=== PATIENT | male | born 1960 ===

== ENCOUNTER 2020-03-22 06:45 | Outpatient (REF) | payer MEDICARE, MEDICAID, SELFPAY ==
[2020-03-22 07:18] LABS: MANUAL DIFF FLAG NO
[2020-03-22 07:25] LABS: Basophils Absolute Auto 0.1 X10*3/uL (0.0-0.2); Basophils Percent Auto 0.7 % (0-2); Eosinophils Absolute Auto 0.2 X10*3/uL (0.0-0.4); Eosinophils Percent Auto 2.9 % (0-4); Hematocrit 41.3 % (42-52); Hemoglobin 13.8 g/dl (14.0-18.0); Imm Gran Abs Auto 0.01 X10*3/uL (0.00-0.03); Imm Gran Pct Auto 0.1 % (0.0-0.4); Lymphocytes Absolute Auto 2.3 X10*3/uL (1.2-4.9); Mean Corpuscular HGB Conc 33.4 g/dl (31.0-36.0); Mean Corpuscular Hemoglobin 29.9 pg (27.0-33.0); Mean Corpuscular Volume 89.4 fL (80-98); Monocytes Absolute Auto 0.7 X10*3/uL (0.1-1.2); Monocytes Percent Auto 10.1 % (2-11); Neutrophils Absolute Auto 3.6 X10*3/uL (2.0-8.3); Neutrophils Percent Auto 52.2 % (45-73); Platelet Count 192 X10*3/uL (160-400); Red Blood Count 4.62 X10*6/uL (4.60-5.80); Red Cell Distribution Width 12.6 % (11.0-16.0); White Blood Count 6.9 X10*3/uL (4.8-10.8)
[2020-03-22 07:41] LABS: Alanine Aminotransferase 76 U/L (0-40); Albumin Level 4.2 g/dL (3.5-5.0); Alkaline Phosphatase 74 U/L (39-117); Anion Gap 14 (12-20); Aspartate Amino Transferase 35 U/L (5-37); Bilirubin Total 0.3 mg/dL (0.0-1.0); Blood Urea Nitrogen 10 mg/dL (9-16); Calcium 8.9 mg/dL (8.4-10.2); Carbon Dioxide 25 mmol/L (22-29); Chloride 103 mmol/L (96-108); Cholesterol 121 mg/dL; Estimated Glomerular Filt Rate > 60; Glucose Random 142 mg/dL (60-115); HDL Cholesterol 39 mg/dL; LDL Cholesterol Calculated 63 mg/dl; Potassium 3.8 mmol/l (3.3-5.1); Sodium 138 mmol/L (135-145); Total Protein 7.5 g/dL (6.5-8.0); Triglycerides 95 mg/dL
[2020-03-22 08:06] LABS: Folate 13.8 ng/mL (> or = 4.0); Free T4 (Free Thyroxine) 0.82 ng/dL (0.71-1.85); Prostate Specific Antigen Scr 0.05 ng/mL (<0.05-4.0); Thyroid Stimulating Hormone 1.43 uIU/mL (0.32-4.0); Vitamin B12 525 pg/mL (200-900)
[2020-03-22 09:20] LABS: Creatinine Urine 158.94 mg/dL; Microalbum/Creatinine Ratio Ur 13.8 ug/mg cr
== END 2020-03-22 06:46 | disposition home or self-care (01) ==
LOC: HO.LAB 06:45
PROVIDERS: Visit Provider Internal Medicine
DX: E11.65 Type 2 diabetes mellitus with hyperglycemia (principal); E78.00 Pure hypercholesterolemia, unspecified; I10 Essential (primary) hypertension; Z85.46 Personal history of malignant neoplasm of prostate
CPT/HCPCS: 36415; 80053; 80061; 82043; 82607; 82746; 84153; 84439; 84443; 85025

== ENCOUNTER → 2020-09-27 10:48 | Outpatient (BNVA) | payer MEDICARE, MEDICAID, SELFPAY | PROVIDERS: PCP Internal Medicine; Visit Provider Urology | DX: Z13.89 Encounter for screening for other disorder (principal) | CPT/HCPCS: 99212 ==

== ENCOUNTER 2021-10-16 15:46 | Outpatient (REF) | payer MEDICARE, MEDICAID, SELFPAY ==
[2021-10-16 16:13] LABS: MANUAL DIFF FLAG NO
[2021-10-16 16:40] LABS: Basophils Absolute Auto 0.1 X10*3/uL (0.0-0.2); Basophils Percent Auto 0.7 % (0-2); Eosinophils Absolute Auto 0.2 X10*3/uL (0.0-0.4); Eosinophils Percent Auto 2.7 % (0-4); Hematocrit 41.3 % (42.0-52.0); Hemoglobin 13.8 g/dl (14.0-18.0); Imm Gran Abs Auto 0.01 X10*3/uL (0.00-0.03); Imm Gran Pct Auto 0.1 % (0.0-0.4); Lymphocytes Absolute Auto 2.9 X10*3/uL (1.2-4.9); Lymphocytes Percent Auto 42.7 % (20-40); Mean Corpuscular HGB Conc 33.4 g/dl (31.0-36.0); Mean Corpuscular Hemoglobin 29.7 pg (27.0-33.0); Mean Corpuscular Volume 88.8 fL (80.0-98.0); Monocytes Absolute Auto 0.6 X10*3/uL (0.1-1.2); Monocytes Percent Auto 8.7 % (2-11); Neutrophils Percent Auto 45.1 % (45-73); Platelet Count 187 X10*3/uL (160-400); Red Blood Count 4.65 X10*6/uL (4.60-5.80); Red Cell Distribution Width 12.6 % (11.0-16.0); White Blood Count 6.7 X10*3/uL (4.8-10.8)
[2021-10-16 17:27] LABS: Alanine Aminotransferase 62 U/L (0-40); Albumin Level 4.5 g/dL (3.5-5.0); Alkaline Phosphatase 84 U/L (39-117); Anion Gap 15 (12-20); Aspartate Amino Transferase 32 U/L (5-37); Bilirubin Total 0.4 mg/dL (0.0-1.0); Blood Urea Nitrogen 13 mg/dL (9-16); Carbon Dioxide 24 mmol/L (22-29); Chloride 102 mmol/L (96-108); Cholesterol 122 mg/dL; Estimated Glomerular Filt Rate > 60; Glucose Fasting 111 mg/dL (60-99); HDL Cholesterol 36 mg/dL; LDL Cholesterol Calculated 67 mg/dl; Potassium 4.1 mmol/L (3.3-5.1); Sodium 137 mmol/L (135-145); Total Protein 7.9 g/dL (6.5-8.0); Triglycerides 96 mg/dL
[2021-10-16 17:54] LABS: Prostate Specific Antigen < 0.05 ng/mL (<0.05-4.0)
[2021-10-17 05:37] LABS: Estimated Average Glucose 160 mg/dL; Hemoglobin A1c % 7.2 %
== END 2021-10-16 15:47 | disposition home or self-care (01) ==
LOC: HO.LAB 15:46
PROVIDERS: Nurse Practitioner Acute Care; PCP Internal Medicine; Visit Provider Urology
DX: C61 Malignant neoplasm of prostate (principal); E11.65 Type 2 diabetes mellitus with hyperglycemia; Z12.5 Encounter for screening for malignant neoplasm of prostate
CPT/HCPCS: 36415; 80053; 80061; 83036; 84153; 85025

== ENCOUNTER → 2021-12-04 09:08 | Outpatient (BNVA) | payer MEDICARE, MEDICAID, SELFPAY | PROVIDERS: PCP Internal Medicine; Visit Provider Urology | DX: C61 Malignant neoplasm of prostate (principal); R39.15 Urgency of urination; R35.0 Frequency of micturition; R32 Unspecified urinary incontinence; Z79.899 Other long term (current) drug therapy | CPT/HCPCS: 51798; 99212 ==

== ENCOUNTER 2022-06-05 16:15 | Outpatient (REF) | payer MEDICARE, MEDICAID, SELFPAY ==
[2022-06-05 18:15] LABS: Prostate Specific Antigen < 0.10 ng/mL (<0.05-4.0)
== END 2022-06-05 16:16 | disposition home or self-care (01) ==
LOC: HO.LAB 16:15
PROVIDERS: PCP Internal Medicine; Visit Provider Urology
DX: Z12.5 Encounter for screening for malignant neoplasm of prostate (principal); C61 Malignant neoplasm of prostate; N13.8 Other obstructive and reflux uropathy; N40.1 Benign prostatic hyperplasia with lower urinary tract symptoms
CPT/HCPCS: 36415; 84153

== ENCOUNTER → 2022-06-12 11:37 | Outpatient (BNVA) | payer MEDICARE, MEDICAID, SELFPAY | PROVIDERS: PCP Internal Medicine; Visit Provider Urology | DX: R35.0 Frequency of micturition (principal); R39.15 Urgency of urination | CPT/HCPCS: 51798; 99212 ==

== ENCOUNTER 2022-11-06 06:45 | Outpatient (REF) | payer MEDICARE, MEDICAID, SELFPAY ==
[2022-11-06 06:57] LABS: MANUAL DIFF FLAG NO
[2022-11-06 07:32] LABS: Basophils Absolute Auto 0.1 X10*3/uL (0.0-0.2); Basophils Percent Auto 1.4 % (0-2); Eosinophils Absolute Auto 0.1 X10*3/uL (0.0-0.4); Eosinophils Percent Auto 2.7 % (0-4); Hematocrit 41.2 % (42.0-52.0); Hemoglobin 13.6 g/dl (14.0-18.0); Immature Retic Fraction 8.1 % (2.3-13.4); Lymphocytes Percent Auto 44.3 % (20-40); Mean Corpuscular Hemoglobin 29.4 pg (27.0-33.0); Mean Corpuscular Volume 89.2 fL (80.0-98.0); Mean Platelet Volume 11.1 fL (9.4-12.4); Monocytes Absolute Auto 0.5 X10*3/uL (0.1-1.2); Monocytes Percent Auto 12.2 % (2-11); Neutrophils Absolute Auto 1.7 x10*3/uL (2.0-8.3); Neutrophils Percent Auto 39.4 % (45-73); Platelet Count 191 X10*3/uL (160-400); Red Blood Count 4.62 X10*6/uL (4.60-5.80); Red Cell Distribution Width 12.7 % (11.0-16.0); Retic HGB Equivalent 35.7 pg (30.0-35.0); Reticulocyte Percent 1.2 % (0.5-1.8); Reticulocytes Absolute 0.057 X10*6/uL (0.026-0.095); White Blood Count 4.4 X10*3/uL (4.8-10.8)
[2022-11-06 08:24] LABS: Creatinine Urine 83.02 mg/dL
[2022-11-06 08:26] LABS: Alanine Aminotransferase 46 U/L (0-40); Albumin Level 4.1 g/dL (3.5-5.0); Alkaline Phosphatase 74 U/L (39-117); Anion Gap 16 (12-20); Aspartate Amino Transferase 25 U/L (5-37); Bilirubin Total 0.5 mg/dL (0.0-1.0); Blood Urea Nitrogen 10 mg/dL (9-16); Calcium 9.2 mg/dL (8.4-10.2); Carbon Dioxide 23 mmol/L (22-29); Chloride 103 mmol/L (96-108); Cholesterol 114 mg/dL; Estimated Glomerular Filt Rate > 60; Glucose Random 130 mg/dL (60-115); HDL Cholesterol 32 mg/dL; LDL Cholesterol Calculated 67 mg/dl; Potassium 3.7 mmol/L (3.3-5.1); Sodium 138 mmol/L (135-145); Total Protein 7.7 g/dL (6.5-8.0); Triglycerides 76 mg/dL
[2022-11-06 08:35] LABS: PSA,Total (Free>4and<10) < 0.10 ng/mL (0.00-4.00)
[2022-11-06 08:46] LABS: Ferritin 450 ng/mL (20-250); Free T4 (Free Thyroxine) 0.93 ng/dL (0.71-1.85); Thyroid Stimulating Hormone 0.96 uIU/mL (0.32-4.0)
[2022-11-06 08:49] LABS: Folate 12.1 ng/mL (> or = 4.0); Vitamin B12 645 pg/mL (200-900)
== END 2022-11-06 06:46 | disposition home or self-care (01) ==
LOC: HO.LAB 06:45
PROVIDERS: PCP Internal Medicine; Visit Provider Internal Medicine
DX: Z12.5 Encounter for screening for malignant neoplasm of prostate (principal); E11.65 Type 2 diabetes mellitus with hyperglycemia; E78.00 Pure hypercholesterolemia, unspecified; Z85.46 Personal history of malignant neoplasm of prostate
CPT/HCPCS: 36415; 80053; 80061; 82043; 82607; 82728; 82746; 84153; 84439; 84443; 85025; 85045

== ENCOUNTER 2022-11-14 12:22 | Outpatient (AMB) | payer MEDICARE, MEDICAID, SELFPAY ==
[2022-11-14 12:25] VITALS: BP 118/76; PULSE 74; O2SAT 95; BMI 28.9
--- NOTE | 2022-11-14 12:25 | A.OFFPC_ITS ---
Vital Signs 11/14/22 12:25 Height 6 ft Weight 96.615 kg BMI 28.9 BP 118/76 Blood Pressure Location Lt brachial Position Sitting Pulse 74 Pulse Source Pulse Oximeter Pulse Oximetry (%) 95 Oxygen Delivery Method Room Air Intake Visit Reasons: DM Allergies No Known Allergies [No Known Allergies*] Allergy (Verified 11/14/22 12:25) Medication List - Last Reconciled 11/14/22 by Mp Rust MD acetaminophen ER (Mapap Arthritis Pain) 650 mg PO Q8H PRN amlodipine 5 mg PO DAILY ammonium lactate 12% 1 appl topical BID blood sugar diagnostic (Contour Next Test Strips) As directed calcium carbonate 600 mg PO DAILY cholecalciferol (vitamin D3) 50 mcg (2 x 25 mcg (1,000 unit)) PO DAILY clotrimazole 1% 1 appl topical BID [countour NExT test strips check the blood sugar once a day As directed] fluvoxamine 100 mg PO BID hydroxyzine HCl 25 mg PO Q8H PRN lancets (BD Ultra-Fine II Lancets) As directed check the blood sugars once a day lisinopril 10 mg PO DAILY 90 days lorazepam (Ativan) 0.5 mg orally 30 minutes before doctor's appointment; 30 days metformin 1,000 mg PO BID 30 days mineral oil-isopropyl myristat (Hydrocerin lotion) 1 appl topical TID-QID PRN oxybutynin chloride ER 5 mg PO DAILY 90 days [id number] 5-10-100 mg/5 mL (Tussin CF (PE-DM-guaif)) 5 mL PO Q6H PRN risperidone (Risperdal) 1 mg PO DAILY risperidone (Risperdal) 2 mg with 1 mg Q 8 am daily; tamsulosin 0.4 mg PO QPM Tobacco use date assessed: 06/10/22 Fall risk assessment: No Falls in past year Last assessed Fall Risk: 11/14/22 Dental Screening Dental Screen Date: 11/14/22 Did you have a dental visit in the last 12 months?: Yes Did you have a dental problem in the last 6 months where you did not have access to dental care?: No Was dental information given to patient?: Patient has dentist HPI DM HPI Details 62-year-old overweight male with a history of echolalia history of prostate cancer hypertension diabetes mellitus and tubular adenoma coming in for follow-up. Last seen in July 2022 blood work requested [facility] Medical History (Updated 11/14/22 @ 12:54 by Mp Rust MD) Anxiety COVID-19 virus infection Echolalia History of prostate cancer Hypertension Obesity (BMI 30-39.9) Screening for colon cancer Tubular adenoma of colon Type 2 diabetes mellitus with hyperglycemia Urinary incontinence Surgical History History of hemicolectomy Family History Father No problems noted. Mother No problems noted. Social History Housing: Assisted Living Facility Alcohol intake: never Patient Tobacco Use Status: Never used Tobacco e-Cigarette/Vaping Use: Never Used Second Hand Smoke Exposure: No service: No Current occupational status: disabled Current occupational exposures/hazards: No Cognitive needs: Yes Hearing needs: No Vision needs: No Questionnaire PHQ-9 Over the last 2 weeks, how often have you been bothered by any of the following problems? 1. Little interest or pleasure in doing things: nearly every day 2. Feeling down, depressed, or hopeless: nearly every day 3. Trouble falling or staying asleep, or sleeping too much: nearly every day 4. Feeling tired or having little energy: nearly every day 5. Poor appetite or overeating: nearly every day 6. Feeling bad about yourself - or that you are a failure or have let yourself or your family down: nearly every day 7. Trouble concentrating on things, such as reading the newspaper or watching television: nearly every day 8. Moving or speaking so slowly that other people could have noticed. Or the opposite - being so fidgety or restless that you have been moving around a lot more than usual: nearly every day 9. Thoughts that you would be better off or of hurting yourself in some way: not at all Total score: 24 Depression Screening Interpretation: Positive Depression Screening Follow-up: In treatment 99805 - PHQ-9 Billing: Yes Source: Developed by Drs. Mann Jarvis, Karime Fischer, Christian Cabrera and colleagues, with an educational july from [employer]. Thrive Questionnaire Date Thrive assessed: 08/08/22 AUDIT C Alcohol Use Questionnaire (AUDIT-C) 1. How often do you have a drink containing alcohol?: Never 2. How many drinks containing alcohol do you have on a typical day when you are drinking?: 1 or 2 (0) 3. How often do you have six or more drinks on one occasion?: Never Total Score: 0 Score Reviewed/Action Taken: No DEVIN-7 AMB Questionnaire DEVIN-7 Date DEVIN - 7 assessed: 08/08/22 Source: Developed by Drs. Mann Jarvis, Karime Fischer, Christian Cabrera and colleagues, with an educational july from [employer]. Physical exam (Primary Care) Vital Signs: Last Vital Signs Pulse 74 11/14/22 12:25 BP 118/76 11/14/22 12:25 Pulse Ox 95 11/14/22 12:25 Oxygen Delivery Method Room Air 11/14/22 12:25 BMI result Body Mass Index 28.9 Tobacco/Smoking Status: Tobacco use Status Tobacco use date assessed 06/10/22 11/14/22 12:26 Patient Tobacco Use Status Never used Tobacco 11/14/22 12:26 e-Cigarette/Vaping Use Never Used 11/14/22 12:26 PHQ-9: PHQ-9 Score PHQ-9: Total score 24 11/14/22 12:44 Depression Screening Interpretation: Positive Depression Screening Follow-up: In treatment Thrive Assessment: Date of Thrive Assessment Date Thrive assessed 08/08/22 11/14/22 12:26 Const General: alert; No acute distress Eyes Conjunctivae: conjunctivae normal Resp Auscultation: clear to auscultation bilaterally Cardio Rate: regular rate Rhythm: regular rhythm GI Inspection: Yes normal to inspection Extrem General: Yes normal to inspection and No edema Results AMB Hemoglobin A1c AMB Hemoglobin A1c 6.4 % Last Edit by Jossie Butt CMA on 11/14/22 12 :45 Immunizations tetanus-diphtheria toxoids-Td Performing Provider: Mp Rust MD Administered by: Jossie Butt CMA on 11/14/22 13:02 Dose Route Admin Location Lot Number Expiration Date NDC Senior Asset Manager 0.5 mL IM Left Deltoid [id number] 08/17/23 [id number] [employer] VIS Given Date VIS Provided VIS Publication Date 11/14/22 Single Vaccine 20 Eligibility Eligibility Date Funding Source Not VFC Eligible 11/14/22 State funds Results Reviewed Results Reviewed: Laboratory Last Values Hgb A1c (Clinic) 6.4 % (4.0-6.0) H 11/14/22 12:26 Assessment and Plan Assessment & Plan (1) Type 2 diabetes mellitus with hyperglycemia: Comment: Dr. Sanchez Code(s): E11.65 - Type 2 diabetes mellitus with hyperglycemia Qualifiers: Diabetes mellitus residential insulin use: without terminal operations supervisor use Qualified Code(s): E11.65 - Type 2 diabetes mellitus with hyperglycemia Plan: Decrease the amount of carbohydrate intake, pasta, bread, rice and potatoes are all sugar and that is aside from all the sweet stuff, remember that fruits are good but they are Sweet also. Hemoglobin A1c goal of less than 6.5 patient is presently on metformin 1000 mg twice a day (2) Hypertension: Code(s): I10 - Essential (primary) hypertension Qualifiers: Hypertension type: essential hypertension Qualified Code(s): I10 - Essential (primary) hypertension Plan: Continue with blood pressure medication. Decrease salt intake and exercise patient is taking lisinopril 10 mg once a day and amlodipine 5 mg once a day (3) History of prostate cancer: Comment: Two thousand fourteen seed implant Maria R March 2014Dr. Barker Code(s): Z85.46 - Personal history of malignant neoplasm of prostate Plan: Patient is on tamsulosin prostate number is less than 0.1 (4) Overweight (BMI 25.0-29.9): Code(s): E66.3 - Overweight Plan: Continue with diet and exercise (5) Tubular adenoma of colon: Comment: February 2012 tubular adenoma 3 years February 2016 Code(s): D12.6 - Benign neoplasm of colon, unspecified Plan: Reminded about colon cancer screening (6) Echolalia: Code(s): R48.8 - Other symbolic dysfunctions Plan: Continue to follow-up with psychiatry and counseling (7) Contact dermatitis and other eczema due to other specified agent: Code(s): L25.8 - Unspecified contact dermatitis due to other agents Orders: Orders Td State Immunization Today Z23 - Encounter for immunization AMB Hemoglobin A1c Today Z13.9 - Encounter for screening, unspecified Referrals Gastroenterology Referral D12.6 - Benign neoplasm of colon, unspecified Medications: New triamcinolone acetonide 0.5% apply to posterior neck rash 1 appl topical BID 15 grams 0RF 1 week L25.8 - Unspecified contact dermatitis due to other agents Coding Level of Care Code Est Pt Level 4 (19299) Diagnoses Type 2 diabetes mellitus with hyperglycemia E11.65 Diabetes mellitus terminal operations supervisor insulin use: without terminal operations supervisor use Hypertension I10 Hypertension type: essential hypertension History of prostate cancer Z85.46 Overweight (BMI 25.0-29.9) E66.3 Tubular adenoma of colon D12.6 Echolalia R48.8 Contact dermatitis and other eczema due to other specified agent L25.8
== END 2022-11-14 13:09 | disposition home or self-care (01) ==
PROVIDERS: Visit Provider Internal Medicine
DX: E11.65 Type 2 diabetes mellitus with hyperglycemia (principal); I10 Essential (primary) hypertension; Z85.46 Personal history of malignant neoplasm of prostate; Z23 Encounter for immunization; E66.3 Overweight; D12.6 Benign neoplasm of colon, unspecified; R48.8 Other symbolic dysfunctions; L25.8 Unspecified contact dermatitis due to other agents; Z13.9 Encounter for screening, unspecified
CPT/HCPCS: 83036; 90471; 90714; 99214

== ENCOUNTER 2022-12-04 08:57 | Outpatient (AMB) | payer MEDICARE, MEDICAID, SELFPAY ==
[2022-12-04 09:03] VITALS: BMI 28.4
--- NOTE | 2022-12-04 09:03 | A.OFFVIS_ITS ---
Intake Vital Signs 12/04/22 09:03 Height 6 ft Weight 209 lb 7.026 oz BMI 28.4 Blood Pressure Location Lt brachial Position Sitting Intake Visit Reasons: Colonoscopy Screening Intake Note: Javed presents in the office as a new patient colonoscopy screening. CC: No concerns today! Auto Body Shop Manager Required: No Allergies No Known Allergies [No Known Allergies*] Allergy (Verified 12/04/22 09:06) Medication List - Last Reconciled 12/04/22 by Ivett Chatterjee PA-C acetaminophen ER (Mapap Arthritis Pain) 650 mg PO Q8H PRN amlodipine 5 mg PO DAILY ammonium lactate 12% 1 appl topical BID blood sugar diagnostic (Contour Next Test Strips) As directed calcium carbonate 600 mg PO DAILY cholecalciferol (vitamin D3) 50 mcg (2 x 25 mcg (1,000 unit)) PO DAILY clotrimazole 1% 1 appl topical BID [countour NExT test strips check the blood sugar once a day As directed] fluvoxamine 100 mg PO BID hydroxyzine HCl 25 mg PO Q8H PRN lancets (BD Ultra-Fine II Lancets) As directed check the blood sugars once a day lisinopril 10 mg PO DAILY 90 days lorazepam (Ativan) 0.5 mg orally 30 minutes before doctor's appointment; 30 days metformin 1,000 mg PO BID 30 days mineral oil-isopropyl myristat (Hydrocerin lotion) 1 appl topical TID-QID PRN oxybutynin chloride ER 5 mg PO DAILY 90 days [id number]-[id number] 5-10-100 mg/5 mL (Tussin CF (PE-DM-guaif)) 5 mL PO Q6H PRN risperidone (Risperdal) 1 mg PO DAILY risperidone (Risperdal) 2 mg with 1 mg Q 8 am daily; tamsulosin 0.4 mg PO QPM triamcinolone acetonide 0.5% 1 appl topical BID 1 week HPI HPI Comments History of Present Illness Details A 62 y/o male history of colon polyps-due for repeat colonoscopy here today with patient advocate-she speaks for him Is not communicative-he is cooperative He has good appetite normal bowels no GI complaints Takes metformin for diabetes no insulin. Lives in a intermediate No nausea, vomiting, hematemesis, hematochezia fever chills PFSH Medical History Anxiety COVID-19 virus infection Echolalia History of prostate cancer Hypertension Obesity (BMI 30-39.9) Screening for colon cancer Tubular adenoma of colon Type 2 diabetes mellitus with hyperglycemia Urinary incontinence Surgical History History of hemicolectomy Family History Father No problems noted. Mother No problems noted. Social History Housing: Assisted Living Facility Alcohol intake: never Patient Tobacco Use Status: Never used Tobacco e-Cigarette/Vaping Use: Never Used Second Hand Smoke Exposure: No service: No Current occupational status: disabled Current occupational exposures/hazards: No Cognitive needs: Yes Hearing needs: No Vision needs: No Review of Systems Const All systems reviewed & are unremarkable except as noted in HPI and below Card Denies chest pain and Denies dyspnea Resp Denies dyspnea GI Reports no additional complaints, Denies nausea and Denies vomiting Physical Exam Vital Signs: BMI result Body Mass Index 28.4 Const General: cooperative, healthy appearing and comfortable Limitations: altered mental status and language barrier Eyes Sclerae: sclerae normal Resp Effort & Inspection: normal respiratory effort Auscultation: clear to auscultation bilaterally, no rales, no rhonchi and no wheezes Cardio Rate: regular rate Rhythm: regular rhythm Heart sounds: S1 normal heart sound present and S2 normal heart sound present GI Palpation (GI): Soft to palpation and nontender Auscultation: normal bowel sounds Skin General skin exam: no rashes or lesions noted Extrem Right upper extremity: Extremity exam: right hand Details: other Psych Appearance: well kempt Attitude: cooperative Results Reviewed Results Reviewed: Impression and Post Procedure Diagnosis: Colonoscopy Findings: Polyp removed internal Hemorrhoids on retroflexed exam. Plan: Await pathology results high fiber diet Repeat Colonoscopy in 3 yrs due to prior history Assessment & Plan Assessment & Plan (1) Tubular adenoma of colon: Comment: 2010-Dr. Mehta-lap hemicolectomy for tubular adenoma with high-grade dysplasia February 2012 tubular adenoma 3 years February 2016 and 2019- Dr. Jhaveri Code(s): D12.6 - Benign neoplasm of colon, unspecified Plan: 2019-Impression and Post Procedure Diagnosis: Colonoscopy Findings: Polyp removed internal Hemorrhoids on retroflexed exam. Plan: Await pathology results high fiber diet Repeat Colonoscopy in 3 yrs due to prior history Orders: Orders Colonoscopy - GI Use Only Today D12.6 - Benign neoplasm of colon, unspecified Medications: New bisacodyl (Dulcolax (bisacodyl)) Take 4 tablets by mouth at 12:00pm the day before your procedure. 20 mg (4 x 5 mg) PO ONCE 1 day 4 tabs 0RF colonoscopy prep Z12.11 - Encounter for screening for malignant neoplasm of colon polyethylene glycol 3350 (Miralax) Take as directed by mouth the day before your procedure. 238 grams PO ONCE 1 day PRN 238 grams 0RF laxative effect Patient Instructions: 62-year-old male s/p hemicolectomy for tubular adenoma with high-grade dysplasia, further history of colon adenomas - today with patient advocate-no GI concerns Due for polyp surveillance colonoscopy-MiraLax Gatorade split prep literature given Omit metformin evening before procedure, no diabetes medications morning of procedure Encouraged to call questions or concerns Coding Level of Care Code New Pt Level 3 (95940) Diagnoses Tubular adenoma of colon D12.6 Time Spent (min) 30 Comment Patient advocate present
== END 2022-12-04 09:41 | disposition home or self-care (01) ==
PROVIDERS: PCP Internal Medicine; Visit Provider Physician Assistant
DX: D12.6 Benign neoplasm of colon, unspecified (principal)
CPT/HCPCS: 99203

== ENCOUNTER → 2022-12-04 08:57 | Outpatient (BNVA) | payer MEDICARE, MEDICAID, SELFPAY | PROVIDERS: PCP Internal Medicine; Visit Provider Physician Assistant | DX: Z86.010 Personal history of colon polyps (principal) | CPT/HCPCS: 99202 ==

== ENCOUNTER 2023-02-17 09:07 | Outpatient (AMB) | payer MEDICARE, MEDICAID, SELFPAY ==
[2023-02-17 09:09] VITALS: BP 154/82; PULSE 80; O2SAT 98; BMI 28.2
--- NOTE | 2023-02-17 09:09 | A.OFFPC_ITS ---
Vital Signs 02/17/23 09:09 02/17/23 09:46 Height 6 ft Weight 208 lb BMI 28.2 BP 154/82 H 140/80 H Blood Pressure Location Lt brachial Lt brachial Position Sitting Sitting Pulse 80 Pulse Source Pulse Oximeter Pulse Oximetry (%) 98 Oxygen Delivery Method Room Air Intake Visit Reasons: 3 mon f/u Allergies No Known Allergies [No Known Allergies*] Allergy (Verified 02/17/23 09:10) Tobacco use date assessed: 06/10/22 Fall risk assessment: No Falls in past year Last assessed Fall Risk: 02/17/23 Dental Screening Dental Screen Date: 02/17/23 Did you have a dental visit in the last 12 months?: Yes Did you have a dental problem in the last 6 months where you did not have access to dental care?: No Was dental information given to patient?: Patient has dentist HPI 3 mon f/u HPI Details 62-year-old overweight male with a histo ry of cognitive and behavioral problem with echolalia controlled diabetes mellitus hypertension history of prostate cancer coming in for follow-up patient was last seen in November 2022 flu shot 01/2023. Otherwise patient has been doing fine with no nausea no vomiting no chest pains no shortness of breath no bowel bladder symptoms PFSH Medical History Anxiety COVID-19 virus infection Echolalia History of prostate cancer Hypertension Obesity (BMI 30-39.9) Screening for colon cancer Tubular adenoma of colon Type 2 diabetes mellitus with hyperglycemia Urinary incontinence Surgical History History of hemicolectomy Family History (Updated 02/17/23 @ 09:11 by Jossie Butt CMA) Father No problems noted. Mother No problems noted. Social History Housing: Assisted Living Facility Alcohol intake: never Patient Tobacco Use Status: Never used Tobacco e-Cigarette/Vaping Use: Never Used Second Hand Smoke Exposure: No service: No Current occupational status: disabled Current occupational exposures/hazards: No Cognitive needs: Yes Hearing needs: No Vision needs: No Questionnaire PHQ-9 Over the last 2 weeks, how often have you been bothered by any of the following problems? 1. Little interest or pleasure in doing things: nearly every day 2. Feeling down, depressed, or hopeless: nearly every day 3. Trouble falling or staying asleep, or sleeping too much: nearly every day 4. Feeling tired or having little energy: nearly every day 5. Poor appetite or overeating: nearly every day 6. Feeling bad about yourself - or that you are a failure or have let yourself or your family down: nearly every day 7. Trouble concentrating on things, such as reading the newspaper or watching television: nearly every day 8. Moving or speaking so slowly that other people could have noticed. Or the opposite - being so fidgety or restless that you have been moving around a lot more than usual: nearly every day 9. Thoughts that you would be better off or of hurting yourself in some way: not at all Total score: 24 Depression Screening Interpretation: Positive Depression Screening Follow-up: In treatment Depression Screening Done: Yes 71525 - PHQ-9 Billing: Yes Source: Developed by Drs. Mann Jarvis, Christian Luna and colleagues, with an educational july from [employer]. Thrive Questionnaire Date Thrive assessed: 08/08/22 AUDIT C Alcohol Use Questionnaire (AUDIT-C) 1. How often do you have a drink containing alcohol?: Never 2. How many drinks containing alcohol do you have on a typical day when you are drinking?: 1 or 2 (0) 3. How often do you have six or more drinks on one occasion?: Never Total Score: 0 Score Reviewed/Action Taken: No DEVIN-7 AMB Questionnaire DEVIN-7 Date DEVIN - 7 assessed: 08/08/22 Source: Developed by Drs. Mann Jarvis, Christian Luna and colleagues, with an educational july from [employer]. Physical exam (Primary Care) Vital Signs: Last Vital Signs Pulse 80 02/17/23 09:09 BP 140/80 H 02/17/23 09:46 Pulse Ox 98 02/17/23 09:09 Oxygen Delivery Method Room Air 02/17/23 09:09 BMI result Body Mass Index 28.2 Tobacco/Smoking Status: Tobacco use Status Tobacco use date assessed 06/10/22 02/17/23 09:12 Patient Tobacco Use Status Never used Tobacco 02/17/23 09:12 e-Cigarette/Vaping Use Never Used 02/17/23 09:12 PHQ-9: PHQ-9 Score PHQ-9: Total score 24 02/17/23 09:41 Depression Screening Interpretation: Positive Depression Screening Follow-up: In treatment Thrive Assessment: Date of Thrive Assessment Date Thrive assessed 08/08/22 02/17/23 09:12 Const General: alert; No acute distress Eyes Conjunctivae: conjunctivae normal Resp Auscultation: clear to auscultation bilaterally Cardio Rate: regular rate Rhythm: regular rhythm GI Inspection: Yes normal to inspection Extrem General: Yes normal to inspection and No edema Results AMB Hemoglobin A1c AMB Hemoglobin A1c 6.4 % Last Edit by Jossie Butt CMA on 02/17/23 09 :36 Results Reviewed Results Reviewed: Laboratory Last Values Hgb A1c (Clinic) 6.4 % (4.0-6.0) H 02/17/23 09:13 Assessment and Plan Assessment & Plan (1) Type 2 diabetes mellitus with hyperglycemia: Comment: Dr. Sanchez Code(s): E11.65 - Type 2 diabetes mellitus with hyperglycemia Qualifiers: Diabetes mellitus extermination supervisor insulin use: without extermination supervisor use Qualified Code(s): E11.65 - Type 2 diabetes mellitus with hyperglycemia Plan: Decrease the amount of carbohydrate intake, pasta, bread, rice and potatoes are all sugar and that is aside from all the sweet stuff, remember that fruits are good but they are Sweet also. Hemoglobin A1c goal of less than 6.5. Patient on metformin a 1000 mg twice a day (2) Hypertension: Code(s): I10 - Essential (primary) hypertension Qualifiers: Hypertension type: essential hypertension Qualified Code(s): I10 - Essential (primary) hypertension Plan: Continue with blood pressure medication. Decrease salt intake and exercise patient is on lisinopril 10 mg once a day and amlodipine 5 mg once a day (3) History of prostate cancer: Comment: Two thousand fourteen seed implant Maria R March 2014Dr. Barker Code(s): Z85.46 - Personal history of malignant neoplasm of prostate Plan: Continue to follow-up with Urology. (4) Overweight (BMI 25.0-29.9): Code(s): E66.3 - Overweight Plan: Continue with diet and exercise (5) Tubular adenoma of colon: Comment: 2010-Dr. Mehta-lap hemicolectomy for tubular adenoma with high-grade dysplasia February 2012 tubular adenoma 3 years February 2016 and 2019- Dr. Jhaveri Code(s): D12.6 - Benign neoplasm of colon, unspecified Plan: Colonoscopy planned March 2020 Orders: Orders AMB Hemoglobin A1c Today Z13.9 - Encounter for screening, unspecified Coding Level of Care Code Est Pt Level 4 (48264) Diagnoses Type 2 diabetes mellitus with hyperglycemia, without long-term current use of insulin E11.65 Diabetes mellitus detention insulin use: without extermination supervisor use Essential hypertension I10 Hypertension type: essential hypertension History of prostate cancer Z85.46 Overweight (BMI 25.0-29.9) E66.3 Tubular adenoma of colon D12.6
[2023-02-17 09:46] VITALS: BP 140/80
== END 2023-02-17 11:36 | disposition home or self-care (01) ==
PROVIDERS: PCP Internal Medicine; Visit Provider Internal Medicine
DX: E11.65 Type 2 diabetes mellitus with hyperglycemia (principal); I10 Essential (primary) hypertension; Z85.46 Personal history of malignant neoplasm of prostate; E66.3 Overweight; D12.6 Benign neoplasm of colon, unspecified
CPT/HCPCS: 83036; 99214

== ENCOUNTER 2023-03-16 09:04 | Day surgery (SDC) | payer MEDICARE, MEDICAID, SELFPAY ==
[2023-03-16 10:04] VITALS: BMI 28.0
[2023-03-16 10:15] VITALS: BP 125/80; PULSE 61; RESP 16; TEMP 36.4; O2SAT 97
[2023-03-16 10:32] LABS: Glucose, Whole Blood 111 mg/dL (60-115)
--- NOTE | 2023-03-16 11:05 | P.CONAN_ITS ---
[facility]LY [facility] Active Problems Active Problems: All Active Problems (Updated 12/04/22 @ 09:40 by Ivett Chatterjee PA-C) Contact dermatitis and other eczema due to other specified agent (Acute) Tubular adenoma of colon (Acute) Overweight (BMI 25.0-29.9) (Acute) Cough (Acute) Rhinitis (Acute) Foot fracture (Acute) Urinary frequency (Acute) Urinary urgency (Acute) Skin tag (Acute) Medicare annual wellness visit, subsequent (Acute) Urinary incontinence (Acute) Prostate cancer (Acute) Fatty liver (Acute) Mild anemia (Acute) History of prostate cancer (Acute) Echolalia (Acute) Hypertension (Acute) Type 2 diabetes mellitus with hyperglycemia (Acute) Past Medical History Medical History Anxiety COVID-19 virus infection Echolalia History of prostate cancer Hypertension Obesity (BMI 30-39.9) Screening for colon cancer Tubular adenoma of colon Type 2 diabetes mellitus with hyperglycemia Urinary incontinence Family History Family History (Updated 02/17/23 @ 09:11 by Jossie Butt [facility]) Father No problems noted. Mother No problems noted. Family history of problems with anesthesia: No Surgical History Surgical History History of hemicolectomy History of Problems with Anesthesia: No Social History Social History Housing: Assisted Living Facility Alcohol intake: never Patient Tobacco Use Status: Never used Tobacco e-Cigarette/Vaping Use: Never Used Second Hand Smoke Exposure: No Use of substances other than those prescribed or required for medical reasons: No Are you DNR?: No Advance Directives: No Advance Directives Information Provided: Yes Advance Directives on File: Yes service: No Current occupational status: disabled Current occupational exposures/hazards: No Cognitive needs: Yes Hearing needs: No Vision needs: No Meds Allergies Allergy/AdvReac Type Severity Reaction Status Date / Time No Known Allergies Allergy Verified 02/17/23 09:10 [No Known Allergies*] Home Medications Medication Instructions Recorded Confirmed Last Taken Type fluvoxamine 100 mg tablet 100 mg PO BID 03/19/20 03/16/23 03/16/23 History mineral oil-isopropyl myristat 1 appl topical TID-QID PRN Itching 03/19/20 03/16/23 03/16/23 History lotion (Hydrocerin lotion) risperidone 1 mg tablet (Risperdal) 1 mg PO DAILY 03/19/20 03/16/23 03/16/23 History risperidone 2 mg tablet (Risperdal) See Rx Instructions .Route DAILY 03/19/20 03/16/23 Unknown History Exam Height,Weight and Vital Signs: Height 6 ft Weight 93.553 kg Last Vital Signs Temp 97.6 F 03/16/23 10:15 Pulse 61 03/16/23 10:15 Resp 16 03/16/23 10:15 BP 125/80 03/16/23 10:15 Pulse Ox 97 03/16/23 10:15 O2 Del Method Room Air 03/16/23 10:15 Pertinent Lab Results Pertinent Lab Results: Laboratory Tests 03/16/23 10:25 POC Glucose 111 Airway Mallampati Class: Patient Non-Cooperative TM Dist: >3cm Neck ROM: Full Heart: rrr Lungs: cta Assessment and Plan Assessment Anesthesia Assessment: Anesthesia Plan Discussed and Chart Reviewed Final Anesthetic Review Family History of Problems with Anesthesia: No History of Problems with Anesthesia: No NPO: Yes ASA Class: III Final Preanesthetic Review: No Changes in Pt Med Stat, Meds/Allgs Chart Reviewed and Consent Obtained/Reviewed Patient Risk: Intermediate Procedure Risk: Intermediate Anesthetic Plan Anesthetic Plan: MAC: Disposition: Standard PACU
--- NOTE | 2023-03-16 11:14 | MHC.SHP ---
Pre-Procedural Eval Section A Date of Service: 03/16/23 The patient is an INPATIENT: No The History & Physical has been completed within 30 days and I have reviewed it.: No Section B Chief Complaint: Surveillance for colon polyps Relevant Family History (Specify if Yes): No Relevant Social History: None Present Medications: see Short Stay Collaborative assessment Medical History: Significant History (COVID-19 virus infection Echolalia History of prostate cancer Hypertension Obesity (BMI 30-39.9) Screening for colon cancer Tubular adenoma of colon Type 2 diabetes mellitus with hyperglycemia Urinary incontinence) History of Previous Operations: Relevant previous surgery/procedure and date(s) (Status post Right hemicolectomy) Allergies: Allergies Allergy/AdvReac Type Severity Reaction Status Date / Time No Known Allergies Allergy Verified 02/17/23 09:10 [No Known Allergies*] Review of Systems Sugical H&P ROS: Negative: Constitution, Cardiovascular, Respiratory and Gastrointestinal Exam Surgical H&P Exam: Normal: Heart, Normal: Lungs, Normal: Extremities and Normal: Abdomen Plan Diagnosis/Plan: Unchanged I have reviewed the history and physical and performed a pertinent physical examination on my patient. No changes have occurred unless specified. Time Spent With Patient Time: Total time managing care of this patient today ____ minutes.
--- NOTE | 2023-03-16 12:22 | W.PM.OPN ---
Operative Note Operative Note Date of Service: 03/16/23 Narrative: COLONOSCOPY TILL NEOTERMINAL ILEUM WITH SNARE POLYPECTOMY Pre-op diagnosis: Surveillance for colon polyps, patient is status post right hemicolectomy for large cecal polyp with high-grade dysplasia Post-op diagnosis:? Colon polyps, diverticulosis, hemorrhoids Endoscopist:? Marilyn Riggins MD Anesthesia:?MAC Consent: Indications for the procedure and potential complications of bleeding, perforation, reaction to medications and missed diagnosis were discussed with the Tomy Arita (pt's brother and HCP) and informed verbal consent was obtained. Instrument: Olympus CF H 190 L variable stiffness adult colonoscope Monitoring: Vital signs and clinical assessment, intermittent blood pressure monitoring, continuous EKG monitoring, Pulse oximetry and Carbon Dioxide monitoring were done throughout the procedure. Please see anesthesia flowsheet. Colon withdrawl time was 26 minutes. Procedure: The patient was placed in the left lateral decubitis position and pre-procedure medications were administered. After a digital rectal examination of the ano-rectum, the video colonoscope was inserted into the rectum and advanced through the colon to the ileo-colic anastomosis at 85 cms. The colonoscope was slowly withdrawn in a retrograde panoramic fashion and the colon mucosa was carefully examined including a retroflexed view of the rectum. Findings and interventions are described below. Procedure Difficulty: Without difficulty Findings: Terminal Ileum: Guerrero-terminal ileum appeared normal Transverse Colon: Normal Ileo-colic anastomosis at 85 cms. A 5-6 mm sessile polyp in the proximal TC - removed with a cold snare. Polyp was not retrieved Descending Colon: Normal Sigmoid Colon: A 4-5 mm sessile polyp - removed with a cold snare. Moderate diverticulosis Rectum: A 10-12 mm sessile polyp just inside the anal verge - seen on retroflexed exam. Polyp was removed with a cold snare. Residual polyp was ablated with a hot snare. Ano-rectum: Small internal hemorrhoids Colon preparation: Good after some irrigation Impression and Post Procedure Diagnosis: Colonoscopy Findings: Two small and one medium sized polyps removed - 1 polyp was not retrieved Moderate diverticulosis seen in the sigmoid colon Small hemorrhoids on retroflexed exam. Plan: Await pathology results Patient has an appointment on 03/30/23 in the GI Clinic with LEILA Patrick. Repeat Colonoscopy interval based on path results - in 3-5 years if polyps are adenomatous and due to a history of adenomatous colon polyps. Colon polyps and diverticulosis handouts were given in the discharge area
[2023-03-16 13:07] VITALS: BP 139/80; PULSE 78; RESP 16; TEMP 36.1; O2SAT 99
[2023-03-16 13:23] VITALS: BP 156/94; PULSE 77; RESP 18; TEMP 36.2; O2SAT 99
[2023-03-16 13:38] VITALS: BP 140/79; PULSE 92; RESP 18; O2SAT 98
[2023-03-16 13:46] VITALS: TEMP 36.4
== END 2023-03-16 14:02 | disposition home or self-care (01) ==
PROVIDERS: PCP Internal Medicine; Visit Provider Internal Medicine Gastroenterology
PROC: 0DJD8ZZ Inspection of Lower Intestinal Tract, Via Natural or Artificial Opening Endoscopic (ICD-10-PCS; CPT 45378; principal; 2023-03-16 11:00)
DX: Z12.11 Encounter for screening for malignant neoplasm of colon (principal); D12.5 Benign neoplasm of sigmoid colon; K63.89 Other specified diseases of intestine; K57.30 Diverticulosis of large intestine without perforation or abscess without bleeding; K64.8 Other hemorrhoids; Z86.010 Personal history of colon polyps; I10 Essential (primary) hypertension; E11.9 Type 2 diabetes mellitus without complications; F41.9 Anxiety disorder, unspecified; Z85.46 Personal history of malignant neoplasm of prostate; Z79.84 Long term (current) use of oral hypoglycemic drugs; Z79.899 Other long term (current) drug therapy
CPT/HCPCS: 45385; 82947; 88305; J2704

== ENCOUNTER → 2023-03-16 09:04 | Outpatient (BNV) | payer MEDICARE, MEDICAID, SELFPAY | PROVIDERS: PCP Internal Medicine; Visit Provider Internal Medicine Gastroenterology | DX: Z12.11 Encounter for screening for malignant neoplasm of colon (principal); Z86.010 Personal history of colon polyps; Z90.49 Acquired absence of other specified parts of digestive tract; D12.5 Benign neoplasm of sigmoid colon | CPT/HCPCS: 45385 ==

== ENCOUNTER 2023-04-08 14:25 | Outpatient (AMB) | payer MEDICARE, MEDICAID, SELFPAY ==
--- NOTE | 2023-04-08 14:35 | A.OFFVIS_ITS ---
Intake Vital Signs 04/08/23 14:38 BP 118/66 Blood Pressure Location Lt brachial Position Sitting Pulse 74 Intake Visit Reasons: colo results Intake Note: Patient follow up for Colonoscopy results. Patient cc: diarrhea and denies any other GI issues. Electronic Train Control Technician Required: No Accompanied by: Employee Allergies No Known Allergies [No Known Allergies*] Allergy (Verified 04/08/23 14:31) Medication List - Last Reconciled 04/08/23 by Ivett Chatterjee PA-C acetaminophen ER (Mapap Arthritis Pain) 650 mg PO Q8H PRN amlodipine 5 mg PO DAILY ammonium lactate 12% 1 appl topical BID blood sugar diagnostic (Contour Next Test Strips) As directed calcium carbonate 600 mg PO DAILY cholecalciferol (vitamin D3) 50 mcg (2 x 25 mcg (1,000 unit)) PO DAILY clotrimazole 1% 1 appl topical BID [countour NExT test strips check the blood sugar once a day As directed] fluvoxamine 100 mg PO BID hydroxyzine HCl 25 mg PO Q8H PRN lancets (BD Ultra-Fine II Lancets) As directed check the blood sugars once a day lisinopril 10 mg PO DAILY 90 days lorazepam (Ativan) 0.5 mg orally 30 minutes before doctor's appointment; 30 days metformin 1,000 mg PO BID 30 days mineral oil-isopropyl myristat (Hydrocerin lotion) 1 appl topical TID-QID PRN oxybutynin chloride ER 5 mg PO DAILY 90 days [id number] 5-10-100 mg/5 mL (Tussin CF (PE-DM-guaif)) 5 mL PO Q6H PRN risperidone (Risperdal) 1 mg PO DAILY risperidone (Risperdal) 2 mg with 1 mg Q 8 am daily; tamsulosin 0.4 mg PO QPM triamcinolone acetonide 0.5% 1 appl topical BID 1 week HPI HPI Comments History of Present Illness Details A 62-year-old male with personal history of colon polyps follows up after recent colonoscopy with polypectomy. He is accompanied by patient advocate. He has intermittent diarrhea- with urgency- lives in halfway with 4 other clients- no others w/ diarrhea Metformin-unable to quantify No abdominal pain, rectal bleeding fever chills PFSH Medical History (Updated 04/14/23 @ 10:59 by Ivett Chatterjee PA-C) Screening for colon cancer COVID-19 virus infection Anxiety Echolalia Tubular adenoma of colon Urinary incontinence Obesity (BMI 30-39.9) History of prostate cancer Hypertension Type 2 diabetes mellitus with hyperglycemia Surgical History Hx of colonoscopy History of hemicolectomy Family History Father No problems noted. Mother No problems noted. Social History Housing: Assisted Living Facility Alcohol intake: never Patient Tobacco Use Status: Never used Tobacco e-Cigarette/Vaping Use: Never Used Second Hand Smoke Exposure: No service: No Current occupational status: disabled Current occupational exposures/hazards: No Cognitive needs: Yes Hearing needs: No Vision needs: No Review of Systems Const All systems reviewed & are unremarkable except as noted in HPI and below Card Denies chest pain and Denies dyspnea Resp Denies dyspnea GI Denies abdominal pain, Denies hematochezia, Denies heartburn, Reports loose stools, Denies nausea and Denies vomiting Physical Exam Vital Signs: Last Vital Signs Pulse 74 04/08/23 14:38 BP 118/66 04/08/23 14:38 Const General: cooperative, healthy appearing, comfortable and no acute distress Resp Effort & Inspection: normal respiratory effort and able to speak in complete sentences Extrem General: Yes full ROM Psych Appearance: well kempt Attitude: cooperative Results Reviewed Results Reviewed: Findings: Terminal Ileum: Guerrero-terminal ileum appeared normal Transverse Colon: Normal Ileo-colic anastomosis at 85 cms. A 5-6 mm sessile polyp in the proximal TC - removed with a cold snare. Polyp was not retrieved Descending Colon: Normal Sigmoid Colon: A 4-5 mm sessile polyp - removed with a cold snare. Moderate diverticulosis Rectum: A 10-12 mm sessile polyp just inside the anal verge - seen on retroflexed exam. Polyp was removed with a cold snare. Residual polyp was ablated with a hot snare. Ano-rectum: Small internal hemorrhoids Colon preparation: Good after some irrigation Impression and Post Procedure Diagnosis: Colonoscopy Findings: Two small and one medium sized polyps removed - 1 polyp was not retrieved Moderate diverticulosis seen in the sigmoid colon Small hemorrhoids on retroflexed exam. Plan: Await pathology results Patient has an appointment on 03/30/23 in the GI Clinic with LEILA Patrick. Repeat Colonoscopy interval based on path results - in 3-5 years if polyps are adenomatous and due to a history of adenomatous colon polyps. Colon polyps and diverticulosis handouts were given in the discharge area Dictated By: Marilyn Riggins MD Signed By: <Electronically signed by Marilyn Riggins MD> 03/18/23 1814 DD/ 1222 TD/TT: 03/16/23 1222 Remote Sensing Surveyor: Assessment & Plan Assessment & Plan (1) Tubular adenoma of colon: Comment: Crescencio Hunt-advocate present 2010-Dr. Mehta-lap hemicolectomy for tubular adenoma with high-grade dysplasia February 2012 tubular adenoma 3 years February 2016 and 2019- Dr. Jhaveri-2022 Code(s): D12.6 - Benign neoplasm of colon, unspecified Plan: Repeat colonoscopy 5 years (2) Diverticulosis of colon: Code(s): K57.30 - Diverticulosis of large intestine without perforation or abscess without bleeding Plan: Maintain high-fiber diet Diverticulosis/diverticulitis er protocol (3) Diarrhea: Comment: Unable to quantify Code(s): R19.7 - Diarrhea, unspecified Plan: Monitor symptoms Fiber may bulk up stool Patient Instructions: Monitor symptoms/diarrhea/loose stool Repeat asymptomatic colonoscopy in 5 years years Maintain high-fiber diet ER protocol Encouraged to call with any questions or concerns Coding Level of Care Code Est Pt Level 3 (30291) Diagnoses Tubular adenoma of colon D12.6 Diverticulosis of colon K57.30 Diarrhea R19.7 Time Spent (min) 30 Comment Advocate present
[2023-04-08 14:38] VITALS: BP 118/66; PULSE 74
== END 2023-04-08 15:38 | disposition home or self-care (01) ==
PROVIDERS: PCP Internal Medicine; Visit Provider Physician Assistant
DX: D12.6 Benign neoplasm of colon, unspecified (principal); K57.30 Diverticulosis of large intestine without perforation or abscess without bleeding; R19.7 Diarrhea, unspecified
CPT/HCPCS: 99213

== ENCOUNTER → 2023-04-08 14:25 | Outpatient (BNVA) | payer MEDICARE, MEDICAID, SELFPAY | PROVIDERS: PCP Internal Medicine; Visit Provider Physician Assistant | DX: D12.6 Benign neoplasm of colon, unspecified (principal); K57.30 Diverticulosis of large intestine without perforation or abscess without bleeding; R19.7 Diarrhea, unspecified | CPT/HCPCS: 99212 ==

== ENCOUNTER 2023-06-08 06:47 | Outpatient (REF) | payer MEDICARE, MEDICAID, SELFPAY ==
[2023-06-08 07:00] LABS: MANUAL DIFF FLAG NO
[2023-06-08 07:10] LABS: Basophils Absolute Auto 0.1 X10*3/uL (0.0-0.2); Eosinophils Absolute Auto 0.2 X10*3/uL (0.0-0.4); Eosinophils Percent Auto 3.8 % (0-4); Hematocrit 41.9 % (42.0-52.0); Hemoglobin 14.2 g/dl (14.0-18.0); Lymphocytes Absolute Auto 2.3 X10*3/uL (1.2-4.9); Lymphocytes Percent Auto 47.1 % (20-40); Mean Corpuscular HGB Conc 33.9 g/dl (31.0-36.0); Mean Corpuscular Hemoglobin 29.6 pg (27.0-33.0); Mean Corpuscular Volume 87.5 fL (80.0-98.0); Mean Platelet Volume 10.5 fL (9.4-12.4); Monocytes Absolute Auto 0.4 X10*3/uL (0.1-1.2); Monocytes Percent Auto 8.5 % (2-11); Neutrophils Percent Auto 39.6 % (45-73); Platelet Count 188 X10*3/uL (160-400); Red Blood Count 4.79 X10*6/uL (4.60-5.80); Red Cell Distribution Width 12.7 % (11.0-16.0)
[2023-06-08 07:30] LABS: Estimated Average Glucose 128 mg/dL; Hemoglobin A1c % 6.1 % (<6.0)
[2023-06-08 07:38] LABS: Alanine Aminotransferase 29 U/L (0-40); Albumin Level 4.3 g/dL (3.5-5.0); Alkaline Phosphatase 86 U/L (39-117); Anion Gap 12 (12-20); Aspartate Amino Transferase 15 U/L (5-37); Bilirubin Total 0.5 mg/dL (0.0-1.0); Blood Urea Nitrogen 10 mg/dL (9-16); Calcium 9.5 mg/dL (8.4-10.2); Carbon Dioxide 28 mmol/L (22-29); Chloride 105 mmol/L (96-108); Cholesterol 105 mg/dL (<200); Estimated Glomerular Filt Rate > 60; Glucose Random 138 mg/dL (60-115); HDL Cholesterol 34 mg/dL (>40); LDL Cholesterol Calculated 58 mg/dL (<100); Potassium 3.8 mmol/L (3.3-5.1); Sodium 141 mmol/L (135-145); Total Protein 7.8 g/dL (6.5-8.0); Triglycerides 65 mg/dL (<150)
[2023-06-08 07:56] LABS: Free T4 (Free Thyroxine) 0.88 ng/dL (0.71-1.85)
[2023-06-08 07:59] LABS: Prostate Specific Antigen Scr < 0.10 ng/mL (<0.05-4.0)
[2023-06-08 08:08] LABS: Folate 9.6 ng/mL (> or = 4.0); Vitamin B12 533 pg/mL (200-900)
[2023-06-08 09:27] LABS: Creatinine Urine 244.03 mg/dL
[2023-06-08 09:29] LABS: Creatinine Urine 245.04 mg/dL; Microalbum/Creatinine Ratio Ur 23.2 ug/mg cr (<30)
== END 2023-06-08 06:48 | disposition home or self-care (01) ==
LOC: HO.LAB 06:47
PROVIDERS: Urology; PCP Internal Medicine; Visit Provider Internal Medicine
DX: E11.65 Type 2 diabetes mellitus with hyperglycemia (principal); E78.00 Pure hypercholesterolemia, unspecified; Z12.5 Encounter for screening for malignant neoplasm of prostate
CPT/HCPCS: 36415; 80053; 80061; 82043; 82570; 82607; 82746; 83036; 84153; 84439; 84443; 85025

== ENCOUNTER 2023-06-19 10:34 | Outpatient (AMB) | payer MEDICARE, MEDICAID, SELFPAY ==
--- NOTE | 2023-06-19 11:01 | MHC.OFFVIS ---
Intake Intake Visit Reasons: 1Y PSA(set) Confirmed Intake Note: Patient is Present for Follow Up PSA Urology Medication:Oxybutynin, Tamsulosin Antibiotic Allergies: None Blood Thinners: none Allergies No Known Allergies [No Known Allergies*] Allergy (Verified 06/19/23 11:03) Medication List - Last Reconciled 06/19/23 by Ronen Leonardo MD acetaminophen ER (Mapap Arthritis Pain) 650 mg PO Q8H PRN amlodipine 5 mg PO DAILY ammonium lactate 12% 1 appl topical BID blood sugar diagnostic (Contour Next Test Strips) As directed calcium carbonate 600 mg PO DAILY cholecalciferol (vitamin D3) 50 mcg (2 x 25 mcg (1,000 unit)) PO DAILY clotrimazole 1% 1 appl topical BID [countour NExT test strips check the blood sugar once a day As directed] fluvoxamine 100 mg PO BID hydroxyzine HCl 25 mg PO Q8H PRN lancets As directed check the blood sugars once a day lisinopril 10 mg PO DAILY 90 days lorazepam (Ativan) 0.5 mg orally 30 minutes before doctor's appointment; 30 days metformin 1,000 mg PO BID 30 days mineral oil-isopropyl myristat (Hydrocerin lotion) 1 appl topical TID-QID PRN oxybutynin chloride ER 5 mg PO DAILY 90 days [id number] 5-10-100 mg/5 mL (Tussin CF (PE-DM-guaif)) 5 mL PO Q6H PRN risperidone (Risperdal) 1 mg PO DAILY risperidone (Risperdal) 2 mg with 1 mg Q 8 am daily; tamsulosin 0.4 mg PO QPM triamcinolone acetonide 0.5% 1 appl topical BID 1 week HPI HPI Comments History of Present Illness Details Javed is a pleasant male. He is a patient of Dr. Rust. He is seen for the following urologic conditions - prostate cancer - lower urinary tract symptoms with overactive bladder Accompanied by case assistant. long-term. PSA stable Remains on oxybutynin with tamsulosin for urinary urgency Background of antipsychotic medications No accidents Continue yearly review Prostate cancer - initial brachytherapy performed 2013 Stable PSA PSA 04/01 <0.1, 11/01 <0.1, 06/06 <0.1 Does have associated urgency and frequency - responsive to tamsulosin on oxybutynin Continue PSA surveillance [facility] Medical History Screening for colon cancer COVID-19 virus infection Anxiety Echolalia Tubular adenoma of colon Urinary incontinence Obesity (BMI 30-39.9) History of prostate cancer Hypertension Type 2 diabetes mellitus with hyperglycemia Surgical History Hx of colonoscopy History of hemicolectomy Family History Father No problems noted. Mother No problems noted. Social History Housing: Assisted Living Facility Alcohol intake: never Patient Tobacco Use Status: Never used Tobacco e-Cigarette/Vaping Use: Never Used Second Hand Smoke Exposure: No service: No Current occupational status: disabled Current occupational exposures/hazards: No Cognitive needs: Yes Hearing needs: No Vision needs: No Review of Systems Const Denies chills and Denies fever(s) Card Reports no additional complaints and Denies syncope Resp Denies cough GI Denies abdominal pain and Denies heartburn Reports as per HPI and Denies change in libido Neuro Denies syncope Psych Denies change in libido Endo Denies change in libido Physical Exam Const General: cooperative, healthy appearing, comfortable and no acute distress Orientation/consciousness: patient oriented x3 HEENT Face and sinus: Yes normal facial exam Mouth: moist mucous membranes Neck Neck: Yes normal visual inspection, Yes full ROM and Yes trachea midline Chest Chest palpation & inspection: normal inspection of the chest Resp Effort & Inspection: normal respiratory effort, able to speak in complete sentences and no respiratory distress GI Inspection: Yes normal to inspection Back/Spine/Pelvis Cervical Spine: normal cervical lordosis Thoracic/Lumbar Spine: thoracic and lumbar spine normal to inspection Skin General skin exam: no rashes or lesions noted Neuro General: patient oriented x3, gait normal, tone normal and moves all extremities Extrem General: Yes normal to inspection and Yes capillary refill normal Assessment & Plan Assessment & Plan (1) Urinary frequency: Code(s): R35.0 - Frequency of micturition (2) Urinary urgency: Code(s): R39.15 - Urgency of urination Plan Twelve month follow-up Orders: Orders Prostate Specific Antigen Scr 06/08/23 E11.65 - Type 2 diabetes mellitus with hyperglycemia Medications: Refilled oxybutynin chloride ER 5 mg PO DAILY 90 tabs 1RF 90 days R35.0 - Frequency of micturition, R39.15 - Urgency of urination tamsulosin 0.4 mg PO QPM 90 caps 3RF R35.0 - Frequency of micturition Patient Instructions: Imaging studies, laboratory and physical exam results were discussed and reviewed in detail. No major barriers to patient understanding were identified. An opportunity to ask questions regarding the treatment plan was provided. All questions were answered. The patient expressed understanding and agreement with the above treatment plan. The patient is aware they should contact our office by phone for worsening of their current condition or the appearance of new urologic symptoms. Compliance is encouraged with any medications and followup testing that is ordered. It is a privilege to participate in the urologic care of your patient. If you have any questions or concerns regarding treatment for the above conditions, or other urologic issues, please do not hesitate to contact me. The office telephone contact is [phone]. This note is constructed using voice recognition software. While every effort has been made to ensure accuracy armature varnisher errors may have been included. Yours sincerely, Dr Ronen Leonardo MD, [place] [facility] - Urology Providers of Expert, Compassionate Care for the Genitourinary System Coding Level of Care Code Est Pt Level 4 (91940) Diagnoses Urinary frequency R35.0 Urinary urgency R39.15
== END 2023-06-19 11:21 | disposition home or self-care (01) ==
PROVIDERS: Visit Provider Urology
DX: R35.0 Frequency of micturition (principal); R39.15 Urgency of urination
CPT/HCPCS: 99213

== ENCOUNTER → 2023-06-19 10:34 | Outpatient (BNVA) | payer MEDICARE, MEDICAID, SELFPAY | PROVIDERS: Visit Provider Urology | DX: R35.0 Frequency of micturition (principal); R39.15 Urgency of urination | CPT/HCPCS: 99212 ==

== ENCOUNTER 2023-08-18 13:28 | Outpatient (AMB) | payer MEDICARE, MEDICAID, SELFPAY ==
--- NOTE | 2023-08-18 13:36 | AM.OFFVISMDC ---
Intake Vital Signs 08/18/23 13:37 08/18/23 14:07 Height 6 ft Weight 207 lb BMI 28.1 BP 152/92 H 132/80 Blood Pressure Location Lt brachial Lt brachial Position Sitting Sitting Pulse 80 Pulse Source Pulse Oximeter Pulse Oximetry (%) 97 Oxygen Delivery Method Room Air Intake Visit Reasons: SWV Allergies No Known Allergies [No Known Allergies*] Allergy (Verified 08/18/23 13:37) Medication List - Last Reconciled 08/18/23 by Mp uRst MD acetaminophen ER (Mapap Arthritis Pain) 650 mg PO Q8H PRN amlodipine 5 mg PO DAILY ammonium lactate 12% 1 appl topical BID blood sugar diagnostic (Contour Next Test Strips) As directed calcium carbonate 600 mg PO DAILY cholecalciferol (vitamin D3) 50 mcg (2 x 25 mcg (1,000 unit)) PO DAILY clotrimazole 1% 1 appl topical BID [countour NExT test strips check the blood sugar once a day As directed] [DIABETIC SHOES As directed] fluvoxamine 100 mg PO BID hydroxyzine HCl 25 mg PO Q8H PRN lancets As directed check the blood sugars once a day lisinopril 10 mg PO DAILY 90 days lorazepam (Ativan) 0.5 mg orally 30 minutes before doctor's appointment; 30 days metformin 1,000 mg PO BID 30 days mineral oil-isopropyl myristat (Hydrocerin lotion) 1 appl topical TID-QID PRN oxybutynin chloride ER 5 mg PO DAILY 90 days [id number]-[id number]-edvdkwauymg 5-10-100 mg/5 mL (Tussin CF (PE-DM-guaif)) 5 mL PO Q6H PRN risperidone (Risperdal) 1 mg PO DAILY risperidone (Risperdal) 2 mg with 1 mg Q 8 am daily; tamsulosin 0.4 mg PO QPM triamcinolone acetonide 0.5% 1 appl topical BID 1 week HPI SWV HPI Details 63-year-old overweight male with a mental and behavioral problem echolalia diabetes mellitus hypertension history of prostate cancer fatty liver coming in for annual well visit. Last seen in February 2023. Patient is colon test up-to-date March 2023. Follows up with urology for the lower urinary tract symptoms PSA stable on oxybutynin and tamsulosin [facility] [place] Medical History (Updated 08/18/23 @ 14:00 by Mp Rust MD) Urinary incontinence Skin tag Urinary urgency Urinary frequency Rhinitis Cough Contact dermatitis and other eczema due to other specified agent Diverticulosis of colon Diarrhea Screening for colon cancer COVID-19 virus infection Anxiety Echolalia Tubular adenoma of colon Obesity (BMI 30-39.9) History of prostate cancer Hypertension Type 2 diabetes mellitus with hyperglycemia Surgical History Hx of colonoscopy History of hemicolectomy Family History Father No problems noted. Mother No problems noted. Social History Housing: Assisted Living Facility Alcohol intake: never Patient Tobacco Use Status: Never used Tobacco e-Cigarette/Vaping Use: Never Used Second Hand Smoke Exposure: No service: No Current occupational status: disabled Current occupational exposures/hazards: No Cognitive needs: Yes Hearing needs: No Vision needs: No Questionnaire Medicare Wellness Checkup [age] What gender do you identify with?: male During the past 4 weeks, how much have you been bothered by emotional problems such as feeling anxious, depressed, irritable, sad or downhearted, and blue?: not at all During the past 4 weeks, has your physical & emotional health limited your social activities with family, friends, neighbors, or groups?: not at all During the past 4 weeks, how much bodily pain have you generally had?: no pain During the past 4 weeks, was someone available to help you if you needed & wanted help?: yes, as much as I wanted During the past 4 weeks, what was the hardest physical activity you could do for at least 2 minutes?: moderate Can you get to places out of walking distance without help? (For eg., can you travel alone on buses, taxis or drive your car?): No Can you go shopping for groceries or clothes without someone's help?: No Can you prepare your own meals?: No Can you do your housework without help?: No Because of any health problems, do you need the help of another person with your personal care needs such as eating, bathing, dressing or getting around the house?: No Can you handle your own money without help?: No During the past 4 weeks, how would you rate your health in general?: good During the past 4 weeks how have things been going for you?: pretty well Are you having difficulties driving your car?: not applicable, I don't use a car Do you always fasten your seat belt when you are in a car?: yes, usually During past 4 weeks, have you been bothered by the following: never: Falling or dizzy when standing up, Sexual problems?, Trouble eating well?, Teeth or denture problems? and Problems using the telephone? and sometimes: Tiredness or fatigue? Have you fallen 2 or more times in the past year?: No Are you afraid of falling?: No Are you a smoker?: no During the past 4 weeks, how many drinks of wine, beer, or other alcoholic beverages did you have?: no alcohol at all Do you exercise for about 20 minutes 3 or more times a week?: yes, some of the time Have you been given information to help with the following?: yes: Hazards in your house that might hurt you? and yes: Keeping track of your medications? How often do you have trouble taking medicines the way you have been told to take them?: I always take medicine as prescribed How confident are you that you can control & manage most of your health problems?: very confident What is your race?: Black or PHQ-9 Over the last 2 weeks, how often have you been bothered by any of the following problems? 1. Little interest or pleasure in doing things: more than half the days 2. Feeling down, depressed, or hopeless: not at all 3. Trouble falling or staying asleep, or sleeping too much: not at all 4. Feeling tired or having little energy: nearly every day 5. Poor appetite or overeating: not at all 6. Feeling bad about yourself - or that you are a failure or have let yourself or your family down: not at all 7. Trouble concentrating on things, such as reading the newspaper or watching television: not at all 8. Moving or speaking so slowly that other people could have noticed. Or the opposite - being so fidgety or restless that you have been moving around a lot more than usual: not at all 9. Thoughts that you would be better off or of hurting yourself in some way: not at all Total score: 5 Depression Screening Interpretation: Positive Depression Screening Done: Yes 14313 - PHQ-9 Billing: Yes Source: Developed by Drs. Mann Jarvis, Christian Luna and colleagues, with an educational july from [employer]. Thrive Questionnaire Date Thrive assessed: 08/18/23 I am a: Parent/Caregiver What is your living situation today?: I have a steady place to live Within the past 12 months, did the food you bought not last and you didn't have the money to get more?: Never true Within the past 12 months, did you worry whether your food would run out before you got money to buy more?: Never true Do you have trouble paying for medicines?: No Do you have trouble getting transportation to medical appointments?: No Do you have trouble paying your heating and electricity bill?: No Do you have trouble taking care of your child, family member or friend?: No Do you have trouble with day-to-day activities such as bathing, preparing meals, shopping, managing finances, etc.?: No Are you currently unemployed and looking for a job?: No Are you interested in more education?: No Currently or been in a relationship where the following occur: no concerns reported THRIVE Score: 0 DEVIN-7 AMB Questionnaire DEVIN-7 Date DEVIN - 7 assessed: 08/18/23 Feeling nervous, anxious, or on edge: 0 = Not at all Not being able to stop or control worryin = Not at all Worrying too much about different things: 0 = Not at all Trouble relaxin = Not at all Being so restless that it is hard to sit still: 0 = Not at all Becoming easily annoyed or irritable: 0 = Not at all Feeling afraid as if something awful might happen: 0 = Not at all Total DEVIN-7 score (0-4 normal; 5-9 mild; 10-14 moderate; 15-21 severe): 0 Source: Developed by Drs. Mann Jarvis, Christian Luna and colleagues, with an educational july from [employer]. Review of Systems Const Denies poor appetite and Denies weakness Eyes Denies no additional complaints ENT Reports Normal hearing present, Denies dizziness, Denies nasal congestion, Denies tinnitus and Denies sore throat Card Denies chest pain, Denies syncope, Denies rapid heart rate and Denies dyspnea Resp Denies cough and Denies dyspnea GI Denies change in stool character, Reports constipation, Denies diarrhea, Denies nausea and Denies vomiting Denies dysuria and Denies urinary frequency Neuro Reports Normal hearing present, Denies confusion, Denies dizziness, Denies syncope and Denies weakness Psych Denies confusion Physical Exam Vital Signs: Last Vital Signs Pulse 80 08/18/23 13:37 BP 132/80 08/18/23 14:07 Pulse Ox 97 08/18/23 13:37 Oxygen Delivery Method Room Air 08/18/23 13:37 BMI result Body Mass Index 28.1 Const General: No confusion Orientation/consciousness: No confusion HEENT Head: Yes normocephalic Ears: external ears normal and TM's normal bilaterally Face and sinus: Yes normal facial exam Mouth: moist mucous membranes Throat: Yes tonsils normal Eyes Conjunctivae: conjunctivae normal Pupils: Equal, round and reactive pupils present and Pupil accommodation reflex normal Direct Ophthalmoscopy: normal light reflex Neck Neck: No lymphadenopathy Thyroid: Thyroid normal Chest Chest palpation & inspection: normal inspection of the chest Resp Effort & Inspection: normal respiratory effort and no audible wheezes Auscultation: clear to auscultation bilaterally, no crackles, no wheezes and lung sounds not diminished Cardio Rate: regular rate Rhythm: regular rhythm Peripheral pulses: radial pulses present and dorsalis pedis present GI Other: colon test 03/2023 Palpation (GI): no masses Auscultation: normal bowel sounds and normoactive bowel sounds Rectal Exam - Male: Yes deferred Other: mild bulging inguinal area Skin General skin exam: no rashes or lesions noted Rashes: no rashes Neuro General: No confusion Cranial nerves: Yes Equal, round and reactive pupils present and Yes Normal hearing present Cognition (Neuro): normal cognition Gait exam (Neuro): Normal gait present Motor exam (neuro): 5/5 motor strength present throughout Deep tendon reflexes (DTR's): Right brachioradialis reflex intensity grade: 2+, Left brachioradialis reflex intensity grade: 2+, Right patellar reflex intensity grade: 2+ and Left patellar reflex intensity grade: 2+ Extrem General: No edema Results AMB Hemoglobin A1c AMB Hemoglobin A1c 6.7 % Last Edit by Jossie Butt CMA on 08/18/23 13:59 Immunizations pneumoc 20-trisha conj-dip cr(PF) 0.5 mL IM syringe Performing Provider: Mp Rust MD [facility] Administered by: VINCENT Page on 08/18/23 14:34 Dose Route Admin Location Dispensed Lot Number Expiration Date NDC Boring Machine Set Up Operator Jig 0.5 mL IM Left Deltoid 0.5 mL [id number] 08/11/24 [id number] Player [email or web address] VIS Given Date VIS Provided VIS Publication Date 08/18/23 Single Vaccine 21 Eligibility Eligibility Date Funding Source Not [facility] Eligible 08/18/23 Private Results Reviewed Results Reviewed: Laboratory Last Values Hgb A1c (Clinic) 6.7 % (4.0-6.0) H 08/18/23 13:40 Assessment & Plan Assessment & Plan (1) Medicare annual wellness visit, subsequent: Code(s): Z00.00 - Encounter for general adult medical examination without abnormal findings Plan: Keep well hydrated, eat healthy keep active and have adequate sleep. (2) Tubular adenoma of colon: Comment: Crescencio Hunt-advocate present 2010-Dr. Mehta-lap hemicolectomy for tubular adenoma with high-grade dysplasia February 2012 tubular adenoma 3 years February 2016 and 2019- Dr. Jhaveri-2022 Code(s): D12.6 - Benign neoplasm of colon, unspecified Plan: Patient is being followed up by Gastroenterology (3) Overweight (BMI 25.0-29.9): Code(s): E66.3 - Overweight Plan: Diet and exercise (4) Prostate cancer: Comment: 2013 Maria R seeds Code(s): C61 - Malignant neoplasm of prostate Plan: Patient being followed up by Urology on oxybutynin and tamsulosin (5) Type 2 diabetes mellitus with hyperglycemia: Comment: Dr. Sanchez Code(s): E11.65 - Type 2 diabetes mellitus with hyperglycemia Qualifiers: Diabetes mellitus jail insulin use: without jail use Qualified Code(s): E11.65 - Type 2 diabetes mellitus with hyperglycemia Plan: Decrease the amount of carbohydrate intake, pasta, bread, rice and potatoes are all sugar and that is aside from all the sweet stuff, remember that fruits are good but they are Sweet also. Hemoglobin A1c goal of less than 7.0. On metformin a 1000 mg twice a day (6) Hypertension: Code(s): I10 - Essential (primary) hypertension Qualifiers: Hypertension type: essential hypertension Qualified Code(s): I10 - Essential (primary) hypertension Plan: Continue with blood pressure medication. Decrease salt intake and exercise takes amlodipine 5 mg once a day lisinopril 10 mg once a day (7) Echolalia: Code(s): R48.8 - Other symbolic dysfunctions Plan: Continue to follow-up with psychiatry Orders: Orders Pneumococcal 20 Immunization Today Z23 - Encounter for immunization AMB Hemoglobin A1c Today Z13.9 - Encounter for screening, unspecified Medications: New pneumoc 20-trisha conj-dip cr(PF) 0.5 mL IM ONCE 0.5 mL 0RF Z23 - Encounter for immunization [DIABETIC SHOES] As directed 1 ea 0RF E11.65 - Type 2 diabetes mellitus with hyperglycemia Quality Reporting (2019) Depression/Bipolar (159/160/161/177) PHQ-9: Total score: 5 Coding Level of Care Code Medicare Subsequent (G0439) Diagnoses Medicare annual wellness visit, subsequent Z00.00 Tubular adenoma of colon D12.6 Overweight (BMI 25.0-29.9) E66.3 Prostate cancer C61 Type 2 diabetes mellitus with hyperglycemia, without long-term current use of insulin E11.65 Diabetes mellitus jail insulin use: without bed bug exterminator use Essential hypertension I10 Hypertension type: essential hypertension Echolalia R48.8
[2023-08-18 13:37] VITALS: BP 152/92; PULSE 80; O2SAT 97; BMI 28.1
[2023-08-18 14:07] VITALS: BP 132/80
== END 2023-08-18 14:38 | disposition home or self-care (01) ==
PROVIDERS: PCP Internal Medicine; Visit Provider Internal Medicine
DX: Z23 Encounter for immunization (principal); Z00.00 Encounter for general adult medical examination without abnormal findings; D12.6 Benign neoplasm of colon, unspecified; C61 Malignant neoplasm of prostate; E11.65 Type 2 diabetes mellitus with hyperglycemia; I10 Essential (primary) hypertension; R48.8 Other symbolic dysfunctions
CPT/HCPCS: 83036; 90471; 90677; G0439

== ENCOUNTER 2023-11-30 09:46 | Emergency (ER) | payer MEDICARE, MEDICAID, SELFPAY ==
[2023-11-30] VITALS (13 sets, daily range): BP systolic 86–138; BP diastolic 50–90; PULSE 53–76; RESP 13–20; TEMP 35.8–36; O2SAT 95–99; BMI 27.8
--- NOTE | 2023-11-30 10:03 | PC.NURSE ---
Pt presents today from senior care setting. Per EMS and confirmed by senior care staff, Pt took the morning medications of another senior care member today in addition to his own. Per EMS, the medications taken were: Metformin 750 mg Sertraline 150mg Guafacine 4mg control Chlorpromazine 100mg Senior Living staff present at bedside, reporting Pt did eat breakfast today. Pt is also on 1000mg of Metformin. VSS, Pt is non-verbal at baseline. Facial asymmetry noted, per EMS and Senior Living staff this a baseline.
[2023-11-30 10:14] LABS: Glucose, Whole Blood 119 mg/dL (60-115)
--- NOTE | 2023-11-30 10:21 | ECG_ITS ---
Test Reason : ACCIDENTAL INGESTION Blood Pressure : / mmHG Vent. Rate : 069 BPM Atrial Rate : 069 BPM P-R Int : 136 ms QRS Dur : 086 ms QT Int : 402 ms P-R-T Axes : 050 037 016 degrees QTc Int : 430 ms Normal sinus rhythm Nonspecific T wave abnormality Abnormal ECG When compared with ECG of 03-JAN-2013 08:39, No significant change was found Referred By: Ashleigh Garcia Electronically Signed By:SAHIL ORNELAS
--- NOTE | 2023-11-30 10:21 | ED_ITS ---
HPI - General Adult General Chief complaint: General Medical Stated complaint: TOOK ANOTHER GRP HOME RES MEDS PER EMS Time Seen by Provider: 11/30/23 10:21 Source: patient, EMS, RN notes reviewed and other (custodial staff) Mode of arrival: EMS Limitations: altered mental status History of Present Illness ED Provider: margie HPI narrative: Patient is a 63-year-old male with history of autism, anxiety and depression, DM, OCD, echolalia, intermittent explosive disorder under guardianship presenting to the emergency department via EMS with custodial staff who reports that evidently ingested medications intended for an custodial member this morning. [facility] staff states that he turned around to get the other client water to take the medications when the patient walked by and grab the medications and took them. Patient denies any current complaints but appears drowsy. Patient reportedly ingested metformin 750mg, sertraline 150mg, guanfacine 4mg, an oral contraceptive, and chlorpromazine 100mg. MD complaint: accidental ingestion Onset (ago): minute(s) Associated symptoms: denies other symptoms Treatments prior to arrival: none Related Data Home Medications ?Medication ?Instructions ?Recorded ?Confirmed fluvoxamine 100 mg tablet 100 mg PO BID 03/19/20 08/18/23 mineral oil-isopropyl myristat 1 appl topical TID-QID PRN Itching 03/19/20 08/18/23 lotion (Hydrocerin lotion) risperidone 1 mg tablet (Risperdal) 1 mg PO DAILY 03/19/20 08/18/23 risperidone 2 mg tablet (Risperdal) See Rx Instructions .Route DAILY 03/19/20 08/18/23 Previous Rx's ?Medication ?Instructions ?Recorded countour NExT test strips check #100 ea 01/08/21 the blood sugar once a day clotrimazole 1 % topical cream 1 appl topical BID #90 grams 12/03/21 [id number] 5 5 ml PO Q6H PRN for cough #237 mL 06/10/22 mg-10 mg-100 mg/5 mL oral liquid (Tussin CF (PE-DM-guaif)) triamcinolone acetonide 0.5 % 1 appl topical BID 1 week #15 grams 11/14/22 topical cream acetaminophen 650 mg 650 mg PO Q8H PRN for fever #40 12/22/22 tablet,extended release (Mapap tabs Arthritis Pain) ammonium lactate 12 % topical cream 1 appl topical BID #280 grams 01/12/23 blood sugar diagnostic (Contour #50 ea 01/12/23 Next Test Strips) cholecalciferol (vitamin D3) 25 50 mcg (2 x 25 mcg (1,000 unit)) 02/15/23 mcg (1,000 unit) tablet PO DAILY #180 tabs calcium carbonate 600 mg PO DAILY #90 tabs 03/26/23 lorazepam 0.5 mg tablet (Ativan) 0.5 mg PO .COMPLEX 30 days #7 tabs 04/21/23 lancets 30 gauge #100 ea 04/22/23 hydroxyzine HCl 25 mg tablet 25 mg PO Q8H PRN itching #30 tabs 05/20/23 oxybutynin chloride 5 mg 5 mg PO DAILY 90 days #90 tabs 06/19/23 tablet,extended release 24 hr tamsulosin 0.4 mg capsule 0.4 mg PO QPM #90 caps 06/19/23 DIABETIC SHOES #1 ea 08/18/23 lisinopril 10 mg tablet 10 mg PO DAILY 90 days #90 tabs 09/03/23 amlodipine 5 mg tablet 5 mg PO DAILY #90 tabs 10/14/23 metformin 1,000 mg tablet 1,000 mg PO BID 30 days #60 tabs 10/30/23 Allergies Allergy/AdvReac Type Severity Reaction Status Date / Time No Known Allergies Allergy Verified 11/30/23 09:55 [No Known Allergies*] Review of Systems 2 Review of Systems: As per HPI. Yes all other systems are reviewed and are negative [facility] Past Medical History Medical History (Updated 11/30/23 @ 14:10 by Ashleigh Garcia NP) Urinary incontinence Skin tag Urinary urgency Urinary frequency Rhinitis Cough Contact dermatitis and other eczema due to other specified agent Diverticulosis of colon Diarrhea Screening for colon cancer COVID-19 virus infection Anxiety Echolalia Tubular adenoma of colon Obesity (BMI 30-39.9) History of prostate cancer Hypertension Type 2 diabetes mellitus with hyperglycemia Surgical History Hx of colonoscopy History of hemicolectomy Family History Family History Father No problems noted. Mother No problems noted. Social History Social History Housing: Assisted Living Facility Alcohol intake: never Patient Tobacco Use Status: Never used Tobacco Smoked in Last 30 Days: No e-Cigarette/Vaping Use: Never Used Second Hand Smoke Exposure: No Use of substances other than those prescribed or required for medical reasons: No Advance Directives: Yes Advance Directives on File: Yes Advance Directives Date on File: 03/17/23 Do you have a plan to hurt others: No Plan service: No Current occupational status: disabled Current occupational exposures/hazards: No Cognitive needs: Yes Hearing needs: No Vision needs: No Physical Exam ED Vital Signs: Vital Signs - 24 hr 11/30/23 09:52 11/30/23 10:00 11/30/23 11:31 Temperature 96.8 F 96.8 F Pulse Rate 68 68 67 Respiratory Rate 16 16 14 Blood Pressure 123/75 123/75 136/74 Pulse Oximetry 97 97 95 Oxygen Delivery Method Room Air Room Air Room Air 11/30/23 12:00 11/30/23 12:30 11/30/23 13:00 Temperature Pulse Rate 76 73 71 Respiratory Rate 18 14 16 Blood Pressure 138/85 126/83 128/80 Pulse Oximetry 96 95 96 Oxygen Delivery Method Room Air Room Air Room Air 11/30/23 13:30 11/30/23 14:12 Temperature Pulse Rate 62 53 Respiratory Rate 14 13 Blood Pressure 117/75 86/50 L Pulse Oximetry 95 97 Oxygen Delivery Method Room Air Room Air BMI result Body Mass Index 27.8 Course Reevaluation(s) Reevaluation #1: Sarah mccann PA-C I have accepted care of the patient had signed out pending reassessment. Patient mistakenly took another patient's medication, poison control was consulted. The patient has been having serial EKGs and QT lower POC is, there have been no abnormality. The plan is to discharge the patient at 3:45 pm Time: 02:00 Reevaluation #2: Patient had a vasovagal episode while using the toilet, his heart rate and blood pressure rapidly normalized, he received 1 L of normal saline, there have been no new arrhythmias documented on the EKG his QT is 413, his point of cares are stable last was 143 Time: 15:50 Medications Administered Discontinued Medications Generic Name Dose Route Start Last Admin Trade Name Bao PRN Reason Stop Dose Admin Sodium Chloride 1,000 mls @ 999 mls/hr 11/30/23 14:30 11/30/23 14:30 Ns IV 11/30/23 15:30 999 mls/hr .Q1H1M GOLDIE Administration Medical Decision Making Medical Decision Making [facility] Narrative: Patient is a 63-year-old male with history of autism, anxiety and depression, DM, OCD, echolalia, intermittent explosive disorder under guardianship presenting to the emergency department via EMS with custodial staff who reports that evidently ingested medications intended for an custodial member this morning. On exam patient is awake, A+Ox3, VS WNL, afebrile, normal neurological exam without focal deficits, physical exam findings as above. Given reported symptoms and physical exam findings, initial differential includes cardiac arrhythmia, hypoglycemia, other electrolyte abnormality. Initial EKG shows normal sinus rhythm, unchanged from prior. Labs unremarkable, glucose within normal limits. Urine drug screen negative, ASA and Tylenol negative, ethanol negative. Case discussed with Poison Control by MAREN Barrera, they are recommending Q2hour EKGs, monitor patient for 6-8 hours, then discharge back to custodial if no significant changes. Hourly POC glucose levels ordered as well. Patient signed out to LEILA Franklin pending completion of evaluation/observation. Differential Diagnosis Differential Diagnoses: The differential diagnosis associated with the presentation includes As per [facility] Admission/Observation Consideration of admission/observation: Escalation of care including admission/observation considered Patient would have been admitted to the hospital had their work up had any findings where hospital admission was appropriate and their clinical presentation warranted hospital admission. Consult Healthcare Provider Poison Control Lab Data [facility] Lab Attestation statement: I reviewed the patient's lab results. As per [facility] 11/30/23 11:22 11/30/23 11:22 Labs: Lab Results 11/30/23 11/30/23 11/30/23 Range/Units 10:10 11:22 11:27 WBC 5.8 (4.8-10.8) X10*3/uL RBC 4.68 (4.60-5.80) X10*6/uL Hgb 14.0 (14.0-18.0) g/dl Hct 41.7 L (42.0-52.0) % MCV 89.1 (80.0-98.0) fL MCH 29.9 (27.0-33.0) pg MCHC 33.6 (31.0-36.0) g/dl RDW 12.7 (11.0-16.0) % Plt Count 192 (160-400) X10*3/uL MPV 10.7 (9.4-12.4) fL Immature Gran % (Auto) 0.2 (0.0-0.4) % Neut % (Auto) 50.0 (45-73) % Lymph % (Auto) 34.9 (20-40) % Gibson % (Auto) 11.8 H (2-11) % Eos % (Auto) 2.2 (0-4) % Baso % (Auto) 0.9 (0-2) % Lymph # (Auto) 2.0 (1.2-4.9) X10*3/uL Gibson # (Auto) 0.7 (0.1-1.2) X10*3/uL Eos # (Auto) 0.1 (0.0-0.4) X10*3/uL Baso # (Auto) 0.1 (0.0-0.2) X10*3/uL Abs Immat Gran (auto) 0.01 (0.00-0.03) X10*3/uL Absolute Neuts (auto) 2.9 (2.0-8.3) x10*3/uL Absolute Nucleated RBC 0.000 (0.0-0.012) X10*3/uL Nucleated RBC % (auto) 0.0 (0.0-0.2) /100WBC Sodium 140 (135-145) mmol/L Potassium 3.8 (3.3-5.1) mmol/L Chloride 104 (96-108) mmol/L Carbon Dioxide 26 (22-29) mmol/L Anion Gap 14 (12-20) BUN 10 (9-16) mg/dL Creatinine 0.87 (0.5-1.4) mg/dL Estim Creat Clear Calc 97.4 Estimated GFR > 60 POC Glucose 119 H 112 (60-115) mg/dL Random Glucose 113 (60-115) mg/dL Calcium 10.6 H D (8.4-10.2) mg/dL Magnesium 2.2 (1.6-2.6) mg/dL Total Bilirubin 0.4 (0.0-1.0) mg/dL AST 15 (5-37) U/L ALT 28 (0-40) U/L Alkaline Phosphatase 96 (39-117) U/L Total Protein 8.1 H (6.5-8.0) g/dL Albumin 4.4 (3.5-5.0) g/dL Urine Color Urine Appearance Urine pH (5.0-9.0) Ur Specific Wesley (1.005-1.025) Urine Protein (Neg-Trace) mg/dL Urine Glucose (UA) (Negative) mg/dL Urine Ketones (Negative) mg/dL Urine Blood (Negative) Urine Nitrite (Negative) Ur Leukocyte Esterase (Negative) Salicylates < 5.0 L (15-30) mg/dL Urine Opiates Screen (Not Detect) Ur Buprenorphine Scrn (Not Detect) ng/mL Ur Oxycodone Screen (Not Detect) ng/mL Urine Methadone Screen (Not Detect) ng/mL Urine Fentanyl Screen (Not Detect) Acetaminophen < 3 (<30) mcg/mL Ur Barbiturates Screen (Not Detect) Ur Phencyclidine Scrn (Not Detect) Ur Amphetamines Screen (Not Detect) U Benzodiazepines Scrn (Not Detect) Urine Cocaine Screen (Not Detect) U Marijuana (THC) Screen (Not Detect) Ethyl Alcohol < 10 mg/dL 11/30/23 11/30/23 11/30/23 Range/Units 12:15 12:27 13:11 WBC (4.8-10.8) X10*3/uL RBC (4.60-5.80) X10*6/uL Hgb (14.0-18.0) g/dl Hct (42.0-52.0) % MCV (80.0-98.0) fL MCH (27.0-33.0) pg MCHC (31.0-36.0) g/dl RDW (11.0-16.0) % Plt Count (160-400) X10*3/uL MPV (9.4-12.4) fL Immature Gran % (Auto) (0.0-0.4) % Neut % (Auto) (45-73) % Lymph % (Auto) (20-40) % Gibson % (Auto) (2-11) % Eos % (Auto) (0-4) % Baso % (Auto) (0-2) % Lymph # (Auto) (1.2-4.9) X10*3/uL Gibson # (Auto) (0.1-1.2) X10*3/uL Eos # (Auto) (0.0-0.4) X10*3/uL Baso # (Auto) (0.0-0.2) X10*3/uL Abs Immat Gran (auto) (0.00-0.03) X10*3/uL Absolute Neuts (auto) (2.0-8.3) x10*3/uL Absolute Nucleated RBC (0.0-0.012) X10*3/uL Nucleated RBC % (auto) (0.0-0.2) /100WBC Sodium (135-145) mmol/L Potassium (3.3-5.1) mmol/L Chloride (96-108) mmol/L Carbon Dioxide (22-29) mmol/L Anion Gap (12-20) BUN (9-16) mg/dL Creatinine (0.5-1.4) mg/dL Estim Creat Clear Calc Estimated GFR POC Glucose 117 H 117 H (60-115) mg/dL Random Glucose (60-115) mg/dL Calcium (8.4-10.2) mg/dL Magnesium (1.6-2.6) mg/dL Total Bilirubin (0.0-1.0) mg/dL AST (5-37) U/L ALT (0-40) U/L Alkaline Phosphatase (39-117) U/L Total Protein (6.5-8.0) g/dL Albumin (3.5-5.0) g/dL Urine Color Yellow Urine Appearance Clear Urine pH 7.0 (5.0-9.0) Ur Specific Wesley <= 1.005 (1.005-1.025) Urine Protein Negative (Neg-Trace) mg/dL Urine Glucose (UA) Negative (Negative) mg/dL Urine Ketones Negative (Negative) mg/dL Urine Blood Negative (Negative) Urine Nitrite Negative (Negative) Ur Leukocyte Esterase Negative (Negative) Salicylates (15-30) mg/dL Urine Opiates Screen Not Detected (Not Detect) Ur Buprenorphine Scrn Not Detected (Not Detect) ng/mL Ur Oxycodone Screen Not Detected (Not Detect) ng/mL Urine Methadone Screen Not Detected (Not Detect) ng/mL Urine Fentanyl Screen Not Detected (Not Detect) Acetaminophen (<30) mcg/mL Ur Barbiturates Screen Not Detected (Not Detect) Ur Phencyclidine Scrn Not Detected (Not Detect) Ur Amphetamines Screen Not Detected (Not Detect) U Benzodiazepines Scrn Not Detected (Not Detect) Urine Cocaine Screen Not Detected (Not Detect) U Marijuana (THC) Screen Not Detected (Not Detect) Ethyl Alcohol mg/dL 11/30/23 11/30/23 Range/Units 14:10 15:18 WBC (4.8-10.8) X10*3/uL RBC (4.60-5.80) X10*6/uL Hgb (14.0-18.0) g/dl Hct (42.0-52.0) % MCV (80.0-98.0) fL MCH (27.0-33.0) pg MCHC (31.0-36.0) g/dl RDW (11.0-16.0) % Plt Count (160-400) X10*3/uL MPV (9.4-12.4) fL Immature Gran % (Auto) (0.0-0.4) % Neut % (Auto) (45-73) % Lymph % (Auto) (20-40) % Gibson % (Auto) (2-11) % Eos % (Auto) (0-4) % Baso % (Auto) (0-2) % Lymph # (Auto) (1.2-4.9) X10*3/uL Gibson # (Auto) (0.1-1.2) X10*3/uL Eos # (Auto) (0.0-0.4) X10*3/uL Baso # (Auto) (0.0-0.2) X10*3/uL Abs Immat Gran (auto) (0.00-0.03) X10*3/uL Absolute Neuts (auto) (2.0-8.3) x10*3/uL Absolute Nucleated RBC (0.0-0.012) X10*3/uL Nucleated RBC % (auto) (0.0-0.2) /100WBC Sodium (135-145) mmol/L Potassium (3.3-5.1) mmol/L Chloride (96-108) mmol/L Carbon Dioxide (22-29) mmol/L Anion Gap (12-20) BUN (9-16) mg/dL Creatinine (0.5-1.4) mg/dL Estim Creat Clear Calc Estimated GFR POC Glucose 142 H 129 H (60-115) mg/dL Random Glucose (60-115) mg/dL Calcium (8.4-10.2) mg/dL Magnesium (1.6-2.6) mg/dL Total Bilirubin (0.0-1.0) mg/dL AST (5-37) U/L ALT (0-40) U/L Alkaline Phosphatase (39-117) U/L Total Protein (6.5-8.0) g/dL Albumin (3.5-5.0) g/dL Urine Color Urine Appearance Urine pH (5.0-9.0) Ur Specific Wesley (1.005-1.025) Urine Protein (Neg-Trace) mg/dL Urine Glucose (UA) (Negative) mg/dL Urine Ketones (Negative) mg/dL Urine Blood (Negative) Urine Nitrite (Negative) Ur Leukocyte Esterase (Negative) Salicylates (15-30) mg/dL Urine Opiates Screen (Not Detect) Ur Buprenorphine Scrn (Not Detect) ng/mL Ur Oxycodone Screen (Not Detect) ng/mL Urine Methadone Screen (Not Detect) ng/mL Urine Fentanyl Screen (Not Detect) Acetaminophen (<30) mcg/mL Ur Barbiturates Screen (Not Detect) Ur Phencyclidine Scrn (Not Detect) Ur Amphetamines Screen (Not Detect) U Benzodiazepines Scrn (Not Detect) Urine Cocaine Screen (Not Detect) U Marijuana (THC) Screen (Not Detect) Ethyl Alcohol mg/dL Independent Historian Clinical information obtained from an independent historian. History obtained from or confirmed by: Other (custodial staff) External Record Review External record reviewed: Inpatient record, Office record and Outpatient record Critical Care Time Critical Care Time Critical Care Time: Yes Total Critical Care Time: 42 Attestation: I have personally provided critical care time exclusive of time spent on separately billable procedures. Time includes review of lab data, radiology results, discussion with consultants, and monitoring for potential decompensation. Intervention performed as documented. Discharge Plan Discharge Clinical Impression: Accidental drug ingestion Patient Disposition: Home, Self-Care Additional Instructions: You have been monitored in the emergency department for an extended period of time, to make sure you did not have, an adverse reaction to the medication that you consumed. All of your labs are normal, there have been no concerning changes on your EKG. Follow up with your primary care provider as needed Prescriptions: No Action (DME) countour NExT test strips check the blood sugar once a day See Rx Instructions .Route .MEDSUPPLY Qty: 100 3RF Rx Instructions: As directed clotrimazole 1 % cream 1 appl topical BID Qty: 90 1RF acetaminophen [Mapap Arthritis Pain] 650 mg tablet extended release 650 mg PO Q8H PRN (Reason: for fever) Qty: 40 11RF (DME) Contour Next Test Strips Strip See Rx Instructions Not Applicable DAILY Qty: 50 11RF Rx Instructions: As directed ammonium lactate 12 % cream 1 appl topical BID Qty: 280 3RF cholecalciferol (vitamin D3) 25 mcg (1,000 unit) tablet 50 mcg PO DAILY Qty: 180 3RF calcium carbonate 600 mg calcium (1,500 mg) tablet 600 mg PO DAILY Qty: 90 3RF lorazepam [Ativan] 0.5 mg tablet 0.5 mg PO .COMPLEX 30 Days Qty: 7 5RF Rx Instructions: 0.5 mg orally 30 minutes before doctor's appointment; (DME) lancets 30 gauge misc See Rx Instructions .ROUTE .MEDSUPPLY Qty: 100 3RF Rx Instructions: As directed check the blood sugars once a day hydroxyzine HCl 25 mg tablet 25 mg PO Q8H PRN (Reason: itching) Qty: 30 5RF lisinopril 10 mg tablet 10 mg PO DAILY 90 Days Qty: 90 11RF amlodipine 5 mg tablet 5 mg PO DAILY Qty: 90 11RF metformin 1,000 mg tablet 1,000 mg PO BID 30 Days Qty: 60 3RF Rx Instructions: Take twice daily before meal Hydrocerin Lotion 1 appl topical TID-QID PRN (Reason: Itching) fluvoxamine 100 mg tablet 100 mg PO BID risperidone [Risperdal] 1 mg tablet 1 mg PO DAILY risperidone [Risperdal] 2 mg tablet See Rx Instructions .ROUTE DAILY Rx Instructions: 2 mg with 1 mg Q 8 am daily; triamcinolone acetonide 0.5 % cream 1 appl topical BID 7 Days Qty: 15 0RF Rx Instructions: apply to posterior neck rash Tussin CF (PE-DM-guaif) 5-10-100 mg/5 mL liquid 5 ml PO Q6H PRN (Reason: for cough) Qty: 237 3RF (DME) DIABETIC SHOES See Rx Instructions .Route .MEDSUPPLY Qty: 1 0RF Rx Instructions: As directed tamsulosin 0.4 mg capsule 0.4 mg PO QPM Qty: 90 3RF oxybutynin chloride 5 mg tablet extended release 24hr 5 mg PO DAILY 90 Days Qty: 90 1RF Print Language: Uzbek
--- NOTE | 2023-11-30 10:50 | PC.NURSE ---
phone call w poison control RE accidental ingestion of another pt's medications from [facility] around 0900. pt's am medications: fluvoxamine 100mg risperdal 1mg amlodipine 5mg lisinopril 10mg metformin 1000mg oxybutynin 5mg vit d 2000u calcium 600mg additional meds: metformin 750mg sertraline 150mg guafacine 4mg chlorpromazine 100mg control - unspecified per poison control - monitor for anticholergenic rxns, HTN, bradycardia, dystonia. check protocol labs for overdose ingestion, EKGs q 2hr, POC q 1hr. rec monitoring pt for side effects for 6-8hrs.
[2023-11-30 11:27] LABS: MANUAL DIFF FLAG NO
[2023-11-30 11:29] LABS: Basophils Absolute Auto 0.1 X10*3/uL (0.0-0.2); Basophils Percent Auto 0.9 % (0-2); Eosinophils Absolute Auto 0.1 X10*3/uL (0.0-0.4); Eosinophils Percent Auto 2.2 % (0-4); Hematocrit 41.7 % (42.0-52.0); Imm Gran Abs Auto 0.01 X10*3/uL (0.00-0.03); Imm Gran Pct Auto 0.2 % (0.0-0.4); Lymphocytes Percent Auto 34.9 % (20-40); Mean Corpuscular HGB Conc 33.6 g/dl (31.0-36.0); Mean Corpuscular Hemoglobin 29.9 pg (27.0-33.0); Mean Corpuscular Volume 89.1 fL (80.0-98.0); Mean Platelet Volume 10.7 fL (9.4-12.4); Monocytes Absolute Auto 0.7 X10*3/uL (0.1-1.2); Monocytes Percent Auto 11.8 % (2-11); Neutrophils Absolute Auto 2.9 x10*3/uL (2.0-8.3); Platelet Count 192 X10*3/uL (160-400); Red Blood Count 4.68 X10*6/uL (4.60-5.80); Red Cell Distribution Width 12.7 % (11.0-16.0); White Blood Count 5.8 X10*3/uL (4.8-10.8)
[2023-11-30 11:33] LABS: Glucose, Whole Blood 112 mg/dL (60-115)
[2023-11-30 11:43] LABS: Ethanol < 10 mg/dL
[2023-11-30 11:45] LABS: Alanine Aminotransferase 28 U/L (0-40); Albumin Level 4.4 g/dL (3.5-5.0); Alkaline Phosphatase 96 U/L (39-117); Anion Gap 14 (12-20); Aspartate Amino Transferase 15 U/L (5-37); Bilirubin Total 0.4 mg/dL (0.0-1.0); Blood Urea Nitrogen 10 mg/dL (9-16); Calcium 10.6 mg/dL (8.4-10.2); Carbon Dioxide 26 mmol/L (22-29); Chloride 104 mmol/L (96-108); Creatinine Clr Calc Pharmacy 97.4; Estimated Glomerular Filt Rate > 60; Glucose Random 113 mg/dL (60-115); Magnesium 2.2 mg/dL (1.6-2.6); Potassium 3.8 mmol/L (3.3-5.1); Sodium 140 mmol/L (135-145); Total Protein 8.1 g/dL (6.5-8.0)
[2023-11-30 11:52] LABS: Acetaminophen LAB < 3 mcg/mL (<30); Salicylate < 5.0 mg/dL (15-30)
[2023-11-30 12:20] LABS: Glucose, Whole Blood 117 mg/dL (60-115)
[2023-11-30 12:40] LABS: Appearance Urine Clear; Color Urine Yellow; Glucose Urine UA Negative (Negative); Leukocyte Esterase Urine Negative (Negative); Nitrite Urine Negative (Negative); Specific Gravity - Urine <= 1.005 (1.005-1.025); Urine Blood Negative (Negative); Urine Ketones Negative (Negative); Urine Protein Negative (Neg-Trace)
[2023-11-30 12:50] LABS: Amphetamine Screen Urine Not Detected (Not Detect); Barbiturates, Urine Not Detected (Not Detect); Benzodiazepines Screen Urine Not Detected (Not Detect); Buprenorphine Scr Not Detected (Not Detect); Cannabinoid Screen Urine Not Detected (Not Detect); Cocaine Screen Urine Not Detected (Not Detect); Fentanyl, urine Not Detected (Not Detect); Methadone Screen, Urine Not Detected (Not Detect); Opiate Screen Urine Not Detected (Not Detect); Oxycodone Screen Urine Not Detected (Not Detect); Phencyclidine Screen Urine Not Detected (Not Detect)
[2023-11-30 13:15] LABS: Glucose, Whole Blood 117 mg/dL (60-115)
--- NOTE | 2023-11-30 13:15 | ECG_ITS ---
Test Reason : ACCIDENTAL INGESTION Blood Pressure : / mmHG Vent. Rate : 065 BPM Atrial Rate : 065 BPM P-R Int : 138 ms QRS Dur : 084 ms QT Int : 398 ms P-R-T Axes : 063 044 009 degrees QTc Int : 413 ms Normal sinus rhythm Normal ECG When compared with ECG of 30-NOV-2023 11:20, No significant change was found Referred By: Daniel Fabian Electronically Signed By:SAHIL ORNELAS
[2023-11-30 14:17] LABS: Glucose, Whole Blood 142 mg/dL (60-115)
[2023-11-30] MEDS: 0.9 % Sodium Chloride 1,000 ML 999 ML IV (14:30)
--- NOTE | 2023-11-30 14:35 | PC.NURSE ---
Patient went from bed 6 [address] in ED to the bathroom near bed 20. Ambulation not witnessed by this RN due to attending to another patient. Emergency alarm was pulled in the bathroom, and patient had an apparent syncopal episode while on the toilet. No head strike per other staff. Patient transferred by staff from toilet to stretcher and returned to bed 6 [address]. 22g IV access established by this RN to left wrist. Initial 18g IV access in left AC removed due to infiltration while flushing with normal saline. Pt noted to be hypotensive. 1L normal saline infusion initiated. Pt is non-verbal at baseline. Other vital signs stable at this time. Sitter at bedside. Staff member from half-way also sitting next to patient, but is primarily using an electronic device. PA aware of incident, incident report to be completed. STAT EKG obtained and STAT POC Glucose also obtained and stable. Will continue hourly POC Glucose checks and Q2H EKG per poison control guidance/provider orders. Care ongoing.
--- NOTE | 2023-11-30 15:15 | ECG_ITS ---
Test Reason : SYNCOPE Blood Pressure : / mmHG Vent. Rate : 069 BPM Atrial Rate : 069 BPM P-R Int : 136 ms QRS Dur : 088 ms QT Int : 406 ms P-R-T Axes : 062 038 010 degrees QTc Int : 435 ms Normal sinus rhythm Normal ECG When compared with ECG of 30-NOV-2023 14:25, Heart rate has increased Referred By: Ashleigh Garcia Electronically Signed By:SAHIL ORNELAS
[2023-11-30 15:25] LABS: Glucose, Whole Blood 129 mg/dL (60-115)
--- NOTE | 2023-11-30 16:08 | PC.NURSE ---
Preparing for discharge. Vital signs stable. Pt has returned to baseline after vasovagal episode in bathroom earlier (see previous note). No fall or head strike. IV access removed. [facility]waiting [facility] return to [facility] staff ride en route. Belongings returned to patient.
--- NOTE | 2023-11-30 17:15 | ECG_ITS ---
Test Reason : SYNCOPLE EPISODE Blood Pressure : / mmHG Vent. Rate : 057 BPM Atrial Rate : 057 BPM P-R Int : 128 ms QRS Dur : 086 ms QT Int : 422 ms P-R-T Axes : 061 056 036 degrees QTc Int : 410 ms Sinus bradycardia Otherwise normal ECG When compared with ECG of 30-NOV-2023 13:19, Heart rate has decreased Referred By: Ashleigh Garcia Electronically Signed By:SAHIL ORNELAS
== END 2023-11-30 16:13 | disposition home or self-care (01) ==
PROVIDERS: Registered Nurse Emergency; Emergency Provider Emergency Medicine; PCP Internal Medicine
DX: T38.3X1A Poisoning by insulin and oral hypoglycemic [antidiabetic] drugs, accidental (unintentional), initial encounter (principal); T43.221A Poisoning by selective serotonin reuptake inhibitors, accidental (unintentional), initial encounter; T46.5X1A Poisoning by other antihypertensive drugs, accidental (unintentional), initial encounter; T43.3X1A Poisoning by phenothiazine antipsychotics and neuroleptics, accidental (unintentional), initial encounter; T38.4X1A Poisoning by oral contraceptives, accidental (unintentional), initial encounter; R40.0 Somnolence; Y92.049 Unspecified place in boarding-house as the place of occurrence of the external cause; E11.9 Type 2 diabetes mellitus without complications; I10 Essential (primary) hypertension; Z79.899 Other long term (current) drug therapy
CPT/HCPCS: 36415; 80053; 80143; 80179; 80307; 81003; 82947; 83735; 85025; 93005; 96360; 99285

== ENCOUNTER 2023-12-03 10:28 | Outpatient (AMB) | payer MEDICARE, MEDICAID, SELFPAY ==
[2023-12-03 10:31] VITALS: BP 130/76; PULSE 70; O2SAT 98; BMI 28.2
--- NOTE | 2023-12-03 10:31 | A.OFFPC_ITS ---
Vital Signs 12/03/23 10:31 Height 5 ft 11 in Weight 202 lb BMI 28.2 BP 130/76 Blood Pressure Location Lt brachial Position Sitting Pulse 70 Pulse Source Pulse Oximeter Pulse Oximetry (%) 98 Oxygen Delivery Method Room Air Intake Visit Reasons: [facility] 11/29 wrong medication taken Intake Note: Patient is here to follow-up after a visit the emergency department at [facility] on 11/29 Labor Relations Director Required: No Allergies No Known Allergies [No Known Allergies*] Allergy (Verified 12/03/23 10:31) Medication List - Last Reconciled 12/03/23 by Yulisa Tomlin PA-C acetaminophen ER (Mapap Arthritis Pain) 650 mg PO Q8H PRN amlodipine 5 mg PO DAILY ammonium lactate 12% 1 appl topical BID blood sugar diagnostic (Contour Next Test Strips) As directed calcium carbonate 600 mg PO DAILY cholecalciferol (vitamin D3) 50 mcg (2 x 25 mcg (1,000 unit)) PO DAILY clotrimazole 1% 1 appl topical BID [countour NExT test strips check the blood sugar once a day As directed] [DIABETIC SHOES As directed] fluvoxamine 100 mg PO BID hydroxyzine HCl 25 mg PO Q8H PRN lancets As directed check the blood sugars once a day lisinopril 10 mg PO DAILY 90 days lorazepam (Ativan) 0.5 mg orally 30 minutes before doctor's appointment; 30 days metformin 1,000 mg PO BID 30 days mineral oil-isopropyl myristat (Hydrocerin lotion) 1 appl topical TID-QID PRN oxybutynin chloride ER 5 mg PO DAILY 90 days [id number] 5-10-100 mg/5 mL (Tussin CF (PE-DM-guaif)) 5 mL PO Q6H PRN risperidone (Risperdal) 1 mg PO DAILY risperidone (Risperdal) 2 mg with 1 mg Q 8 am daily; tamsulosin 0.4 mg PO QPM triamcinolone acetonide 0.5% 1 appl topical BID 1 week Tobacco use date assessed: 12/03/23 Fall risk assessment: No Falls in past year Last assessed Fall Risk: 12/03/23 Dental Screening Dental Screen Date: 12/03/23 HPI [facility] 11/29 wrong medication taken HPI Details 63-year-old overweight male with a menta l and behavioral problem echolalia diabetes mellitus hypertension history of prostate cancer fatty liver coming in for hospital follow up.? In review of the notes, patient was seen in [facility] ED 11/1923 after accidental drug ingestion.?Poison control was consulted and patient was monitored considered stable and discharged home. Patient presents today with staff member who mentions he seems to be at his baseline. He did ingest metformin, Thorazine, oral contraceptive, guanfacine, and sertraline. Denies any over-sedation or GI side effects. No other accidental ingestions. [facility] Medical History (Updated 12/03/23 @ 11:07 by Yulisa Tomlin PA-C) Accidental drug ingestion Urinary incontinence Skin tag Urinary urgency Urinary frequency Rhinitis Cough Contact dermatitis and other eczema due to other specified agent Diverticulosis of colon Diarrhea Screening for colon cancer COVID-19 virus infection Anxiety Echolalia Tubular adenoma of colon Obesity (BMI 30-39.9) History of prostate cancer Hypertension Type 2 diabetes mellitus with hyperglycemia Surgical History Hx of colonoscopy History of hemicolectomy Family History Father No problems noted. Mother No problems noted. Social History Housing: Assisted Living Facility Alcohol intake: never Patient Tobacco Use Status: Never used Tobacco e-Cigarette/Vaping Use: Never Used Second Hand Smoke Exposure: No Advance Directives Date on File: 03/17/23 service: No Current occupational status: disabled Current occupational exposures/hazards: No Cognitive needs: Yes Hearing needs: No Vision needs: No Questionnaire Thrive Questionnaire Date Thrive assessed: 08/18/23 AUDIT C Alcohol Use Questionnaire (AUDIT-C) 1. How often do you have a drink containing alcohol?: Never 2. How many drinks containing alcohol do you have on a typical day when you are drinking?: 1 or 2 (0) 3. How often do you have six or more drinks on one occasion?: Never Total Score: 0 Score Reviewed/Action Taken: No DEVIN-7 AMB Questionnaire DEVIN-7 Date DEVIN - 7 assessed: 08/18/23 Source: Developed by Drs. Mann Jarvis, Karime Fischer, Christian Cabrera and colleagues, with an educational july from [employer]. Review of Systems Const Denies chills and Denies fever(s) Eyes Reports no additional complaints ENT Reports no additional complaints Card Reports no additional complaints Resp Reports no additional complaints GI Denies abdominal pain, Denies diarrhea, Denies nausea and Denies vomiting Reports no additional complaints Musc Reports no additional complaints and Denies abnormal gait Skin/Breast Reports system reviewed and no additional complaints, except as documented Neuro Denies abnormal gait Psych Reports no additional complaints Physical exam (Primary Care) Vital Signs: Last Vital Signs Pulse 70 12/03/23 10:31 BP 130/76 12/03/23 10:31 Pulse Ox 98 12/03/23 10:31 Oxygen Delivery Method Room Air 12/03/23 10:31 BMI result Body Mass Index 28.2 Tobacco/Smoking Status: Tobacco use Status Tobacco use date assessed 12/03/23 12/03/23 10:32 Patient Tobacco Use Status Never used Tobacco 12/03/23 10:32 e-Cigarette/Vaping Use Never Used 12/03/23 10:32 Thrive Assessment: Date of Thrive Assessment Date Thrive assessed 08/18/23 12/03/23 10:32 Const General: cooperative, healthy appearing, comfortable and no acute distress Orientation/consciousness: patient oriented x3 HENMT Head: Yes normocephalic Ears: hearing grossly normal bilaterally General nose exam: Normal external nose present Eyes General: appearance normal, both eyes and all related structures Conjunctivae: conjunctivae normal Neck Neck: Yes full ROM and Yes no lymphadenopathy Resp Effort & Inspection: normal respiratory effort Auscultation: clear to auscultation bilaterally, no crackles, no rales, no rhonchi and no wheezes Cardio Rate: regular rate Rhythm: regular rhythm GI Inspection: Yes normal to inspection Palpation (GI): Soft to palpation, not firm, nontender, no guarding, not rigid and No Rebound tenderness present Skin General skin exam: no rashes or lesions noted Neuro General: patient oriented x3 Gait exam (Neuro): Normal gait present Extrem General: Yes normal to inspection, Yes full ROM and No edema Psych Affect: normal affect Attitude: cooperative Insight: Good insight present (Psych) Judgement: Good judgement present (Psych) Assessment and Plan Assessment & Plan (1) Accidental drug ingestion: Code(s): T50.901A - Poisoning by unspecified drugs, medicaments and biological substances, accidental (unintentional), initial encounter Plan: Patient had accidents or drug ingestion on 11/30/2023 of metformin, sertraline, guanfacine, and chlorpromazine. Discussed at length the potential side effects of these medications and how they may interact with his current medications. Patient is unlikely to have the side effects as the ingestion was several days ago and was monitored appropriately in the ER and also discussed with poison control at that time. Patient appears to be at baseline today advised patient and staff member to monitor for signs of over-sedation or GI side effects. All questions were answered and patient was cleared to return to day program. Plan This note was constructed using voice recognition software. While every effort has been made to ensure accuracy and non destructive evaluation manager, still areas may have been included sometimes these areas may affect the content or meeting of the given symptoms. Total time spent caring for the patient today was 20 minutes. This includes time spent before the visit reviewing the chart, time spent during the visit, and time spent after the visit and documentation. Coding Level of Care Code Est Pt Level 3 (58696) Diagnoses Accidental drug ingestion T50.901A
== END 2023-12-03 11:09 | disposition home or self-care (01) ==
PROVIDERS: PCP Internal Medicine
DX: T50.901A Poisoning by unspecified drugs, medicaments and biological substances, accidental (unintentional), initial encounter (principal)
CPT/HCPCS: 99213

== ENCOUNTER 2023-12-31 13:52 | Outpatient (AMB) | payer MEDICARE, MEDICAID, SELFPAY ==
[2023-12-31 13:57] VITALS: BP 136/88; PULSE 77; O2SAT 96; BMI 29.1
--- NOTE | 2023-12-31 13:57 | MHC.PC.OV ---
Vital Signs 12/31/23 13:57 Height 5 ft 11 in Weight 209 lb BMI 29.1 BP 136/88 Blood Pressure Location Lt brachial Position Sitting Pulse 77 Pulse Source Pulse Oximeter Pulse Oximetry (%) 96 Oxygen Delivery Method Room Air Intake Visit Reasons: DM Follow Up Db2 Dba Required: No Accompanied by: Self / Same As Patient Allergies No Known Allergies [No Known Allergies*] Allergy (Verified 12/31/23 13:57) Tobacco use date assessed: 12/31/23 Fall risk assessment: No Falls in past year Last assessed Fall Risk: 12/31/23 Dental Screening Dental Screen Date: 12/31/23 Did you have a dental visit in the last 12 months?: Yes Did you have a dental problem in the last 6 months where you did not have access to dental care?: No Was dental information given to patient?: Patient has dentist HPI DM Follow Up HPI Details 63-year-old overweight male with echolalia history of prostate cancer diabetes mellitus hypertension coming in for follow-up. November last seen. Patient is up-to-date with colonoscopy 04/01/2023. Last blood work for cholesterol is 06/02/2023 [facility] Medical History (Updated 12/03/23 @ 11:07 by Yulisa Tomlin PA-C) Accidental drug ingestion Urinary incontinence Skin tag Urinary urgency Urinary frequency Rhinitis Cough Contact dermatitis and other eczema due to other specified agent Diverticulosis of colon Diarrhea Screening for colon cancer COVID-19 virus infection Anxiety Echolalia Tubular adenoma of colon Obesity (BMI 30-39.9) History of prostate cancer Hypertension Type 2 diabetes mellitus with hyperglycemia Surgical History Hx of colonoscopy History of hemicolectomy Family History Father No problems noted. Mother No problems noted. Social History Housing: Assisted Living Facility Alcohol intake: never Patient Tobacco Use Status: Never used Tobacco e-Cigarette/Vaping Use: Never Used Second Hand Smoke Exposure: No Advance Directives Date on File: 03/17/23 service: No Current occupational status: disabled Current occupational exposures/hazards: No Cognitive needs: Yes Hearing needs: No Vision needs: No Questionnaire PHQ-9 Over the last 2 weeks, how often have you been bothered by any of the following problems? 1. Little interest or pleasure in doing things: more than half the days 2. Feeling down, depressed, or hopeless: not at all 3. Trouble falling or staying asleep, or sleeping too much: not at all 4. Feeling tired or having little energy: nearly every day 5. Poor appetite or overeating: not at all 6. Feeling bad about yourself - or that you are a failure or have let yourself or your family down: not at all 7. Trouble concentrating on things, such as reading the newspaper or watching television: not at all 8. Moving or speaking so slowly that other people could have noticed. Or the opposite - being so fidgety or restless that you have been moving around a lot more than usual: not at all 9. Thoughts that you would be better off or of hurting yourself in some way: not at all Total score: 5 Depression Screening Interpretation: Positive Depression Screening Done: Yes 48737 - PHQ-9 Billing: Yes Source: Developed by Drs. Mann Jarvis, Karime Fischer, Christian Cabrera and colleagues, with an educational july from [employer]. Thrive Questionnaire Date Thrive assessed: 12/31/23 I am a: Patient What is your living situation today?: I have a steady place to live Within the past 12 months, did the food you bought not last and you didn't have the money to get more?: Never true Within the past 12 months, did you worry whether your food would run out before you got money to buy more?: Never true Do you have trouble paying for medicines?: No Do you have trouble getting transportation to medical appointments?: No Do you have trouble paying your heating and electricity bill?: No Do you have trouble taking care of your child, family member or friend?: No Do you have trouble with day-to-day activities such as bathing, preparing meals, shopping, managing finances, etc.?: No Are you currently unemployed and looking for a job?: No Are you interested in more education?: No Please select the resources that you would like help with: None Currently or been in a relationship where the following occur: No concerns reported THRIVE Score: 0 AUDIT C Alcohol Use Questionnaire (AUDIT-C) 1. How often do you have a drink containing alcohol?: Never 2. How many drinks containing alcohol do you have on a typical day when you are drinking?: 1 or 2 (0) 3. How often do you have six or more drinks on one occasion?: Never Total Score: 0 Score Reviewed/Action Taken: No DEVIN-7 AMB Questionnaire DEVIN-7 Date DEVIN - 7 assessed: 12/31/23 Feeling nervous, anxious, or on edge: 0 = Not at all Not being able to stop or control worryin = Not at all Worrying too much about different things: 0 = Not at all Trouble relaxin = Not at all Being so restless that it is hard to sit still: 0 = Not at all Becoming easily annoyed or irritable: 0 = Not at all Feeling afraid as if something awful might happen: 0 = Not at all Total DEVIN-7 score (0-4 normal; 5-9 mild; 10-14 moderate; 15-21 severe): 0 Source: Developed by Drs. Mann Jarvis, Karime Fischer, Christian Cabrera and colleagues, with an educational july from [employer]. Physical exam (Primary Care) Vital Signs: Last Vital Signs Pulse 77 12/31/23 13:57 BP 136/88 12/31/23 13:57 Pulse Ox 96 12/31/23 13:57 Oxygen Delivery Method Room Air 12/31/23 13:57 BMI result Body Mass Index 29.1 Tobacco/Smoking Status: Tobacco use Status Tobacco use date assessed 12/31/23 12/31/23 13:58 Patient Tobacco Use Status Never used Tobacco 12/31/23 13:58 e-Cigarette/Vaping Use Never Used 12/31/23 13:58 PHQ-9: PHQ-9 Score PHQ-9: Total score 5 12/31/23 14:13 Depression Screening Interpretation: Positive Thrive Assessment: Date of Thrive Assessment Date Thrive assessed 12/31/23 12/31/23 13:58 Currently or been in a relationship where the following occur: No concerns reported Const General: alert; No acute distress Eyes Conjunctivae: conjunctivae normal Resp Auscultation: clear to auscultation bilaterally Cardio Rate: regular rate Rhythm: regular rhythm GI Inspection: Yes normal to inspection Extrem General: Yes normal to inspection and No edema Results AMB Hemoglobin A1c AMB Hemoglobin A1c 6.7 % Last Edit by VINCENT Wise on 12/31/23 14:13 Results Reviewed Results Reviewed: Laboratory Last Values Hgb A1c (Clinic) 6.7 % (4.0-6.0) H 12/31/23 14:01 Assessment and Plan Assessment & Plan (1) Overweight (BMI 25.0-29.9): Code(s): E66.3 - Overweight Plan: Diet and exercise (2) Type 2 diabetes mellitus with hyperglycemia: Comment: Dr. Sanchez Code(s): E11.65 - Type 2 diabetes mellitus with hyperglycemia Qualifiers: Diabetes mellitus tank terminal gauger insulin use: without tank terminal gauger use Qualified Code(s): E11.65 - Type 2 diabetes mellitus with hyperglycemia Plan: Decrease the amount of carbohydrate intake, pasta, bread, rice and potatoes are all sugar and that is aside from all the sweet stuff, remember that fruits are good but they are Sweet also. Patient is presently on metformin a 1000 mg twice a day (3) Hypertension: Code(s): I10 - Essential (primary) hypertension Qualifiers: Hypertension type: essential hypertension Qualified Code(s): I10 - Essential (primary) hypertension Plan: Blood pressure takes lisinopril 10 mg once a day and amlodipine 5 mg once a day (4) History of prostate cancer: Comment: Two thousand fourteen seed implant Maria R March 2014Dr. Barker Code(s): Z85.46 - Personal history of malignant neoplasm of prostate Plan: Patient follows up with urology on tamsulosin (5) Echolalia: Code(s): R48.8 - Other symbolic dysfunctions Plan: Continue to follow-up with psychiatry and counseling. Orders: Orders AMB Hemoglobin A1c Today Z13.9 - Encounter for screening, unspecified Referrals Podiatry Referral E11.65 - Type 2 diabetes mellitus with hyperglycemia Coding Level of Care Code Est Pt Level 4 (87478) Diagnoses Overweight (BMI 25.0-29.9) E66.3 Type 2 diabetes mellitus with hyperglycemia, without long-term current use of insulin E11.65 Diabetes mellitus retirement insulin use: without tank terminal gauger use Essential hypertension I10 Hypertension type: essential hypertension History of prostate cancer Z85.46 Echolalia R48.8
== END 2023-12-31 14:53 | disposition home or self-care (01) ==
PROVIDERS: PCP Internal Medicine; Visit Provider Internal Medicine
DX: E66.3 Overweight (principal); E11.65 Type 2 diabetes mellitus with hyperglycemia; I10 Essential (primary) hypertension; Z85.46 Personal history of malignant neoplasm of prostate; R48.8 Other symbolic dysfunctions; Z13.9 Encounter for screening, unspecified

== ENCOUNTER → 2023-12-31 13:52 | Outpatient (BNVA) | payer MEDICARE, MEDICAID, SELFPAY | PROVIDERS: PCP Internal Medicine; Visit Provider Internal Medicine | DX: E11.65 Type 2 diabetes mellitus with hyperglycemia (principal); E66.3 Overweight; Z68.29 Body mass index [BMI] 29.0-29.9, adult; I10 Essential (primary) hypertension; R48.8 Other symbolic dysfunctions; Z85.46 Personal history of malignant neoplasm of prostate | CPT/HCPCS: 83036; 99212 ==

== ENCOUNTER 2024-07-11 16:26 | Outpatient (REF) | payer MEDICARE, MEDICAID, SELFPAY ==
[2024-07-11 17:50] LABS: Prostate Specific Antigen < 0.10 ng/mL (<0.05-4.0)
--- OUTSIDE RECORDS SUMMARY | 2024-07-11 18:02 | XMS_ITS | Clinical Summary ---
Author Organization [address] [facility] Address [address] [place] [address] Phone Care Team Providers Care Toddler Teacher Name Role Phone Mp Rust MD Primary Care Provider [phone] Allergies No known active allergies Medications metFORMIN (GLUCOPHAGE) 500 mg tablet Take 500 mg by mouth 2 times daily (with meals). Active OXYBUTYNIN CHLORIDE ORAL Take by mouth. A ctive hydrOXYzine HCL (ATARAX) 25 mg tablet Take 25 mg by mouth 3 times daily as needed. Active clotrimazole (LOTRIMIN) 1 % cream APPLY TO AFFECTED AREAS OF BOTH FEET DAILY FOR 14 DAYS 0 Active ammonium lactate (AMLACTIN) 12 % cream APPLY 1 GRAM OF CREAM TO EACH FOOT TWICE DAILY - ONCE IN THE MORNING AND ONCE AT BEDTIME 9 Active lisinopriL (PRINIVIL,ZESTR IL) 10 mg tablet Take 10 mg by mouth daily. Active amLODIPine (NORVASC) 5 mg tablet Take 5 mg by mouth daily. Active cholecalciferol (VITAMIN D-3) 50 mcg (2,000 unit) capsule Take 1 Cap by mouth daily. Active aspirin 81 mg EC tablet Take 81 mg by mouth daily. Active calcium carbonate (CALCIUM 600 ORAL) Take 1 Tab by mouth daily. Active ferrous sulfate 325 mg (65 mg elemental iron) tablet Take 2 tablets by mouth daily. Active LORazepam (ATIVAN) 0.5 mg tablet Take 0.5 mg by mouth every 6 hours as needed. Active acetaminophen (TYLENOL) 325 mg tablet Take 650 mg by mouth every 4 hours as needed. Active guaifenesin/DM/ pseudoephedrine (TUSSIN CF ORAL) Take 5 mL by mouth every 6 hours as needed. Active tamsulosin (FLOMAX) 0.4 mg 24 hr capsule Take 0.4 mg by mouth at bedtime. Active fluvoxaMINE 100 mg capsule,extende d release 24hr Take 1 Cap by mouth 2 times daily. Active risperiDONE (RisperDAL) 2 mg tablet Take 2 mg by mouth at bedtime. Active risperiDONE (RisperDAL) 1 mg tablet Take 1 mg by mouth every morning. Active mineral oil/i-prop myr/water (HYDROCERIN TOP) Skin Protectants, Misc. (HYDROCERIN) Cream: Apply topically 2 times daily. - Apply externally Active mineral oil-isopropyl myristat (HYDROCERIN) lotion lotion Apply liberal amount hs Active Active Problems Problem Noted Date Diagnosed Date Benign prostatic hyperplasia 05/23/2016 CAD (coronary artery disease) 05/23/2016 Diabetes mellitus type 2 with neurological manif estations 05/23/2016 Hypertension 05/23/2016 Onychomycosis 05/23/2016 Pes planus of both feet 05/23/2016 Social History Tobacco Use Types Packs/Day Years Used Date Smoking Tobacco: Former Smokeless Tobacco: Never Alcohol Use Standard Drinks/Week Comments Not Asked 0 (1 standard drink = 0.6 oz pur e alcohol) Sex and Gender Information Value Date Recorded Sex Assigned at Not on file Legal Sex Male 8:04 AM EST Gender Identity Not on file Sexual Orientation Not on file Obstetrics History Last Filed Vital Signs Vital Sign Reading Time Taken Comments Blood Pressure - - Pulse - - Temperature - - Respiratory Rate - - Oxygen Saturation - - Inhaled Oxygen Concentration - - Weight 95.7 kg (211 lb) 02/17/2024 11:25 AM EST Height 180.3 cm (5' 10.98 ) 02/17/2024 11:25 AM EST Body Mass Index 29.44 02/17/2024 11:25 AM EST Plan of Treatment Upcoming Encounters Date Type Department Care Team (Late st Contact Info) Description 07/14/2024 10:15 AM EDT Office Visit Orthopedic Surgery - [address] [place] [phone] Patrick Lazo, DPM [address] [facility] [address] [place] [address] Health Maintenance Due Date Last Done Comments Diabetes: Annual GFR (Glomer ular Filtration Rate) 1958 Diabetes: Annual Foot Exam 1968 Diabetes: Annual Retina Eye Exam 1968 DTaP,Tdap,and Td Vaccines (1 - Tdap) 1977 Pneumococcal Vaccine: 50+ Ye ars (1 of 2 - PCV) 1977 Zoster Vaccines (1 of 2) 2008 RSV Immunization Patients 60 + Years Old (1 - Risk 60-74 years 1-dose series) 2018 Abdominal Aortic Aneurysm (A AA) Screen 03/16/2022 Cholesterol Screening (Lipid Panel) 03/16/2022 Colorectal Cancer Screening: Colonoscopy 03/16/2022 Depression Screening 03/16/2022 Hepatitis C Screening 03/16/2022 Medicare Annual Wellness Visit 03/16/2022 Social Influencers of Health Screening 03/16/2022 Diabetes: Annual Urine Albumin-Creatinine Ratio (uACR) 03/23/2022 Diabetes: Blood Sugar Contro l Test (HGBA1C) 03/23/2022 Hypertension/CHF/CAD Annual BMP Blood Test 03/29/2022 Falls Risk Assessment 2023 COVID-19 Vaccine ( - 2023-2 5 season) 2023 Influenza Vaccine (#1) 2023 01/02/2022 HIB Vaccines Aged Out No longer eligi ble based on patient's age to complete this topic HPV Vaccines Aged Out No longer eligi ble based on patient's age to complete this topic Hepatitis A Vaccines Aged Out No long er eligible based on patient's age to complete this topic Hepatitis B Vaccines Aged Out No long er eligible based on patient's age to complete this topic IPV Vaccines Aged Out No longer eligi ble based on patient's age to complete this topic MMR Vaccines Aged Out No longer eligi ble based on patient's age to complete this topic Meningococcal ACWY Vaccine Aged Out N o longer eligible based on patient's age to complete this topic Meningococcal B Vacine Aged Out No lo nger eligible based on patient's age to complete this topic RSV Immunization Patients Un jean 20 months Aged Out No longer eligible b ased on patient's age to complete this topic Varicella Vaccines Aged Out No longer eligible based on patient's age to complete this topic Insurance MEDICA[place] - [place] MEDICARE Care Teams Toddler Teacher Relationship Specialty Start Date End Date Mp Rust MD [address] [place] [address] Dr Garcia [address] [facility] [place] [address] PCP - General Internal Medicine 02/08/16
== END 2024-07-11 16:27 | disposition home or self-care (01) ==
LOC: HO.LAB 16:26
PROVIDERS: PCP Internal Medicine; Visit Provider Urology
DX: Z12.5 Encounter for screening for malignant neoplasm of prostate (principal)
CPT/HCPCS: 36415; 84153

== ENCOUNTER 2024-07-20 11:29 | Outpatient (AMB) | payer MEDICARE, MEDICAID, SELFPAY ==
--- NOTE | 2024-07-20 11:32 | MHC.OFFVIS ---
Intake Visit Reasons: 1Y/PSA(PSA?) Intake Note: Patient is Present for 1y Follow Up PSA Urology Medication:Oxybutynin, Tamsulosin Antibiotic Allergies: None Blood Thinners: none Traffic Control Officer Required: No Allergies No Known Allergies [No Known Allergies*] Allergy (Verified 07/20/24 11:33) HPI Comments Details: Javed is a pleasant male. He is a patient of Dr. Rust. He is seen for the following urologic conditions - prostate cancer - lower urinary tract symptoms with overactive bladder Accompanied by major case detective. nursing home. Yearly visit PSA remains control Remains on oxybutynin with tamsulosin for urinary urgency Background of antipsychotic medications No accidents Continue yearly review Prostate cancer - initial brachytherapy performed 2013 Stable PSA PSA 04/01 <0.1, 11/01 <0.1, 06/06 <0.1, 06/07 <0.1 Does have associated urgency and frequency - responsive to tamsulosin on oxybutynin Continue PSA surveillance [facility] Medical History (Updated 07/20/24 @ 11:42 by Ronen Leonardo MD) Urinary frequency Urinary urgency Accidental drug ingestion Urinary incontinence Skin tag Rhinitis Cough Contact dermatitis and other eczema due to other specified agent Diverticulosis of colon Diarrhea Screening for colon cancer COVID-19 virus infection Anxiety Echolalia Tubular adenoma of colon Obesity (BMI 30-39.9) History of prostate cancer Hypertension Type 2 diabetes mellitus with hyperglycemia Surgical History Hx of colonoscopy History of hemicolectomy Family History Father No problems noted. Mother No problems noted. Social History Housing: Assisted Living Facility Alcohol intake: never Patient Tobacco Use Status: Never used Tobacco e-Cigarette/Vaping Use: Never Used Second Hand Smoke Exposure: No Advance Directives Date on File: 03/17/23 service: No Current occupational status: disabled Current occupational exposures/hazards: No Cognitive needs: Yes Hearing needs: No Vision needs: No Review of Systems Const Denies chills and Denies fever(s) Card Reports no additional complaints and Denies syncope Resp Denies cough GI Denies abdominal pain and Denies heartburn Reports as per HPI and Denies change in libido Neuro Denies syncope Psych Denies change in libido Endo Denies change in libido Physical Exam Const General: cooperative, healthy appearing, comfortable and no acute distress Orientation/consciousness: patient oriented x3 HEENT Face and sinus: Yes normal facial exam Mouth: moist mucous membranes Neck Neck: Yes normal visual inspection, Yes full ROM and Yes trachea midline Chest Chest palpation & inspection: normal inspection of the chest Resp Effort & Inspection: normal respiratory effort, able to speak in complete sentences and no respiratory distress GI Inspection: Yes normal to inspection Back/Spine/Pelvis Cervical Spine: normal cervical lordosis Thoracic/Lumbar Spine: thoracic and lumbar spine normal to inspection Skin General skin exam: no rashes or lesions noted Neuro General: patient oriented x3, gait normal, tone normal and moves all extremities Extrem General: Yes normal to inspection and Yes capillary refill normal Assessment & Plan Assessment & Plan (1) Prostate cancer: Comment: 2013 Maria R Code(s): C61 - Malignant neoplasm of prostate Category: Medical (2) Urinary urgency: Code(s): R39.15 - Urgency of urination Category: Medical (3) Urinary frequency: Code(s): R35.0 - Frequency of micturition Category: Medical Plan One year follow-up Orders: Orders Prostate Specific Antigen 07/11/24 Z12.5 - Encounter for screening for malignant neoplasm of prostate Medications: Changed From tamsulosin 0.4 mg PO QPM 90 caps 0RF R35.0 - Frequency of micturition To tamsulosin 0.4 mg PO QPM 90 days 90 caps 3RF R35.0 - Frequency of micturition Refilled oxybutynin chloride ER 5 mg PO DAILY 90 days 90 tabs 3RF R35.0 - Frequency of micturition, R39.15 - Urgency of urination Patient Instructions: This note is constructed using voice recognition software. While every effort has been made to ensure accuracy wood and wood products labourer errors may have been included. Imaging studies, laboratory and physical exam results were discussed and reviewed in detail. No major barriers to patient understanding were identified. An opportunity to ask questions regarding the treatment plan was provided. All questions were answered. The patient expressed understanding and agreement with the above treatment plan. The patient is aware they should contact our office by phone for worsening of their current condition or the appearance of new urologic symptoms. Compliance is encouraged with any medications and followup testing that is ordered. It is a privilege to participate in the urologic care of your patient. If you have any questions or concerns regarding treatment for the above conditions, or other urologic issues, please do not hesitate to contact me. The office telephone contact is [phone]. Sincerely, Dr Ronen Leonardo MD, [facility] - Urology Compassionate Specialist Care for the Genitourinary System Coding Level of Care Code Est Pt Level 4 (60329) Complex EM visit Add On G2211 Diagnoses Prostate cancer C61 Urinary urgency R39.15 Urinary frequency R35.0
--- OUTSIDE RECORDS SUMMARY | 2024-07-20 13:37 | XMS_ITS | Clinical Summary ---
Author Organization [address] [facility] Address [address] [place] [address] Phone Care Team Providers Care Psychology Tech Name Role Phone Mp Rust MD Primary Care Provider [phone] Allergies No known active allergies Medications metFORMIN [...] 05/23/2016 Pes planus of both feet 05/23/2016 Encounters Date Type Department Care Team Description 07/14/2024 10:15 AM EDT Office Visit Orthopedic Surgery - [address] [phone] Patrick Lazo, DPM Arthritis of both ankles (Primary Dx); Dermatophytosis of nail; Verruca plantaris; Difficulty walking; Pain in toe of right foot; Pain in toe of left foot; Diabetic mononeuropathy simplex (CMS/HCC); Acquired hallux valgus of left foot; Acquired hallux valgus of right foot from Last 3 Months Social History Tobacco Use Types Packs/Day Years [...] - - Weight 95.7 kg (211 lb) 07/14/2024 10:38 AM EDT Height 180.3 cm (5' 10.98 ) 07/14/2024 10:38 AM EDT Body Mass Index 29.44 07/14/2024 10:38 AM EDT Plan of Treatment Upcoming Encounters Date Type Department Care Team (Late st Contact Info) Description 10/17/2024 10:15 AM EDT Office Visit Orthopedic Surgery - [place] [phone] Patrick Lazo, DPM [address] [id number] Health Maintenance Due Date Last Done Comments Diabetes: Annual GFR (Glomerular Filtration Rate) 1958 Diabetes: Annual Foot Exam 1968 Diabetes: Annual Retina Eye Exam 1968 RSV Immunization Adult Patients (1 - Risk 60-74 years 1-dose series) 2018 Abdominal Aortic Aneurysm (AAA) Screen 03/16/2022 Cholesterol Screening (Lipid Panel) 03/16/2022 Colorectal Cancer Screening: Colonoscopy 03/16/2022 Depression Screening 03/16/2022 Hepatitis C Screening 03/16/2022 Medicare Annual Wellness Visit 03/16/2022 Social Influencers of Health Screening 03/16/2022 Diabetes: Annual Urine Albumin-Creatinine Ratio (uACR) 03/23/2022 Diabetes: Blood Sugar Control Test (HGBA1C) 03/23/2022 Hypertension/CHF/CAD Annual BMP Blood Test 03/29/2022 Falls Risk Assessment 2023 DTaP,Tdap,and Td Vaccines (2 - Td or Tdap) 11/14/2032 11/14/2022 Zoster Vaccines Completed 06/20/2020, 03/21/2020 Pneumococcal Vaccine: 50+ Years Completed 08/18/2023, 07/31/2017 Influenza Vaccine Completed 03/03/2024, , 01/02/2022, Additional history exists COVID-19 Vaccine Completed 06/13/2024, 12/2023, 08/26/2021, Additional history exists HIB Vaccines Aged Out No longer eligi [...] age to complete this topic Meningococcal B Vaccine Aged Out No l onger eligible based on patient's age to complete this topic RSV Immunization Patients Under 20 months Aged Out No longer eligible based on patient's age to complete this topic Varicella Vaccines Aged Out No longer eligible based on patient's age to complete this topic Insurance MEDICAID - [place] MEDICARE Care Teams Psychology Tech Relationship Specialty Start Date End Date Mp Rust MD [address] [place] [address] [address] [facility] [place] [address] PCP - General Internal Medicine 02/08/16
== END 2024-07-20 11:45 | disposition home or self-care (01) ==
LOC: HO.HUSH 11:30
PROVIDERS: PCP Internal Medicine; Visit Provider Urology
DX: C61 Malignant neoplasm of prostate (principal); R39.15 Urgency of urination; R35.0 Frequency of micturition
CPT/HCPCS: 99214; G2211

== ENCOUNTER → 2024-07-20 11:29 | Outpatient (BNVA) | payer MEDICARE, MEDICAID, SELFPAY | PROVIDERS: PCP Internal Medicine; Visit Provider Urology | DX: C61 Malignant neoplasm of prostate (principal); N32.81 Overactive bladder; R39.15 Urgency of urination; R35.0 Frequency of micturition; Z12.5 Encounter for screening for malignant neoplasm of prostate | CPT/HCPCS: 99212 ==

== ENCOUNTER 2024-08-25 12:22 | Outpatient (AMB) | payer MEDICARE, MEDICAID, SELFPAY ==
--- NOTE | 2024-08-25 12:36 | AM.OFFVISMDC ---
Intake Vital Signs 08/25/24 12:37 Height 5 ft 11 in Weight 217 lb BMI 30.3 BP 132/80 Blood Pressure Location Lt brachial Position Sitting Pulse 82 Pulse Source Pulse Oximeter Pulse Oximetry (%) 98 Oxygen Delivery Method Room Air Intake Visit Reasons: AWV Allergies No Known Allergies [No Known Allergies*] Allergy (Verified 08/25/24 12:37) Medication List - Last Reconciled 08/25/24 by Mp Rust MD acetaminophen ER (Mapap Arthritis Pain) 650 mg PO Q8H PRN amlodipine 5 mg PO DAILY ammonium lactate 12% 1 appl topical BID blood sugar diagnostic (True Metrix Glucose Test Strip) As directed blood-glucose meter As directed calcium carbonate 600 mg PO DAILY cholecalciferol (vitamin D3) 50 mcg (2 x 25 mcg (1,000 unit)) PO DAILY clotrimazole 1% 1 appl topical BID [DIABETIC SHOES As directed] fluvoxamine 100 mg PO BID hydroxyzine HCl 25 mg PO Q8H PRN lancets As directed check the blood sugars once a day lisinopril 10 mg PO DAILY 90 days lorazepam (Ativan) 0.5 mg orally 30 minutes before doctor's appointment; 30 days metformin 1,000 mg PO BID 30 days mineral oil-isopropyl myristat 1 appl topical TID-QID PRN oxybutynin chloride ER 5 mg PO DAILY 90 days [id number] 5-10-100 mg/5 mL (Robafen CF (phenylephrine)) 5 mL PO Q6H PRN risperidone (Risperdal) 1 mg PO DAILY risperidone (Risperdal) 2 mg with 1 mg Q 8 am daily; tamsulosin 0.4 mg PO QPM 90 days triamcinolone acetonide 0.5% 1 appl topical BID 1 week HPI AWV HPI Details [facility] Urology Dr. Leonardo, podiatry [facility] Orthopedic surgery, Ophthalmology Dr. Gillis, gastroenterology [facility] Medical History (Updated 08/25/24 @ 13:06 by Mp Rust MD) Urinary frequency Urinary urgency Accidental drug ingestion Urinary incontinence Skin tag Rhinitis Cough Contact dermatitis and other eczema due to other specified agent Diverticulosis of colon Diarrhea Screening for colon cancer COVID-19 virus infection Anxiety Echolalia Tubular adenoma of colon Obesity (BMI 30-39.9) History of prostate cancer Hypertension Type 2 diabetes mellitus with hyperglycemia Surgical History Hx of colonoscopy History of hemicolectomy Family History Father No problems noted. Mother No problems noted. Social History Housing: Assisted Living Facility Alcohol intake: never Patient Tobacco Use Status: Never used Tobacco e-Cigarette/Vaping Use: Never Used Second Hand Smoke Exposure: No Advance Directives Date on File: 03/17/23 service: No Current occupational status: disabled Current occupational exposures/hazards: No Cognitive needs: Yes Hearing needs: No Vision needs: No Questionnaire Medicare Wellness Checkup [age] What gender do you identify with?: male During the past 4 weeks, how much have you been bothered by emotional problems such as feeling anxious, depressed, irritable, sad or downhearted, and blue?: moderately During the past 4 weeks, has your physical & emotional health limited your social activities with family, friends, neighbors, or groups?: not at all During the past 4 weeks, how much bodily pain have you generally had?: very mild pain During the past 4 weeks, was someone available to help you if you needed & wanted help?: yes, as much as I wanted During the past 4 weeks, what was the hardest physical activity you could do for at least 2 minutes?: very light Can you get to places out of walking distance without help? (For eg., can you travel alone on buses, taxis or drive your car?): Yes Can you go shopping for groceries or clothes without someone's help?: No Can you prepare your own meals?: No Can you do your housework without help?: No Because of any health problems, do you need the help of another person with your personal care needs such as eating, bathing, dressing or getting around the house?: Yes Can you handle your own money without help?: No During the past 4 weeks, how would you rate your health in general?: good During the past 4 weeks how have things been going for you?: good & bad parts about equal Are you having difficulties driving your car?: not applicable, I don't use a car Do you always fasten your seat belt when you are in a car?: yes, usually During past 4 weeks, have you been bothered by the following: never: Falling or dizzy when standing up, Sexual problems?, Trouble eating well? and Teeth or denture problems? and sometimes: Problems using the telephone? and Tiredness or fatigue? Have you fallen 2 or more times in the past year?: No Are you afraid of falling?: No Are you a smoker?: no During the past 4 weeks, how many drinks of wine, beer, or other alcoholic beverages did you have?: no alcohol at all Do you exercise for about 20 minutes 3 or more times a week?: yes, most of the time Have you been given information to help with the following?: yes: Hazards in your house that might hurt you? and no: Keeping track of your medications? How often do you have trouble taking medicines the way you have been told to take them?: I always take medicine as prescribed How confident are you that you can control & manage most of your health problems?: not very confident What is your race?: Black or PHQ-9 Over the last 2 weeks, how often have you been bothered by any of the following problems? 1. Little interest or pleasure in doing things: not at all 2. Feeling down, depressed, or hopeless: more than half the days 3. Trouble falling or staying asleep, or sleeping too much: not at all 4. Feeling tired or having little energy: several days 5. Poor appetite or overeating: not at all 6. Feeling bad about yourself - or that you are a failure or have let yourself or your family down: not at all 7. Trouble concentrating on things, such as reading the newspaper or watching television: more than half the days 8. Moving or speaking so slowly that other people could have noticed. Or the opposite - being so fidgety or restless that you have been moving around a lot more than usual: not at all 9. Thoughts that you would be better off or of hurting yourself in some way: not at all Total score: 5 Depression Screening Interpretation: Positive Depression Screening Done: Yes 71918 - PHQ-9 Billing: Yes Source: Developed by Drs. Mann Jarvis, Karime Fischer, Christian Cabrera and colleagues, with an educational july from [employer]. Thrive Questionnaire Date Thrive assessed: 08/25/24 I am a: Parent/Caregiver What is your living situation today?: I have a steady place to live Within the past 12 months, did the food you bought not last and you didn't have the money to get more?: Never true Within the past 12 months, did you worry whether your food would run out before you got money to buy more?: Never true Do you have trouble paying for medicines?: No Do you have trouble getting transportation to medical appointments?: No Do you have trouble paying your heating and electricity bill?: No Do you have trouble taking care of your child, family member or friend?: No Do you have trouble with day-to-day activities such as bathing, preparing meals, shopping, managing finances, etc.?: No Are you currently unemployed and looking for a job?: No Are you interested in more education?: No Currently or been in a relationship where the following occur: No concerns reported THRIVE Score: 0 DEVIN-7 AMB Questionnaire DEVIN-7 Date DEVIN - 7 assessed: 08/25/24 Feeling nervous, anxious, or on edge: 0 = Not at all Not being able to stop or control worryin = Not at all Worrying too much about different things: 0 = Not at all Trouble relaxin = Not at all Being so restless that it is hard to sit still: 0 = Not at all Becoming easily annoyed or irritable: 0 = Not at all Feeling afraid as if something awful might happen: 0 = Not at all Total DEVIN-7 score (0-4 normal; 5-9 mild; 10-14 moderate; 15-21 severe): 0 Source: Developed by Drs. Mann Jarvis, Karime Fischer, Christian Cabrera and colleagues, with an educational july from [employer]. Review of Systems Const Denies poor appetite and Denies weakness Eyes Denies no additional complaints ENT Reports Normal hearing present, Denies dizziness, Denies nasal congestion, Denies tinnitus and Denies sore throat Card Denies chest pain, Denies syncope, Denies rapid heart rate and Denies dyspnea Resp Denies cough and Denies dyspnea GI Denies change in stool character, Reports constipation, Denies diarrhea, Denies nausea and Denies vomiting Denies dysuria and Denies urinary frequency Neuro Reports Normal hearing present, Denies confusion, Denies dizziness, Denies syncope and Denies weakness Psych Denies confusion Physical Exam Vital Signs: Last Vital Signs Pulse 82 08/25/24 12:37 BP 132/80 08/25/24 12:37 Pulse Ox 98 08/25/24 12:37 Oxygen Delivery Method Room Air 08/25/24 12:37 BMI result Body Mass Index 30.3 Const General: No confusion Orientation/consciousness: No confusion HEENT Head: Yes normocephalic Ears: external ears normal and TM's normal bilaterally Face and sinus: Yes normal facial exam Mouth: moist mucous membranes Throat: Yes tonsils normal Eyes Conjunctivae: conjunctivae normal Pupils: Equal, round and reactive pupils present and Pupil accommodation reflex normal Direct Ophthalmoscopy: normal light reflex Neck Neck: No lymphadenopathy Thyroid: Thyroid normal Chest Chest palpation & inspection: normal inspection of the chest Resp Effort & Inspection: normal respiratory effort and no audible wheezes Auscultation: clear to auscultation bilaterally, no crackles, no wheezes and lung sounds not diminished Cardio Rate: regular rate Rhythm: regular rhythm Peripheral pulses: radial pulses present and dorsalis pedis present GI Other: declined rectal , pedal pulse and pin prick good, tinea pedis and onychomycosis noted Palpation (GI): no masses Auscultation: normal bowel sounds and normoactive bowel sounds Rectal Exam - Male: Yes deferred Skin General skin exam: no rashes or lesions noted Rashes: no rashes Neuro General: No confusion Cranial nerves: Yes Equal, round and reactive pupils present and Yes Normal hearing present Cognition (Neuro): normal cognition Gait exam (Neuro): Normal gait present Motor exam (neuro): 5/5 motor strength present throughout Deep tendon reflexes (DTR's): Right brachioradialis reflex intensity grade: 2+, Left brachioradialis reflex intensity grade: 2+, Right patellar reflex intensity grade: 2+ and Left patellar reflex intensity grade: 2+ Extrem General: No edema Results AMB Hemoglobin A1c AMB Hemoglobin A1c 7.3 % Last Edit by Jossie Butt CMA on 08/25/24 12:55 Results Reviewed Results Reviewed: Laboratory Last Values Hgb A1c (Clinic) 7.3 % (4.0-6.0) H 08/25/24 12:36 Assessment & Plan Assessment & Plan (1) Medicare annual wellness visit, subsequent: Code(s): Z00.00 - Encounter for general adult medical examination without abnormal findings Plan: Patient is advised to eat healthy, keep well hydrated, keep active and have adequate sleep. (2) Type 2 diabetes mellitus with hyperglycemia: Comment: Dr. Sanchez, Dr. Gillis Code(s): E11.65 - Type 2 diabetes mellitus with hyperglycemia Qualifiers: Diabetes mellitus terminal gauger supervisor insulin use: without terminal gauger supervisor use Qualified Code(s): E11.65 - Type 2 diabetes mellitus with hyperglycemia Plan: Decrease the amount of carbohydrate intake, pasta, bread, rice and potatoes are all sugar and that is aside from all the sweet stuff, remember that fruits are good but they are Sweet also. Hemoglobin A1c goal of less than 7.0 patient is on metformin a 1000 mg twice a day. Discussed that the blood sugar is high and that he needs to eat better. Discussed weight also went high. Will see how the sugars are in the next 3 months if it is continuously high then we will add medications. (3) Hypertension: Code(s): I10 - Essential (primary) hypertension Qualifiers: Hypertension type: essential hypertension Qualified Code(s): I10 - Essential (primary) hypertension Plan: Continue with blood pressure medication. Decrease salt intake and exercise patient is on lisinopril 10 mg once a day and amlodipine 5 mg once a day (4) Fatty liver: Code(s): K76.0 - Fatty (change of) liver, not elsewhere classified Plan: Low-fat diet and exercise (5) Prostate cancer: Comment: 2013 Code(s): C61 - Malignant neoplasm of prostate Plan: Continue to follow-up with urology patient is on oxybutynin and tamsulosin (6) Overweight (BMI 25.0-29.9): Code(s): E66.3 - Overweight Plan: Diet and exercise (7) Echolalia: Code(s): R48.8 - Other symbolic dysfunctions Plan: Continue follow-up with psychiatry (8) Tinea pedis: Code(s): B35.3 - Tinea pedis (9) Onychomycosis: Code(s): B35.1 - Tinea unguium Plan History of Present Illness The patient is a 64-year-old male presenting for a wellness visit. He has a background of several chronic conditions such as Type 2 Diabetes Mellitus and Essential Hypertension, which have been controlled with medication and lifestyle adjustments. He was previously treated for Prostate Cancer in 2013 and continues to monitor his prostate health with routine urologist appointments, the next of which is scheduled for July 2024. He also has hepatic steatosis and a past occurrence of a tubular adenoma of the colon, last evaluated in December 2022, indicating consistent surveillance of his gastrointestinal health. His echolalia, a neurological condition, remains noted in his health record but does not currently demand active intervention. The patient's lifestyle reveals he is overweight, though recent blood work in November 2023 shows a normal blood count. LDL cholesterol was effectively controlled earlier this year at 50 mg/dL, yet maintaining favorable cardiovascular risk factors through lifestyle adaptations is a current priority. Health Maintenance - Colonoscopy performed in December 2022 for colon health surveillance. - Bloodwork from November 2023 indicates normal blood counts. - LDL cholesterol was assessed in May with a level of 50 mg/dL. - Scheduled urology follow-up in July 2024. - Regular consultations with orthopedics and property portfolio officer for comprehensive care. Social History - Overweight status noted and under ongoing management. - Regular interaction with various specialists indicates a proactive approach to health maintenance. Review of Systems - Neurological: Reports echolalia. - Metabolic: Reports diabetes mellitus and hypertension under management. - Gastrointestinal: Reports history of hepatic steatosis and tubular adenoma of the colon. Physical Exam General: Cooperative, healthy appearing, comfortable, no acute distress and well developed Orientation: Patient oriented x3 Limitations: No limitations Head: Normal to inspection Ears: Hearing grossly normal bilaterally Nose: Normal external nose present Face and sinus: Normal facial exam Eyes: Appearance normal, both eyes and all related structures Neck: Normal visual inspection and Yes full ROM Respiratory: Normal respiratory effort and able to speak in complete sentences. Clear to auscultation bilaterally Cardiovascular: Regular rate and rhythm. Normal S1 and S2 GI: Normal to inspection. Soft to palpation and nontender Skin: No rashes or lesions noted Neuro: Patient oriented x3 Extremities: Normal to inspection Results - Labs: November 2023 blood work showing normal blood count. - Tests: May cholesterols test showing LDL 50 mg/dL. Plan The patient attends for a routine wellness evaluation to review and monitor several chronic conditions. His Type 2 Diabetes Mellitus and Essential Hypertension will continue under current treatment protocols, emphasizing medication adherence and lifestyle modifications. Recent lab results show favorable cholesterol levels, reflective of the patient's compliance and effective management. The routine follow-up with urology in July 2024 as part of prostate health surveillance is retained. The patient's interaction with orthopedic and podiatry specialists supports comprehensive ongoing care. Obesity management remains a focal point, advocating for sustained lifestyle adjustments to improve overall health outcomes. Patient was informed and verbally consented to the use of an ambient scribe for clinic note documentation during this visit. Discussion Notes During the visit, we discussed the patient?s ongoing management of diabetes, hypertension, and his history of prostate cancer. We emphasized the importance of continued medication adherence, including Tamsulosin and Oxybutynin, to manage symptoms effectively. LDL cholesterol control was applauded, and maintaining a healthy balance through diet and lifestyle was reinforced. The patient was informed about keeping his urology appointments for prostate health tracking and involving various specialists for comprehensive care. Future health surveillance through periodic blood work and monitoring was outlined, and the patient understood the need for sustained health engagement. Patient Instructions - Continue all current medications as prescribed. - Maintain regular blood glucose monitoring and lifestyle modifications to manage diabetes. - Follow up in July 2024 with urology for routine prostate health check. - Attend orthopedic and podiatry appointments as scheduled. - Focus on dietary adjustments and physical activity for weight management. - Contact healthcare provider if there are any changes in health or new symptoms arise. Orders: Orders Complete Blood Count Auto Diff 3 Months - Type 2 diabetes mellitus with hyperglycemia Comprehensive Met. Panel 3 Months - Type 2 diabetes mellitus with hyperglycemia Lipid Panel 3 Months . - Type 2 diabetes mellitus with hyperglycemia, E78.00 - Pure hypercholesterolemia, unspecified PSA, Ultra Sensitive 3 Months . - Type 2 diabetes mellitus with hyperglycemia AMB Hemoglobin A1c Today Z13.9 - Encounter for screening, unspecified Free T4 (Free Thyroxine) 3 Months . - Type 2 diabetes mellitus with hyperglycemia Thyroid Stimulating Hormone 3 Months . - Type 2 diabetes mellitus with hyperglycemia Microalbumin, Random (w Creat) 3 Months . - Type 2 diabetes mellitus with hyperglycemia Creatinine Urine 3 Months . - Type 2 diabetes mellitus with hyperglycemia Vitamin B12 and Folate 3 Months . - Type 2 diabetes mellitus with hyperglycemia Hemoglobin A1c 3 Months E11.65 - Type 2 diabetes mellitus with hyperglycemia Medications: New clotrimazole 1% foot and especiually between toes 1 appl topical BID 45 grams 1RF 4 weeks B35.3 - Tinea pedis Quality Reporting (2019) Depression/Bipolar (159/160/161/177) PHQ-9: Total score: 5 Coding Level of Care Code Medicare Subsequent (G0439) Diagnoses Medicare annual wellness visit, subsequent Z00.00 Type 2 diabetes mellitus with hyperglycemia, without long-term current use of insulin E11.65 Diabetes mellitus terminal gauger supervisor insulin use: without residential use Essential hypertension I10 Hypertension type: essential hypertension Fatty liver K76.0 Prostate cancer C61 Overweight (BMI 25.0-29.9) E66.3 Echolalia R48.8 Tinea pedis B35.3 Onychomycosis B35.1 Additional Codes PHQ-9 - 71518 - PHQ-9 Billing: Yes ([id number])
[2024-08-25 12:37] VITALS: BP 132/80; PULSE 82; O2SAT 98; BMI 30.3
--- OUTSIDE RECORDS SUMMARY | 2024-08-25 13:10 | XMS_ITS | Clinical Summary ---
Author Organization [address] [facility] Address [address] [place] [address] Phone Care Team Providers Care Finish Painter Name Role Phone Mp Rust MD Primary Care Provider [phone] Allergies No known active allergies Medications metFORMIN [...] artery disease) 05/23/2016 Diabetes mellitus type 2 wit h neurological manifestations ([facility] V24, [facility] V28) 05/23/2016 Hypertension 05/23/2016 Onychomycosis 05/23/2016 Pes planus of both feet 05/23/2016 Encounters Date Type Department Care Team Description 07/14/2024 10:15 AM EDT Office Visit Orthopedic Surgery - [address] [phone] Patrick Lazo, DPM Arthritis of both ankles (Primary Dx); Dermatophytosis of nail; Verruca plantaris; Difficulty walking; Pain in toe of right foot; Pain in toe of left foot; Diabetic mononeuropathy simplex (CMS/HCC V24, CMS/[facility] V28); Acquired hallux valgus of left foot; Acquired [...] AM EDT Office Visit Orthopedic Surgery - [place] [address] [phone] Patrick Lazo, DPMikayla [address] [address] Health Maintenance Due Date Last Done Comments [...] Falls Risk Assessment 2023 COVID-19 Vaccine ( season) 2024 06/13/2024, 05/22/2023, 08/26/2021, Additional history exists DTaP,Tdap,and Td Vaccines (2 - Td or Tdap) 11/14/2032 11/14/2022 Zoster Vaccines Completed 06/20/2020, 03/21/2020 Pneumococcal Vaccine: 50+ Years Completed 08/18/2023, 07/31/2017 Influenza Vaccine Completed 03/03/2024, , 01/02/2022, Additional history exists HIB Vaccines Aged Out [...] Insurance MEDICAID - [place] MEDICARE Care Teams Finish Painter Relationship Specialty Start Date End Date Mp Rust MD [address] [place] [address] [address] [facility] [place] [address] PCP - General Internal Medicine 02/08/16
== END 2024-08-25 13:16 | disposition home or self-care (01) ==
LOC: HO.HMCH 12:23
PROVIDERS: PCP Internal Medicine; Visit Provider Internal Medicine
DX: Z00.00 Encounter for general adult medical examination without abnormal findings (principal); E11.65 Type 2 diabetes mellitus with hyperglycemia; C61 Malignant neoplasm of prostate; E66.3 Overweight; Z68.30 Body mass index [BMI] 30.0-30.9, adult; I10 Essential (primary) hypertension; K76.0 Fatty (change of) liver, not elsewhere classified; R48.8 Other symbolic dysfunctions; B35.3 Tinea pedis; B35.1 Tinea unguium

== ENCOUNTER → 2024-08-25 12:22 | Outpatient (BNVA) | payer MEDICARE, MEDICAID, SELFPAY | PROVIDERS: PCP Internal Medicine; Visit Provider Internal Medicine | DX: Z00.00 Encounter for general adult medical examination without abnormal findings (principal); E11.65 Type 2 diabetes mellitus with hyperglycemia; I10 Essential (primary) hypertension; K76.0 Fatty (change of) liver, not elsewhere classified; C61 Malignant neoplasm of prostate; E66.3 Overweight; R48.8 Other symbolic dysfunctions; B35.3 Tinea pedis; B35.1 Tinea unguium | CPT/HCPCS: 83036; 96127 ==

== ENCOUNTER 2024-09-20 06:40 | Outpatient (REF) | payer MEDICARE, MEDICAID, SELFPAY ==
--- OUTSIDE RECORDS SUMMARY | 2024-09-20 06:42 | XMS_ITS | Clinical Summary ---
Author Organization 175 [facility] Address [address] [place] [address] Phone Care Team Providers Care Vegetable Specker Name Role Phone Mp Rust MD Primary Care Provider [phone] Allergies No known active allergies Medications metFORMIN [...] mellitus type 2 wit h neurological manifestations ([facility] V24, [facility] V28) 05/23/2016 Hypertension 05/23/2016 Onychomycosis 05/23/2016 Pes planus of both feet 05/23/2016 Encounters Date Type Department Care Team Description 07/14/2024 10:15 AM EDT Office Visit Orthopedic Surgery - [address] [phone] Patrick Lazo, DPM Arthritis of both ankles (Primary Dx); Dermatophytosis of nail; Verruca plantaris; Difficulty walking; Pain in toe of right foot; Pain in toe of left foot; Diabetic mononeuropathy simplex (CMS/HCC V24, CMS/[facility] V28); Acquired hallux valgus of left foot; [...] AM EDT Office Visit Orthopedic Surgery - [place] [address] [phone] Patrick Lazo, DPMikayla [address] [address] Health Maintenance Due Date Last Done Comments [...] Insurance [place] - [place]IC[place] Care Teams Vegetable Specker Relationship Specialty Start Date End Date Mp Rust MD [address] [place] [address] [address] [facility] [place] [address] PCP - General Internal Medicine 02/08/16
[2024-09-20 06:55] LABS: MANUAL DIFF FLAG NO
[2024-09-20 07:16] LABS: Basophils Absolute Auto 0.1 X10*3/uL (0.0-0.2); Basophils Percent Auto 1.1 % (0-2); Eosinophils Absolute Auto 0.2 X10*3/uL (0.0-0.4); Eosinophils Percent Auto 3.1 % (0-4); Hematocrit 40.3 % (42.0-52.0); Hemoglobin 13.6 g/dl (14.0-18.0); Imm Gran Abs Auto 0.01 X10*3/uL (0.00-0.03); Imm Gran Pct Auto 0.2 % (0.0-0.4); Lymphocytes Absolute Auto 2.3 X10*3/uL (1.2-4.9); Lymphocytes Percent Auto 42.9 % (20-40); Mean Corpuscular HGB Conc 33.7 g/dl (31.0-36.0); Mean Corpuscular Hemoglobin 29.8 pg (27.0-33.0); Mean Corpuscular Volume 88.2 fL (80.0-98.0); Mean Platelet Volume 10.7 fL (9.4-12.4); Monocytes Absolute Auto 0.6 X10*3/uL (0.1-1.2); Monocytes Percent Auto 10.7 % (2-11); Neutrophils Absolute Auto 2.2 x10*3/uL (2.0-8.3); Platelet Count 198 X10*3/uL (160-400); Red Blood Count 4.57 X10*6/uL (4.60-5.80); Red Cell Distribution Width 12.8 % (11.0-16.0); White Blood Count 5.2 X10*3/uL (4.8-10.8)
[2024-09-20 07:25] LABS: Estimated Average Glucose 169 mg/dL; Hemoglobin A1c % 7.5 % (<6.0); Total Hemoglobin (HGBA1C) 3572.3984 umol/L
[2024-09-20 07:54] LABS: Alanine Aminotransferase 55 U/L (0-40); Albumin Level 4.6 g/dL (3.5-5.0); Alkaline Phosphatase 86 U/L (39-117); Anion Gap 13 (12-20); Aspartate Amino Transferase 34 U/L (5-37); Bilirubin Total 0.6 mg/dL (0.0-1.0); Blood Urea Nitrogen 12 mg/dL (9-16); Calcium 9.5 mg/dL (8.4-10.2); Carbon Dioxide 28 mmol/L (22-29); Chloride 103 mmol/L (96-108); Cholesterol 105 mg/dL (<200); Estimated Glomerular Filt Rate > 60; Glucose Random 167 mg/dL (60-115); HDL Cholesterol 35 mg/dL (>40); LDL Cholesterol Calculated 51 mg/dL (<100); Sodium 140 mmol/L (135-145); Total Protein 7.5 g/dL (6.5-8.0); Triglycerides 97 mg/dL (<150)
[2024-09-20 08:01] LABS: Free T4 (Free Thyroxine) 0.99 ng/dL (0.71-1.85); Thyroid Stimulating Hormone 1.13 uIU/mL (0.32-4.0)
[2024-09-20 08:19] LABS: Folate 9.6 ng/mL (> or = 4.0); Vitamin B12 561 pg/mL (200-900)
[2024-09-24 18:49] LABS: PSA, Ultra Sensitive <0.02 ng/mL
== END 2024-09-20 06:41 | disposition home or self-care (01) ==
LOC: HO.LAB 06:40
PROVIDERS: PCP Internal Medicine; Visit Provider Internal Medicine
DX: Z12.5 Encounter for screening for malignant neoplasm of prostate (principal); E11.65 Type 2 diabetes mellitus with hyperglycemia; E78.00 Pure hypercholesterolemia, unspecified
CPT/HCPCS: 36415; 80053; 80061; 82607; 82746; 83036; 84153; 84439; 84443; 85025

== ENCOUNTER 2024-09-30 16:35 | Outpatient (REF) | payer MEDICARE, MEDICAID, SELFPAY ==
[2024-09-30 17:02] LABS: Creatinine Urine 52.83 mg/dL; Microalbumin Urine < 5.0 mg/L
== END 2024-09-30 16:36 | disposition home or self-care (01) ==
LOC: HO.LNP 16:35
PROVIDERS: Visit Provider Internal Medicine
DX: E11.65 Type 2 diabetes mellitus with hyperglycemia (principal)
CPT/HCPCS: 82043; 82570

== ENCOUNTER 2024-10-04 13:33 | Outpatient (AMB) | payer MEDICARE, MEDICAID, SELFPAY ==
[2024-10-04 13:40] VITALS: BP 130/82; PULSE 78; O2SAT 96; BMI 29.8
--- NOTE | 2024-10-04 13:40 | MHC.PC.OV ---
Vital Signs 10/04/24 13:40 Height 5 ft 11 in Weight 214 lb BMI 29.8 BP 130/82 Blood Pressure Location Lt brachial Position Sitting Pulse 78 Pulse Source Pulse Oximeter Pulse Oximetry (%) 96 Oxygen Delivery Method Room Air Intake Visit Reasons: 6 week follow up Manager Field Service Required: No Accompanied by: Self / Same As Patient Allergies No Known Allergies (No Known Allergies*) Allergy (Verified 10/04/24 13:40) Medication List - Last Reconciled 10/04/24 by Mp Rust MD acetaminophen ER (Mapap Arthritis Pain) 650 mg PO Q8H PRN amlodipine 5 mg PO DAILY ammonium lactate 12% 1 appl topical BID blood sugar diagnostic (True Metrix Glucose Test Strip) As directed blood-glucose meter As directed calcium carbonate 600 mg PO DAILY cholecalciferol (vitamin D3) 50 mcg (2 x 25 mcg (1,000 unit)) PO DAILY clotrimazole 1% 1 appl topical BID clotrimazole 1% 1 appl topical BID 4 weeks colloidal oatmeal 1% (Eucerin Eczema Relief) 1 appl topical .QD [DIABETIC SHOES As directed] fluvoxamine 100 mg PO BID hydroxyzine HCl 25 mg PO Q8H PRN lancets As directed check the blood sugars once a day lisinopril 10 mg PO DAILY 90 days lorazepam (Ativan) 0.5 mg orally 30 minutes before doctor's appointment; 30 days metformin 1,000 mg PO BID 30 days mineral oil-isopropyl myristat 1 appl topical TID-QID PRN oxybutynin chloride ER 5 mg PO DAILY 90 days [id number] 5-10-100 mg/5 mL (Robafen CF (phenylephrine)) 5 mL PO Q6H PRN risperidone (Risperdal) 1 mg PO DAILY risperidone (Risperdal) 2 mg with 1 mg Q 8 am daily; tamsulosin 0.4 mg PO QPM 90 days triamcinolone acetonide 0.5% 1 appl topical BID 1 week Tobacco use date assessed: 10/04/24 Fall risk assessment: No Falls in past year Last assessed Fall Risk: 10/04/24 Dental Screening Dental Screen Date: 10/04/24 Did you have a dental visit in the last 12 months?: Yes Did you have a dental problem in the last 6 months where you did not have access to dental care?: No Was dental information given to patient?: Patient has dentist [facility] Medical History (Updated 08/25/24 @ 13:06 by Mp Rust MD) Urinary frequency Urinary urgency Accidental drug ingestion Urinary incontinence Skin tag Rhinitis Cough Contact dermatitis and other eczema due to other specified agent Diverticulosis of colon Diarrhea Screening for colon cancer COVID-19 virus infection Anxiety Echolalia Tubular adenoma of colon Obesity (BMI 30-39.9) History of prostate cancer Hypertension Type 2 diabetes mellitus with hyperglycemia Surgical History Hx of colonoscopy History of hemicolectomy Family History Father No problems noted. Mother No problems noted. Social History Housing: Assisted Living Facility Alcohol intake: never Patient Tobacco Use Status: Never used Tobacco e-Cigarette/Vaping Use: Never Used Second Hand Smoke Exposure: No Advance Directives Date on File: 03/17/23 service: No Current occupational status: disabled Current occupational exposures/hazards: No Cognitive needs: Yes Hearing needs: No Vision needs: No Questionnaire PHQ-9 Over the last 2 weeks, how often have you been bothered by any of the following problems? 1. Little interest or pleasure in doing things: not at all 2. Feeling down, depressed, or hopeless: not at all 3. Trouble falling or staying asleep, or sleeping too much: not at all 4. Feeling tired or having little energy: not at all 5. Poor appetite or overeating: not at all 6. Feeling bad about yourself - or that you are a failure or have let yourself or your family down: not at all 7. Trouble concentrating on things, such as reading the newspaper or watching television: not at all 8. Moving or speaking so slowly that other people could have noticed. Or the opposite - being so fidgety or restless that you have been moving around a lot more than usual: not at all 9. Thoughts that you would be better off or of hurting yourself in some way: not at all Total score: 0 Source: Developed by Karime Herron.W. Amado, Christian Cabrera and colleagues, with an educational july from [email or web address]. Thrive Questionnaire Date Thrive assessed: 10/04/24 I am a: Patient What is your living situation today?: I have a steady place to live Within the past 12 months, did the food you bought not last and you didn't have the money to get more?: Never true Within the past 12 months, did you worry whether your food would run out before you got money to buy more?: Never true Do you have trouble paying for medicines?: No Do you have trouble getting transportation to medical appointments?: No Do you have trouble paying your heating and electricity bill?: No Do you have trouble taking care of your child, family member or friend?: No Do you have trouble with day-to-day activities such as bathing, preparing meals, shopping, managing finances, etc.?: No Are you currently unemployed and looking for a job?: No Are you interested in more education?: No Please select the resources that you would like help with: None Currently or been in a relationship where the following occur: I choose not to answer THRIVE Score: 0 AUDIT C Alcohol Use Questionnaire (AUDIT-C) 1. How often do you have a drink containing alcohol?: Never 3. How often do you have six or more drinks on one occasion?: Never Total Score: 0 DEVIN-7 AMB Questionnaire DEVIN-7 Date DEVIN - 7 assessed: 10/04/24 Feeling nervous, anxious, or on edge: 0 = Not at all Not being able to stop or control worryin = Not at all Worrying too much about different things: 0 = Not at all Trouble relaxin = Not at all Being so restless that it is hard to sit still: 0 = Not at all Becoming easily annoyed or irritable: 0 = Not at all Feeling afraid as if something awful might happen: 0 = Not at all Total DEVIN-7 score (0-4 normal; 5-9 mild; 10-14 moderate; 15-21 severe): 0 Source: Developed by Drs. Mann Jarvis, Karime Fischer, Christian Cabrera and colleagues, with an educational july from [email or web address]. Physical exam (Primary Care) Vital Signs: Last Vital Signs Pulse 78 10/04/24 13:40 BP 130/82 10/04/24 13:40 Pulse Ox 96 10/04/24 13:40 Oxygen Delivery Method Room Air 10/04/24 13:40 BMI result Body Mass Index 29.8 Tobacco/Smoking Status: Tobacco use Status Tobacco use date assessed 10/04/24 10/04/24 13:42 Patient Tobacco Use Status Never used Tobacco 10/04/24 13:42 e-Cigarette/Vaping Use Never Used 10/04/24 13:42 PHQ-9: PHQ-9 Score PHQ-9: Total score 0 10/04/24 13:42 Thrive Assessment: Date of Thrive Assessment Date Thrive assessed 10/04/24 10/04/24 13:42 Currently or been in a relationship where the following occur: I choose not to answer Const General: alert; No acute distress Eyes Conjunctivae: conjunctivae normal Resp Auscultation: clear to auscultation bilaterally Cardio Rate: regular rate Rhythm: regular rhythm GI Inspection: Yes normal to inspection Extrem General: Yes normal to inspection and No edema Coding Level of Care Code Est Pt Level 4 (20294) Complex EM visit Add On G2211 Diagnoses Type 2 diabetes mellitus with hyperglycemia, without long-term current use of insulin E11.65 Diabetes mellitus custodial insulin use: without middle or intermediate school principal use Overweight (BMI 25.0-29.9) E66.3 Fatty liver K76.0 Essential hypertension I10 Hypertension type: essential hypertension History of prostate cancer Z85.46 Assessment & Plan Assessment & Plan (1) Type 2 diabetes mellitus with hyperglycemia: Comment: Dr. Sanchez, Dr. Gillis Code(s): E11.65 - Type 2 diabetes mellitus with hyperglycemia Category: Medical Qualifiers: Diabetes mellitus custodial insulin use: without middle or intermediate school principal use Qualified Code(s): E11.65 - Type 2 diabetes mellitus with hyperglycemia Plan: Decrease the amount of carbohydrate intake, pasta, bread, rice and potatoes are all sugar and that is aside from all the sweet stuff, remember that fruits are good but they are Sweet also. Hemoglobin A1c goal of less than 7.0 patient presently on metformin a 1000 mg twice a day (2) Overweight (BMI 25.0-29.9): Code(s): E66.3 - Overweight Category: Medical Plan: Diet and exercise (3) Fatty liver: Code(s): K76.0 - Fatty (change of) liver, not elsewhere classified Category: Medical Plan: Low-fat diet and exercise (4) Hypertension: Code(s): I10 - Essential (primary) hypertension Category: Medical Qualifiers: Hypertension type: essential hypertension Qualified Code(s): I10 - Essential (primary) hypertension Plan: Continue with blood pressure medication. Decrease salt intake and exercise takes lisinopril 10 mg once a day amlodipine 5 mg once a day (5) History of prostate cancer: Comment: Two thousand fourteen seed implant Maria R March 2014Dr. Barker Code(s): Z85.46 - Personal history of malignant neoplasm of prostate Category: Medical Plan: Continue to follow-up with urology Plan History of Present Illness The patient is a 64-year-old male presenting for a follow-up visit for diabetes management and colon cancer screening. The patient has a history of diabetes mellitus, with a recent hemoglobin A1c of 7.5, indicating suboptimal control. He is currently on metformin 1000 mg twice daily and follows a low-fat diet and exercise regimen. The goal is to achieve a hemoglobin A1c of less than 7.0. The patient also has hypertension, managed with lisinopril 10 mg and amlodipine 5 mg daily. His blood pressure management is part of his ongoing care plan. He has a history of prostate cancer, with PSA levels currently undetectable, indicating no active disease. The patient has been diagnosed with fatty liver disease, with noted elevated liver enzymes. He has a history of tubular adenoma of the colon, with the last colonoscopy performed in March 2023. The patient is due for regular follow-up screenings to monitor for potential recurrence. Health Maintenance - Colon cancer screening with colonoscopy last performed in March 2023 - Regular follow-up for diabetes management with a goal of hemoglobin A1c less than 7.0 Social History - Diet: Low-fat diet - Exercise: Regular exercise regimen Review of Systems Physical Exam Results - Labs: Hemoglobin A1c 7.5, mild anemia with hemoglobin 13.6, hematocrit 40.3, normal electrolytes, normal renal function, blood sugar 167, elevated liver enzymes, LDL cholesterol 51, triglycerides 97, PSA undetectable, B12 and folic acid normal Plan The management plan for diabetes includes maintaining the current regimen of metformin 1000 mg twice daily, with an emphasis on achieving a hemoglobin A1c goal of less than 7.0 through continued adherence to a low-fat diet and regular exercise. Blood pressure management will continue with lisinopril 10 mg and amlodipine 5 mg daily, ensuring regular monitoring of blood pressure levels. The patient will continue to follow up with urology for prostate cancer surveillance, given the history of prostate cancer and current undetectable PSA levels. For fatty liver disease, monitoring of liver function tests will be necessary to assess any progression or improvement. Regular colonoscopy screenings are advised to monitor for recurrence of tubular adenoma, with the last colonoscopy performed in March 2023. Patient was informed and verbally consented to the use of an ambient scribe for clinic note documentation during this visit. Discussion Notes Patient Instructions Medications: New empagliflozin (Jardiance) 10 mg PO DAILY 30 tabs 5RF E11.65 - Type 2 diabetes mellitus with hyperglycemia
--- OUTSIDE RECORDS SUMMARY | 2024-10-04 15:47 | XMS_ITS | Patient Health Record ---
Author Organization [facility] Address [address] [place] [address] Care Team Providers Care Gas Blender Name Role Phone Mp Rust MD Primary Care Provider Carlitos Lala Jr Unavailable Reason For Referral No Information Medications Medication SIG (Take, Route, Frequency, Duration) Notes Start Date End Date Status RisperDAL 2mg 1 tablet Orally Once a day Active Colyte with Flavor Packs 240 GM As directed Orally Over the specified time. for 1 day(s) 12/06/2015 Active Aspir-Low 81 MG 1 tablet Orally Once a day Active Flomax 0.4 MG 1 capsule Orally in pm Active amLODIPine Besylate 5mg 1 tablet Orally Once a day Active Ferrous Sulfate 325mg 1 tablet Orally On ce a day Active Calcium 600mg 1 tablet Once a day Active Hydrocerin Plus cream cream Externally t wice a day Active Hydrocerin lotion lotion every pm Active Clotrimazole 1 % 1 application to aff ected area Externally Twice a day Active Lisinopril 10 MG 1 tablet Orally Once a day Active Luvox CR 100mg capsule orally twice a day Active Acetaminophen 650mg prn Active Vitamin D-3 2000units 1 capsule Orally O nce a day Active Problems Problem Type SNOMED Code ICD Code Onset Dates Problem Status W/U Status Risk Notes Problem [id number] Colon cancer screening (Z12.11) Active confirmed Problem 999917815 Long-term use of aspirin therapy (Z79.82) Active confirmed Plan Of Treatment Future Test Test Name Order Date COLONOSCOPY 11/14/2011 COLONOSCOPY 12/06/2015 Insurance Providers Payer Name Payer Address Payer Phone Subscriber Number Group Number Insured Name Patient Relationship to Insured Coverage Start Date Coverage End Date MEDICARE OF [place] [address] [place] [address] [phone] [id number] KAYLEN, MAYO Self - patient is the insured MEDICAID OF [facility] [address] [place] [phone] [id number] MAYO ABDULLAHI Self - patient is the insured Medical (General) History Medical History History ICD Code colonoscopy 02-20-2012 Autism Anxiety Dry skin Elevated blood pressure Tubular adenoma with high-grade dysplasi a Surgical History Surgery Date(Month/Year) Right Hemicolectomy 2010
== END 2024-10-04 14:28 | disposition home or self-care (01) ==
LOC: HO.HMCH 13:34
PROVIDERS: PCP Internal Medicine; Visit Provider Internal Medicine
DX: E11.65 Type 2 diabetes mellitus with hyperglycemia (principal); E66.3 Overweight; K76.0 Fatty (change of) liver, not elsewhere classified; I10 Essential (primary) hypertension; Z85.46 Personal history of malignant neoplasm of prostate

== ENCOUNTER → 2024-10-04 13:33 | Outpatient (BNVA) | payer MEDICARE, MEDICAID, SELFPAY | PROVIDERS: PCP Internal Medicine; Visit Provider Internal Medicine | DX: E11.65 Type 2 diabetes mellitus with hyperglycemia (principal); E66.3 Overweight; Z68.29 Body mass index [BMI] 29.0-29.9, adult; K76.0 Fatty (change of) liver, not elsewhere classified; I10 Essential (primary) hypertension; Z85.46 Personal history of malignant neoplasm of prostate; Z71.3 Dietary counseling and surveillance | CPT/HCPCS: 99212 ==

== ENCOUNTER 2025-02-03 15:32 | Outpatient (AMB) | payer MEDICARE, MEDICAID, SELFPAY ==
--- NOTE | 2025-02-03 15:33 | MHC.PC.OV ---
Vital Signs 02/03/25 15:34 02/03/25 15:49 Height 5 ft 11 in Weight 202 lb 8 oz BMI 28.2 BP 142/88 H 120/70 Blood Pressure Location Lt brachial Lt brachial Position Sitting Sitting Pulse 80 Pulse Source Pulse Oximeter Temp 98.2 F Temp Source Temporal Artery Scan Pulse Oximetry (%) 96 Oxygen Delivery Method Room Air Intake Visit Reasons: 3mth f/u Accompanied by: Convention Services Manager Allergies No Known Allergies (No Known Allergies*) Allergy (Verified 02/03/25 15:38) Tobacco use date assessed: 02/03/25 Fall risk assessment: No Falls in past year Last assessed Fall Risk: 02/03/25 Dental Screening Dental Screen Date: 02/03/25 Did you have a dental visit in the last 12 months?: Yes Did you have a dental problem in the last 6 months where you did not have access to dental care?: No Was dental information given to patient?: Patient has dentist [facility] Medical History Urinary frequency Urinary urgency Accidental drug ingestion Urinary incontinence Skin tag Rhinitis Cough Contact dermatitis and other eczema due to other specified agent Diverticulosis of colon Diarrhea Screening for colon cancer COVID-19 virus infection Anxiety Echolalia Tubular adenoma of colon Obesity (BMI 30-39.9) History of prostate cancer Hypertension Type 2 diabetes mellitus with hyperglycemia Surgical History Hx of colonoscopy History of hemicolectomy Family History Father No problems noted. Mother No problems noted. Social History Housing: Assisted Living Facility Alcohol intake: never Patient Tobacco Use Status: Never used Tobacco e-Cigarette/Vaping Use: Never Used Second Hand Smoke Exposure: No Advance Directives Date on File: 03/17/23 service: No Current occupational status: disabled Current occupational exposures/hazards: No Cognitive needs: Yes Hearing needs: No Vision needs: No Questionnaire PHQ-9 Over the last 2 weeks, how often have you been bothered by any of the following problems? 1. Little interest or pleasure in doing things: not at all 2. Feeling down, depressed, or hopeless: not at all 3. Trouble falling or staying asleep, or sleeping too much: not at all 4. Feeling tired or having little energy: not at all 5. Poor appetite or overeating: not at all 6. Feeling bad about yourself - or that you are a failure or have let yourself or your family down: not at all 7. Trouble concentrating on things, such as reading the newspaper or watching television: not at all 8. Moving or speaking so slowly that other people could have noticed. Or the opposite - being so fidgety or restless that you have been moving around a lot more than usual: not at all 9. Thoughts that you would be better off or of hurting yourself in some way: not at all Total score: 0 Source: Developed by Drs. Mann Jarvis, Karime Fischer, Christian Cabrera and colleagues, with an educational july from [employer]. Thrive Questionnaire Date Thrive assessed: 10/04/24 I am a: Patient What is your living situation today?: I have a steady place to live Within the past 12 months, did the food you bought not last and you didn't have the money to get more?: Never true Within the past 12 months, did you worry whether your food would run out before you got money to buy more?: Never true Do you have trouble paying for medicines?: No Do you have trouble getting transportation to medical appointments?: No Do you have trouble paying your heating and electricity bill?: No Do you have trouble taking care of your child, family member or friend?: No Do you have trouble with day-to-day activities such as bathing, preparing meals, shopping, managing finances, etc.?: No Are you currently unemployed and looking for a job?: No Are you interested in more education?: No Please select the resources that you would like help with: None Currently or been in a relationship where the following occur: I choose not to answer THRIVE Score: 0 AUDIT C Alcohol Use Questionnaire (AUDIT-C) 1. How often do you have a drink containing alcohol?: Never 3. How often do you have six or more drinks on one occasion?: Never Total Score: 0 DEVIN-7 AMB Questionnaire DEVIN-7 Date DEVIN - 7 assessed: 10/04/24 Feeling nervous, anxious, or on edge: 0 = Not at all Not being able to stop or control worryin = Not at all Worrying too much about different things: 0 = Not at all Trouble relaxin = Not at all Being so restless that it is hard to sit still: 0 = Not at all Becoming easily annoyed or irritable: 0 = Not at all Feeling afraid as if something awful might happen: 0 = Not at all Total DEVIN-7 score (0-4 normal; 5-9 mild; 10-14 moderate; 15-21 severe): 0 Source: Developed by Drs. Mann Jarvis, Karime Fischer, Christian Cabrera and colleagues, with an educational july from [employer]. Physical exam (Primary Care) Vital Signs: Last Vital Signs Temp 98.2 F 02/03/25 15:34 Pulse 80 02/03/25 15:34 BP 120/70 02/03/25 15:49 Pulse Ox 96 02/03/25 15:34 Oxygen Delivery Method Room Air 02/03/25 15:34 BMI result Body Mass Index 28.2 Tobacco/Smoking Status: Tobacco use Status Tobacco use date assessed 02/03/25 02/03/25 15:44 Patient Tobacco Use Status Never used Tobacco 02/03/25 15:34 e-Cigarette/Vaping Use Never Used 02/03/25 15:34 PHQ-9: PHQ-9 Score PHQ-9: Total score 0 02/03/25 15:59 Thrive Assessment: Date of Thrive Assessment Date Thrive assessed 10/04/24 02/03/25 15:34 Currently or been in a relationship where the following occur: I choose not to answer Const General: alert; No acute distress Eyes Conjunctivae: conjunctivae normal Resp Auscultation: clear to auscultation bilaterally Cardio Rate: regular rate Rhythm: regular rhythm GI Inspection: Yes normal to inspection Extrem General: Yes normal to inspection and No edema Office Procedures Flu Questionnaire Does the patient have a severe egg allergy?: No Does the patient have severe life threatening allergies?: No Does the patient have a fever or illness today?: No Has the patient ever had Guillain-[place] Syndrome?: No Has the patient ever had any past reaction to a flu shot?: No Results AMB Hemoglobin A1c AMB Hemoglobin A1c 6.5 % Last Edit by Rosalia Boyd CMA on 02/03/25 15:48 Immunizations Fluarix [id number] (PF) 45 mcg (15 mcg x 3)/0.5 mL IM syringe Performing Provider: Mp Rust MD Performing Location: [facility] Administered by: Jossie Butt CMA on 02/03/25 15:58 Dose Route Admin Location Dispensed Lot Number Expiration Date NDC [employer] 0.5 mL IM Left Deltoid 0.5 mL [id number] 10/10/25 [id number] [employer] VIS Given Date VIS Provided VIS Publication Date 02/03/25 Single Vaccine 24 Eligibility Eligibility Date Funding Source Not [facility] Eligible 02/03/25 Private Results Reviewed Results Reviewed: Laboratory Last Values Hgb A1c (Clinic) 6.5 % (4.0-6.0) H 02/03/25 15:44 Coding Level of Care Code Est Pt Level 4 (39641) Complex EM visit Add On G2211 Diagnoses Type 2 diabetes mellitus with hyperglycemia, without long-term current use of insulin E11.65 Diabetes mellitus group home insulin use: without extermination supervisor use Essential hypertension I10 Hypertension type: essential hypertension Overweight (BMI 25.0-29.9) E66.3 Fatty liver K76.0 History of prostate cancer Z85.46 Assessment & Plan Assessment & Plan (1) Type 2 diabetes mellitus with hyperglycemia: Comment: Dr. Sanchez, Dr. Gillis Code(s): E11.65 - Type 2 diabetes mellitus with hyperglycemia Category: Medical Qualifiers: Diabetes mellitus group home insulin use: without extermination supervisor use Qualified Code(s): E11.65 - Type 2 diabetes mellitus with hyperglycemia Plan: Decrease the amount of carbohydrate intake, pasta, bread, rice and potatoes are all sugar and that is aside from all the sweet stuff, remember that fruits are good but they are Sweet also. Patient is taking Jardiance 10 mg once a day with metformin a 1000 mg twice a day (2) Hypertension: Code(s): I10 - Essential (primary) hypertension Category: Medical Qualifiers: Hypertension type: essential hypertension Qualified Code(s): I10 - Essential (primary) hypertension Plan: Continue with blood pressure medication. Decrease salt intake and exercise continuing with lisinopril 10 mg once a day and amlodipine 5 mg once a day (3) Overweight (BMI 25.0-29.9): Code(s): E66.3 - Overweight Category: Medical Plan: Continue with diet and exercise (4) Fatty liver: Code(s): K76.0 - Fatty (change of) liver, not elsewhere classified Category: Medical Plan: Low-fat diet and exercise (5) History of prostate cancer: Comment: Two thousand fourteen seed implant Maria R March 2014Dr. Barker Code(s): Z85.46 - Personal history of malignant neoplasm of prostate Category: Medical Plan: PSA undetectable, continue to follow-up with urology Plan History of Present Illness The patient is a 64-year-old male presenting for a follow-up visit to manage chronic conditions and preventative care. The patient has a history of diabetes mellitus, with a hemoglobin A1c of 7.5% noted in September, which prompted the addition of Jardiance to his regimen of metformin. His blood glucose level was 167 mg/dL at that time. Recent testing shows improvement with an A1c of 6.5%. The patient also has hypertension, managed with lisinopril and amlodipine, and his blood pressure is well-controlled at 120/70 mmHg. He has a history of prostate cancer, with a CD implant placed in 2013, and his PSA levels remain undetectable. The patient has been diagnosed with fatty liver disease, with elevated liver enzymes noted in his last blood work. Anemia was also identified in his last blood work, described as mild. The patient reports seeing a alcohol law enforcement agent for hammer toe deformity, which is being monitored. Preventative care measures include receiving a flu vaccination during this visit. Health Maintenance - Flu vaccination administered during the visit. Social History Review of Systems - Cardiovascular: Denies chest pain or palpitations. - Musculoskeletal: Reports hammer toe deformity. - Dermatological: Reports presence of murphy angiomas. Physical Exam - Cardiovascular: Blood pressure 120/70 mmHg, indicating good control. Results - Labs: Hemoglobin A1c of 7.5% in September, improved to 6.5% recently. - Labs: Blood glucose level of 167 mg/dL in September. - Labs: Elevated liver enzymes indicating fatty liver disease. - Labs: Mild anemia noted in September. - Labs: LDL cholesterol level of 51 mg/dL. - Labs: PSA levels undetectable. Plan Patient was informed and verbally consented to the use of an ambient scribe for clinic note documentation during this visit. 1. Diabetes Mellitus The patient's diabetes mellitus is being managed with Jardiance 10 mg once daily and metformin 1000 mg twice daily. Recent improvement in glycemic control is noted with a reduction in hemoglobin A1c to 6.5%. 2. Hypertension Hypertension is managed with lisinopril 10 mg once daily and amlodipine 5 mg once daily, with current blood pressure well-controlled at 120/70 mmHg. 3. Prostate Cancer The patient has a history of prostate cancer with a CD implant placed in 2013, and PSA levels remain undetectable. Continued follow-up with urology is recommended. 4. Fatty Liver Disease The patient has elevated liver enzymes consistent with fatty liver disease. Lifestyle modifications including a low-fat diet and regular exercise are advised. 5. Anemia Mild anemia was noted in the last blood work, and monitoring is advised. 6. Hammer Toe Deformity The patient is under podiatric care for hammer toe deformity, and monitoring continues. 7. Preventative Care: Flu Vaccination The patient received a flu vaccination during this visit as part of preventative care measures. Discussion Notes During the visit, we discussed the management of the patient's diabetes mellitus, including the addition of Jardiance to improve glycemic control, which has shown positive results with a recent A1c of 6.5%. We also reviewed the patient's hypertension management, which remains well-controlled with current medications. The patient was advised to continue follow-up with urology for prostate cancer monitoring, given the undetectable PSA levels. Lifestyle modifications were recommended for managing fatty liver disease, including a low-fat diet and regular exercise. Preventative care measures included administering a flu vaccination during the visit. Patient Instructions - Continue taking Jardiance and metformin as prescribed for diabetes management. - Maintain current blood pressure medications: lisinopril and amlodipine. - Follow a low-fat diet and engage in regular exercise to manage fatty liver disease. - Continue regular follow-ups with urology for prostate cancer monitoring. - Return for routine check-ups and vaccinations as advised. Orders: Orders AMB Hemoglobin A1c Today Z13.9 - Encounter for screening, unspecified Influenza [id number] Immunization Today Z23 - Encounter for immunization Referrals Ophthalmology Referral E11.65 - Type 2 diabetes mellitus with hyperglycemia
[2025-02-03 15:34] VITALS: BP 142/88; PULSE 80; TEMP 36.8; O2SAT 96; BMI 28.2
[2025-02-03 15:49] VITALS: BP 120/70
--- OUTSIDE RECORDS SUMMARY | 2025-02-03 16:59 | XMS_ITS | Clinical Summary ---
Author Organization [address] [facility] Address [address] [place] [address] Phone Care Team Providers Care Locker Attendant Name Role Phone Mp Rust MD Primary Care Provider [phone] Allergies No known active allergies Medications metFORMIN [...] mellitus type 2 wit h neurological manifestations ([facility] V24, [facility] V28) 05/23/2016 Hypertension 05/23/2016 Onychomycosis 05/23/2016 Pes planus of both feet 05/23/2016 Encounters Date Type Department Care Team Description 01/11/2025 10:00 AM EDT Office Visit Orthopedic Surgery - [address] [phone] Patrick Lazo, DPM Arthritis of both ankles (Primary Dx); Dermatophytosis of nail; Verruca plantaris; Difficulty walking; Pain in toe of right foot; Pain in toe of left foot; Acquired hallux valgus of left foot; Diabetic mononeuropathy simplex ([facility] V24, [facility] V28); Acquired hallux valgus of right foot from [...] Care Team (Late st Contact Info) Description 04/17/2025 9:30 AM EST Office Visit Orthopedic Surgery - [place] [address] [address] Patrick Lazo, DPMikayla [address] [address] Health Maintenance Due Date Last Done Comments Colorectal Cancer Screening: Colonoscopy 1958 Diabetes: Annual GFR (Glomerular Filtration Rate) 1958 Diabetes: Annual Foot Exam 1968 Diabetes: Annual Retina Eye Exam 1968 RSV Immunization Adult Patients (1 - Risk 50-74 years 1-dose series) 2008 Abdominal Aortic Aneurysm (AAA) Screen 03/16/2022 Cholesterol Screening (Lipid Panel) 03/16/2022 Hepatitis C Screening 03/16/2022 Medicare Annual Wellness Visit 03/16/2022 Social Influencers of Health Screening 03/16/2022 Diabetes: Annual Urine Albumin-Creatinine Ratio (uACR) 03/23/2022 Diabetes: Blood Sugar Control Test (HGBA1C) 03/23/2022 Hypertension/CHF/CAD Annual BMP Blood Test 03/29/2022 Falls Risk Assessment 2023 Depression Screening 04/13/2024 Influenza Vaccine (#1) 2024 , 01/24/2023, 01/02/2022, Additional history exists COVID-19 Vaccine ( - 2023- season) 2024 06/13/2024, 05/22/2023, 08/26/2021, Additional history exists DTaP,Tdap,and Td Vaccines (2 - Td or Tdap) 11/14/2032 11/14/2022 Zoster Vaccines Completed 06/20/2020, 03/21/2020 Pneumococcal Vaccine: 50+ Years Completed 08/18/2023, 07/31/2017 HIB Vaccines Aged Out No longer eligi [...] Insurance MEDICAID - [place] MEDICARE Care Teams Locker Attendant Relationship Specialty Start Date End Date Po, Lorenver, MD [address] [place] [address] [address] [facility] [place] [address] PCP - General Internal Medicine 02/08/16
--- OUTSIDE RECORDS SUMMARY | 2025-02-03 16:59 | XMS_ITS | Patient Health Record ---
Author Organization [facility] Address [address] [place] [address] Care Team Providers Care Foot Setter Name Role Phone Mp Rust MD Primary Care Provider Carlitos Lala Jr Unavailable [phone] Reason For Referral No Information Medications Medication SIG (Take, Route, Frequency, Duration) Notes Start Date End Date Status RisperDAL 2mg 1 tablet Orally Once a day Active Colyte with Flavor Packs 240 GM As directed Orally Over the specified time.; Duration: 1 day(s) 12/06/2015 Active Aspir-Low 81 MG [...] Problem Status W/U Status Risk Notes Problem Colon cancer screening (249653915) Colon cancer screening (Z12.11) Active confirmed Problem Long-term current use of antiplatelet drug ([id number]) Long-term use of aspirin therapy (Z79.82) Active confirmed Plan Of Treatment Future Test Test Name Order Date COLONOSCOPY 11/14/2011 COLONOSCOPY 12/06/2015 Insurance Providers Payer Name Payer Address Payer Phone Subscriber Number Group Number Insured Name Patient Relationship to Insured Coverage Start Date Coverage End Date MEDICARE OF [place] [address] [place] [id number] [phone] [id number] MAYO ABDULLAHI Self - patient is the insured MEDICAID OF [facility] [address] [place] [address] [id number] MAYO ABDULLAHI Self - patient is the insured Medical (General) History Medical History History ICD Code colonoscopy 02-20-2012 Autism Anxiety Dry skin Elevated blood pressure Tubular adenoma with high-grade dysplasi a Surgical History Surgery Date(Month/Year) Right Hemicolectomy 2010
== END 2025-02-03 16:04 | disposition home or self-care (01) ==
LOC: HO.HMCH 15:33
PROVIDERS: PCP Internal Medicine; Visit Provider Internal Medicine
DX: E11.65 Type 2 diabetes mellitus with hyperglycemia (principal); I10 Essential (primary) hypertension; E66.3 Overweight; K76.0 Fatty (change of) liver, not elsewhere classified; Z85.46 Personal history of malignant neoplasm of prostate; Z23 Encounter for immunization; Z13.9 Encounter for screening, unspecified

== ENCOUNTER → 2025-02-03 15:32 | Outpatient (BNVA) | payer MEDICARE, MEDICAID, SELFPAY | PROVIDERS: PCP Internal Medicine; Visit Provider Internal Medicine | DX: E11.65 Type 2 diabetes mellitus with hyperglycemia (principal); I10 Essential (primary) hypertension; E66.3 Overweight; K76.0 Fatty (change of) liver, not elsewhere classified; Z85.46 Personal history of malignant neoplasm of prostate; Z13.31 Encounter for screening for depression; Z23 Encounter for immunization | CPT/HCPCS: 83036; 90471; 90656; 96127; 99212 ==